=== PATIENT | female | born 1995 | race Hispanic/Latino ===

== ENCOUNTER → 2018-08-02 12:21 | Outpatient (CLI) | payer BC, SELFPAY ==
--- NOTE | 2018-08-06 12:09 | DIET.PN ---
Met for initial nutrition consultation. Pt reports she became very inactive due to depression; now doing better w/counseling and medication. Meds side effect cause wt gain; pt wants to lose wt. DX: Med nutrient interactions, wt gain Meds include: abilify Ht: 6 Weight hx- 1 yr ago: 160# Current: 227# BMI 44 Exercise: None. Used to like weight lifting & may try that again. Likes walking and running. Usual diet: likes anything. 2-3 meals, 1 snack daily. Eats w/family; helps w/food prep and shopping. Eat minimal processed foods. Assessment: Demonstrates good knowledge of healthy food choices and how to lose wt; needs encouragement and assistance with staying on focus now that depression is better controlled. Appears ready to work at lifestyle changes. Intervention: Provided ed on healthy plate model, portion control, importance of keeping track. Plan: Keep food record (prefers written journal) Increase exercise, starting with walking 15min 4X/week; increase weekly for goal of 30-60 minutes 4-5X/week. Will check insurance coverage; hopes to schedule f/u
== END ==
PROVIDERS: Visit Provider Psychiatry & Neurology Psychiatry
DX: E66.9 Obesity, unspecified (principal)
CPT/HCPCS: 97802

== ENCOUNTER → 2018-09-29 06:34 | Outpatient (CLI) | payer BC, SELFPAY ==
--- NOTE | 2018-09-29 06:37 | DI.US.S_ITS ---
PROCEDURE: US PELVIC COMPLETE INDICATIONS: AMENORRHEA TECHNIQUE: Real-time scanning was performed of the pelvic organs, with image documentation. Additional endovaginal scanning was necessary due to incomplete visualization of the adnexal and endometrial structures by transabdominal scanning. COMPARISON: None. FINDINGS: Transabdominal scanning: Limited scanning through the kidneys shows no hydronephrosis. No pathologic free abdominal or pelvic fluid. Endovaginal scanning: Uterus: Uterus is anteverted measuring 6.7 x 2.7 x 4.1 cm. The endometrium measures 7.8 mm in combined thickness. Ovaries: Right ovary measures 4.5 x 2.0 x 2.0 cm. Left ovary measures 2.9 x 2.0 x 1.4 cm. there multiple small cysts in ovaries. IMPRESSION: 1. Normal appearance of uterus. 2. Multiple small cysts in ovaries. Cannot rule out polycystic ovaries. Dictated by: Asim Jimenez M.D. on 09/29/2018 at 11:38 Approved by: Asim Jimenez M.D. on 09/29/2018 at 17:48
== END ==
PROVIDERS: PCP Family Medicine; Visit Provider Family Medicine
DX: N91.2 Amenorrhea, unspecified (principal); N83.202 Unspecified ovarian cyst, left side; N83.201 Unspecified ovarian cyst, right side
CPT/HCPCS: 76830; 76856

== ENCOUNTER → 2018-11-15 15:26 | Outpatient (CLI) | payer BC, SELFPAY ==
[2018-11-15 18:03] LABS: Follicle Stimulating Hormone 3.84 mIU/mL; Luteinizing Hormone 8.44 mIU/mL; Prolactin 11.6 ng/mL (3.0-18.6)
[2018-11-15 18:13] LABS: TSH w/ Reflex to FT4 1.87 uIU/mL (0.47-4.68)
[2018-11-18 21:35] LABS: Testosterone Total 55 ng/dL (2-45)
== END ==
PROVIDERS: PCP Family Medicine
DX: E28.2 Polycystic ovarian syndrome (principal)
CPT/HCPCS: 36415; 83001; 83002; 84146; 84402; 84403; 84443

== ENCOUNTER → 2019-02-22 12:06 | Outpatient (CLI) | payer BC, SELFPAY ==
[2019-02-22 13:12] LABS: Hemoglobin A1C% w Est Avg Glu 5.7 % (4.0-6.0)
[2019-02-22 13:24] LABS: Glucose 136 mg/dL (70-100)
[2019-02-22 13:35] LABS: LDL Cholesterol Direct 105 mg/dL (<100)
[2019-02-22 16:22] LABS: Follicle Stimulating Hormone 3.39 mIU/mL; Luteinizing Hormone 4.87 mIU/mL
[2019-02-26 11:12] LABS: Sex Hormone Binding Globulin 13 nmol/L (17-124); Testosterone, Bioavailable 16.8 ng/dL (0.5-8.5); Testosterone, Total 37 ng/dL (2-45); Testosterone,Free 8.2 pg/mL (0.2-5.0)
[2019-02-28 14:27] LABS: Albumin 4.5
--- NOTE | 2019-04-09 14:40 | PC.NURSE ---
Pt brought to ED by mother. Mother states pt is bipolar and in a manic state and unsafe and pt got out of [facility] [place] this morning. Mother states pt stated if mother didn't stop car she would jump out. Mother stopped car, didn't jump out. Mother brought pt to ED stating they were coming to bankruptcy processor patient's car. Marti SCOTT called as pt initially would not enter building and it was not known if patient was safe or having escalating behavior as per mother's report. Pt then voluntarily came into ED waiting area. Pt states she does not need to be seen. She denies SI / HI and is oriented to time / place/ person and situation. She is cooperative but appears angry. She states she has her medication and shows me the prescription vial. Police arrived and spoke to both parties. Mother states she feels safe being in car w/ patient. Verbal instructions given to all parties to return for SI/HI. Instructed mother to call 911 if any threatening behavior / behaviors making her feel unsafe. Marti SCOTT agree w/ plan of care.
== END ==
PROVIDERS: PCP Family Medicine
DX: E28.2 Polycystic ovarian syndrome (principal); Z11.3 Encounter for screening for infections with a predominantly sexual mode of transmission
CPT/HCPCS: 36415; 82040; 82947; 83001; 83002; 83036; 83721; 84270; 84403

== ENCOUNTER 2019-04-10 07:02 | Emergency (ER) | payer BC, SELFPAY ==
[2019-04-10 07:14] VITALS: BP 160/80; PULSE 91; RESP 16; TEMP 37.5; O2SAT 95; BMI 29.2
--- NOTE | 2019-04-10 07:22 | PC.NURSE ---
Pt's mom, Albina, is now in room with patient's permission.
--- NOTE | 2019-04-10 08:24 | ED_ITS ---
HPI - Psych General Chief Complaint: Psychiatric Symptoms Stated Complaint: states mental illness Time Seen by Provider: 04/10/19 07:07 Source: patient Mode of arrival: ambulatory Limitations: no limitations History of Present Illness HPI Narrative: 23-year-old female nonsmoker with history of bipolar presents with her mother and a chief complaint of insomnia for the past 2 days in feeling slightly nauseated. Additionally she has a nontender bump on the right anterior neck that she wants looked at. Patient states she has not taken her bipolar medications for 2 days because she does not like the way they make her feel. She denies any other change in diet or medications. She has had conversations with her psychiatrist about these medications and they are in agreement this is the most appropriate approach for now. She has a firm understanding that she will require medications and understands that if she does not take them she may get herself into trouble. She denies any suicidal or homicidal ideations. She also states that she has not taken her Ambien and this is likely why she is not sleeping. MD complaint: other Onset (ago): day(s) Duration: constant History of same: Yes Relieving factors: medication Exacerbating factors: other Context: not taking psychiatric medications Associated psychiatric symptoms: none Associated symptoms: nausea Treatments prior to arrival: none Related Data Previous Rx's Medication Instructions Recorded metformin 500 mg tablet See Rx Instructions PO .COMPLEX 11/19/18 #120 tab norethindrone 1.5 mg-ethinyl 1 tab PO DAILY #84 tab 11/19/18 estradiol 30 mcg(21)/iron 75 mg(7) tablet spironolactone 100 mg tablet 100 mg PO BID #60 tab 11/19/18 aripiprazole 30 mg tablet 30 mg PO DAILY 90 Days #90 tab 01/11/19 zolpidem 5 mg tablet 5 mg PO BEDTIME PRN #5 tab 03/15/19 Allergies Allergy/AdvReac Type Severity Reaction Status Date / Time No Known Drug Allergies Allergy Verified 04/10/19 07:14 Review of Systems Constitutional Denies chills, Reports difficulty sleeping, Reports fatigue, Denies fever(s), Denies lethargy and Denies weakness Eyes Denies change in vision, Denies eye discharge, Denies irritation and Denies loss of vision ENT Ears, Nose, Mouth, and Throat: Denies change in voice, Denies neck pain and Denies sore throat Cardiovascular Denies chest pain, Denies irregular heart rhythm, Denies lightheadedness, Denies palpitations, Denies dyspnea, Denies dyspnea on exertion and Denies orthopnea Respiratory Denies cough, Denies dyspnea, Denies dyspnea on exertion and Denies wheezing Gastrointestinal Gastrointestinal: Denies abdominal pain, Denies change in bowel habits, Denies diarrhea, Reports nausea and Denies vomiting Genitourinary Denies hematuria, Denies flank pain, Denies urinary incontinence and Denies urinary urgency Musculoskeletal Denies neck pain Integumentary/Breasts Denies pruritus, Denies erythema, Denies rash and Denies wounds Neurologic Denies confusion, Denies loss of vision and Denies weakness Psychiatric Denies anxiety, Denies confusion, Denies depression, Denies homicidal ideation and Denies suicidal ideation Endocrine Reports fatigue and Denies palpitations Hematologic/Lymphatic Denies easy bruising Allergic/Immunologic Denies wheezing [facility] Medical History Asthma (Chronic 1996) Bipolar disorder (Chronic 2017) Depression (Chronic 2015) PTSD (post-traumatic stress disorder) (Chronic 2015) Schizophrenia (Chronic 2015) Surgical History No history of previous surgery (Resolved) Family History Father No problems noted. Mother No problems noted. Social History Smoking Status: Never smoker alcohol intake: never Family History Father No problems noted. Mother No problems noted. Social History Smoking Status: Never smoker alcohol intake: never Exam Narrative Exam Narrative: GENERAL: 23-year-old female in no distress, visibly bothered by being here HEAD: Atraumatic. Normocephalic. No temporal or scalp tenderness. EYES: Pupils equal round and reactive. Extraocular motions intact. No scleral icterus. No injection or drainage. ENT: Nose without bleeding, purulent drainage or septal hematoma. Throat without erythema, tonsillar hypertrophy or exudate. Uvula midline. Airway patent. Nontender right anterior cervical node, freely movable, no redness or warmth NECK: Trachea midline. Supple, nontender, no meningeal signs. CARDIOVASCULAR: Regular rate and rhythm without murmurs, gallops, or rubs. RESPIRATORY: Clear to auscultation. Breath sounds equal bilaterally. No wheezes, rales, or rhonchi. GASTROINTESTINAL: Abdomen soft, non-tender, nondistended. No hepato- splenomegaly, or palpable masses. No guarding. EXTREMITIES: No clubbing, cyanosis, or edema. No joint tenderness, effusion, or edema noted. BACK: Nontender without deformity or crepitance. No flank tenderness. NEURO: AOx3. SKIN: No rash or erythema. Initial Vital Signs Initial Vital Signs: Vital Signs Temperature 99.5 F 04/10/19 07:14 Pulse Rate 91 H 04/10/19 07:14 Respiratory Rate 16 04/10/19 07:14 Blood Pressure 160/80 H 04/10/19 07:14 Pulse Oximetry 95 04/10/19 07:14 Course Vital Signs - 8 hr 04/10/19 07:14 Temperature 99.5 F Pulse Rate 91 H Respiratory Rate 16 Blood Pressure 160/80 H Pulse Oximetry 95 [facility] - Psych Lab Data Point of Care Testing Rapid Strep A Negative [facility] Narrative Medical decision making narrative: 23-year-old female with good insight and full capacity. She denies suicidal or homicidal ideations. She is performing her ADLs without difficulty. She has a firm understanding of why she needs to take her medications and what can happen if she does not. Patient agrees to become compliant with medications. We had a lengthy discussion about risks and benefits as well as return precautions. She has had her questions answered to her apparent satisfaction. Discharge Plan Departure Patient Disposition: Home Clinical Impression: Reactive cervical lymphadenopathy Bipolar disorder Qualifiers: Active/Remission status: remission status unspecified Qualified Code(s): F31.9 - Bipolar disorder, unspecified Discharge Date/Time: 04/10/19 08:05 Instructions: DI for Bipolar Disorder Activity Restrictions/Additional Instructions: *You have been diagnosed with [cervical reactive lymphadenopathy, nausea, insomnia] *What to do: *Take medications as directed *Follow up with your primary care provider in 2-3 days, call for an appointment. Let them know you were seen in the Emergency Department and that we ask that you be seen in follow up *Return to ER if you should have any new, worsening or concerning symptoms Prescriptions: No Action aripiprazole 30 mg tablet 30 mg PO DAILY 90 Days Qty: 90 RF: 3 zolpidem 5 mg tablet 5 mg PO BEDTIME PRN (Reason: insomnia) Qty: 5 RF: 1 metformin 500 mg tablet See Rx Instructions PO .COMPLEX Qty: 120 RF: 3 Loestrin Fe 1.5/30 (28-Day) 1.5 mg-30 mcg (21)/75 mg (7) tablet 1 tab PO DAILY Qty: 84 RF: 5 spironolactone 100 mg tablet 100 mg PO BID Qty: 60 RF: 5 Referrals: Radha Craig DO [Primary Care Provider] -
== END 2019-04-10 08:05 | disposition home or self-care (01) ==
PROVIDERS: Emergency Provider Emergency Medicine; PCP Family Medicine
DX: R59.0 Localized enlarged lymph nodes (principal); F31.9 Bipolar disorder, unspecified
CPT/HCPCS: 87880; 99282

== ENCOUNTER → 2019-11-04 13:09 | Outpatient (CLI) | payer BC, SELFPAY ==
--- NOTE | 2019-11-04 13:11 | DI.RAD.S_ITS ---
PROCEDURE: XR CHEST 2V INDICATIONS: COUGH TECHNIQUE: 2 views of the chest were acquired. COMPARISON: None. FINDINGS: Surgical changes and devices: None. Lungs and pleura: Lungs are clear. No pleural effusions or pneumothorax. Mediastinum: Mediastinal contours are normal. Heart size is normal. Bones and chest wall: No suspicious bony abnormalities. Soft tissues appear unremarkable. IMPRESSION: No acute cardiopulmonary disease process. Dictated by: Dai Mcfarlane MD, PhD on 11/04/2019 at 13:24 Approved by: Dai Mcfarlane MD, PhD on 11/04/2019 at 13:24
== END ==
PROVIDERS: PCP Family Medicine; Referring Provider Physician Assistant; Visit Provider Physician Assistant
DX: R05 Cough (principal)
CPT/HCPCS: 71046

== ENCOUNTER → 2020-03-10 15:05 | Outpatient (CLI) | payer BC, SELFPAY ==
[2020-03-14 09:01] LABS: COVID19 Sendout Detected (Not Detected)
== END ==
PROVIDERS: PCP Family Medicine; Visit Provider Physician Assistant
DX: Z20.818 Contact with and (suspected) exposure to other bacterial communicable diseases (principal)
CPT/HCPCS: 87635

== ENCOUNTER → 2020-05-11 11:22 | Outpatient (CLI) | payer BC, SELFPAY ==
[2020-05-11 12:33] LABS: Add Manual Diff / Slide Review NO; Basophils Absolute Auto 0 /uL (0-100); Basophils Percent Auto 0.7 % (0-2); Eosinophils Absolute Auto 100 /uL (0-450); Eosinophils Percent Auto 1.7 % (2-4); Hematocrit 43.1 % (36-46); Hemoglobin 14.4 g/dL (12.0-16.0); Lymphocytes Absolute Auto 2000 /uL (1100-4500); Mean Corpuscular HGB Conc 33.4 % (30-36); Mean Corpuscular Hemoglobin 28.3 PG (26-34); Mean Corpuscular Volume 84.9 fL (80-100); Monocytes Absolute Auto 400 /uL (0-900); Monocytes Percent Auto 7.2 % (3-14); Neutrophils Absolute Auto 3200 /uL (1500-7000); Neutrophils Percent Auto 55.4 % (50-75); Platelet Count 185 X10^3/uL (150-400); Red Blood Cell Count 5.07 X10^6/uL (4.0-5.2); Red Cell Distribution Width 14.4 % (11.6-14.8); White Blood Cell Count 5.8 X10^3/uL (4.5-11.0)
[2020-05-11 12:42] LABS: Hemoglobin A1C% w Est Avg Glu 11.1 % (4.0-6.0)
[2020-05-11 13:34] LABS: Free T4, Direct Thyroxine 2.11 ng/dL (0.78-2.19)
[2020-05-11 13:48] LABS: Thyroid Stimulating Hormone 3.72 uIU/mL (0.47-4.68)
[2020-05-11 14:23] LABS: Alanine Aminotransferase 117 IU/L (<35); Albumin 4.2 g/dL (3.5-5.0); Albumin Globulin Ratio 1.4 (1.0-2.8); Alkaline Phosphatase 80 U/L (38-126); Aspartate Aminotransferase 142 IU/L (14-36); BUN Creatinine Ratio 12.7 (6-22); Bilirubin Total 0.6 mg/dL (0.2-1.3); Blood Urea Nitrogen 9 mg/dL (7-17); Calcium 8.9 mg/dL (8.4-10.2); Carbon Dioxide 26 mmol/L (22-32); Chloride 95 mmol/L (98-107); Cholesterol 168 mg/dL (140-199); Estimated Glomerular Filt Rate > 60.0 mL/min (>60); Globulin 3.1 g/dL (1.7-4.1); HDL Cholesterol 24 mg/dL (40-60); HEMOLYSIS < 15 (0-50); LDL Cholesterol Calculated 71 mg/dL (<100); Potassium 4.3 mmol/L (3.4-5.1); Sodium 132 mmol/L (137-145); Total Protein 7.3 g/dL (6.3-8.2); Triglycerides 367 mg/dL (35-150)
[2020-05-11 14:39] LABS: Glucose 511 mg/dL (70-100)
[2020-05-12 04:12] LABS: Valproic Acid (Depakene) Total 122 ug/mL (50-100)
== END ==
PROVIDERS: Referring Provider Psychiatry & Neurology Psychiatry; Visit Provider Psychiatry & Neurology Psychiatry
DX: F25.0 Schizoaffective disorder, bipolar type (principal); Z51.81 Encounter for therapeutic drug level monitoring
CPT/HCPCS: 36415; 80053; 80061; 80164; 83036; 84439; 84443; 85025

== ENCOUNTER → 2020-07-31 10:16 | Outpatient (CLI) | payer BC, SELFPAY ==
[2020-07-31 12:11] LABS: Alanine Aminotransferase 37 IU/L (<35); Albumin 4.3 g/dL (3.5-5.0); Albumin Globulin Ratio 1.4 (1.0-2.8); Alkaline Phosphatase 66 U/L (38-126); Aspartate Aminotransferase 26 IU/L (14-36); BUN Creatinine Ratio 14.3 (6-22); Bilirubin Total 0.5 mg/dL (0.2-1.3); Blood Urea Nitrogen 8 mg/dL (7-17); Calcium 9.7 mg/dL (8.4-10.2); Carbon Dioxide 26 mmol/L (22-32); Chloride 99 mmol/L (98-107); Estimated Glomerular Filt Rate > 60.0 mL/min (>60); Globulin 3.1 g/dL (1.7-4.1); Glucose 360 mg/dL (70-100); HEMOLYSIS < 15 (0-50); Potassium 4.2 mmol/L (3.4-5.1); Sodium 135 mmol/L (137-145); Total Protein 7.4 g/dL (6.3-8.2)
[2020-08-01 08:29] LABS: Valproic Acid (Depakene) Total 86 ug/mL (50-100)
== END ==
PROVIDERS: PCP Registered Nurse; Referring Provider Psychiatry & Neurology Psychiatry; Visit Provider Psychiatry & Neurology Psychiatry
DX: F25.0 Schizoaffective disorder, bipolar type (principal); Z51.81 Encounter for therapeutic drug level monitoring; F43.10 Post-traumatic stress disorder, unspecified; R63.5 Abnormal weight gain; T50.905A Adverse effect of unspecified drugs, medicaments and biological substances, initial encounter
CPT/HCPCS: 36415; 80053; 80164; 80173; 96372

== ENCOUNTER → 2020-08-13 09:46 | Outpatient (CLI) | payer BC, SELFPAY ==
[2020-08-13 11:07] LABS: Hemoglobin A1C% w Est Avg Glu 12.9 % (4.0-6.0)
[2020-08-13 11:29] LABS: Creatinine Urine Random 89.2 mg/dL
[2020-08-13 11:31] LABS: Microalbumi Creatinin Ratio Ur 44.8 ug/mg CR (<30)
== END ==
PROVIDERS: PCP Registered Nurse; Referring Provider Registered Nurse; Visit Provider Registered Nurse
DX: E11.9 Type 2 diabetes mellitus without complications (principal)
CPT/HCPCS: 36415; 82043; 82570; 83036

== ENCOUNTER → 2021-01-21 08:20 | Outpatient (CLI) | payer BC, OTHER, SELFPAY ==
[2021-01-21 09:18] LABS: Add Manual Diff / Slide Review NO; Basophils Absolute Auto 0 /uL (0-100); Basophils Percent Auto 0.6 % (0-2); Eosinophils Absolute Auto 100 /uL (0-450); Eosinophils Percent Auto 1.4 % (2-4); Hematocrit 42.2 % (36-46); Hemoglobin 14.8 g/dL (12.0-16.0); Lymphocytes Absolute Auto 2700 /uL (1100-4500); Mean Corpuscular HGB Conc 35.1 % (30-36); Mean Corpuscular Hemoglobin 29.8 PG (26-34); Mean Corpuscular Volume 84.9 fL (80-100); Monocytes Absolute Auto 400 /uL (0-900); Monocytes Percent Auto 5.8 % (3-14); Neutrophils Absolute Auto 3700 /uL (1500-7000); Neutrophils Percent Auto 53.2 % (50-75); Platelet Count 247 X10^3/uL (150-400); Red Blood Cell Count 4.97 X10^6/uL (4.0-5.2); Red Cell Distribution Width 12.7 % (11.6-14.8)
[2021-01-21 09:34] LABS: Hemoglobin A1C% w Est Avg Glu 9.9 % (4.0-6.0)
[2021-01-21 10:28] LABS: Cholesterol 173 mg/dL (140-199); HDL Cholesterol 31 mg/dL (40-60); LDL Cholesterol Calculated 99 mg/dL (<100); Triglycerides 215 mg/dL (35-150)
[2021-01-21 10:30] LABS: Alanine Aminotransferase 38 IU/L (<35); Albumin 4.4 g/dL (3.5-5.0); Albumin Globulin Ratio 1.4 (1.0-2.8); Alkaline Phosphatase 67 U/L (38-126); Aspartate Aminotransferase 31 IU/L (14-36); BUN Creatinine Ratio 11.8 (6-22); Bilirubin Total 0.4 mg/dL (0.2-1.3); Blood Urea Nitrogen 6 mg/dL (7-17); Calcium 9.4 mg/dL (8.4-10.2); Carbon Dioxide 25 mmol/L (22-32); Chloride 99 mmol/L (98-107); Estimated Glomerular Filt Rate > 60.0 mL/min (>60); Globulin 3.2 g/dL (1.7-4.1); Glucose 308 mg/dL (70-100); HEMOLYSIS < 15 (0-50); Potassium 4.1 mmol/L (3.4-5.1); Sodium 136 mmol/L (137-145); Total Protein 7.6 g/dL (6.3-8.2)
[2021-01-21 11:36] LABS: Creatinine Urine Random 323.4 mg/dL
[2021-01-21 12:02] LABS: Microalbumi Creatinin Ratio Ur 90.9 ug/mg CR (<30); Microalbumin Urine Random 29.4 mg/dL (0-1.6)
[2021-01-22 05:50] LABS: Valproic Acid (Depakene) Total < 4 ug/mL (50-100)
== END ==
PROVIDERS: Psychiatry & Neurology Psychiatry; PCP Registered Nurse; Referring Provider Registered Nurse; Visit Provider Registered Nurse
DX: Z51.81 Encounter for therapeutic drug level monitoring (principal); R63.5 Abnormal weight gain; T50.905A Adverse effect of unspecified drugs, medicaments and biological substances, initial encounter; F25.0 Schizoaffective disorder, bipolar type; E78.5 Hyperlipidemia, unspecified; E11.9 Type 2 diabetes mellitus without complications
CPT/HCPCS: 36415; 80053; 80061; 80164; 82043; 82570; 83036; 85025

== ENCOUNTER 2021-08-31 13:02 | Emergency (ER) | payer BC, OTHER, MEDICAID, SELFPAY ==
[2021-08-31 14:05] VITALS: BP 154/92; PULSE 94; RESP 18; TEMP 36.8; O2SAT 96; BMI 36.3
[2021-08-31 14:23] LABS: Bacteria Urine Few (2-10); Culture Indicated Urine Cult Not Indicated; RBC Urine None Seen (0-5/HPF); Squamous Epithelial Cell Urine 0-1 /HPF (0-5/HPF); WBC Urine 0-1/HPF (0-5/HPF)
[2021-08-31 15:09] LABS: COVID19 -Nasal RAPID Negative (Negative)
== END 2021-08-31 16:00 | disposition left against medical advice (07) ==
PROVIDERS: Emergency Medicine; Emergency Provider Nurse Practitioner Critical Care Medicine; PCP Registered Nurse
DX: Z53.21 Procedure and treatment not carried out due to patient leaving prior to being seen by health care provider (principal); Z20.822 Contact with and (suspected) exposure to COVID-19
CPT/HCPCS: 81003; 81015; 81025; 87635; 99282; C9803

== ENCOUNTER 2021-09-01 13:54 | Emergency (ER) | payer BC, OTHER, MEDICAID, SELFPAY ==
[2021-09-01 14:08] VITALS: BP 150/67; PULSE 106; RESP 16; TEMP 36.8; O2SAT 95; BMI 36.3
[2021-09-01 14:36] LABS: COVID19 -Nasal RAPID Negative (Negative)
[2021-09-01 15:40] LABS: Appearance Urine UA SL CLOUDY; Bilirubin Urine UA NEGATIVE (NEGATIVE); Color Urine UA YELLOW; Glucose Urine UA 2+ g/dL (Negative); Ketones Urine UA TRACE (NEGATIVE); Leukocyte Esterase Urine UA 1+ (NEGATIVE); Nitrite Urine UA NEGATIVE (Negative); Occult Blood Urine UA 3+ (Negative); Protein Urine UA TRACE (Negative); Specific Gravity Urine UA <=1.005 (1.000-1.035); Urobilinogen Urine UA 0.2 E.U./dL (0.2)
--- NOTE | 2021-09-01 15:48 | ED.NAVMDI ---
HPI - Nausea/Vomiting/Diarrhea <JEFF Ang - Last Filed: 09/01/21 16:11> General Chief complaint: Nausea/Vomiting/Diarrhea Stated complaint: Vomiting x4 days Time Seen by Provider: 09/01/21 15:05 Source: patient Mode of arrival: Ambulatory History of Present Illness HPI Narrative: For your return to the emergency department today requesting COVID test, she reports she has had 3 days of nausea vomiting however this is resolved today. She denies any fever, chest pain, shortness breath, difficulty breathing, weakness, dizziness, or any other complaints. She denies any sick contacts, she denies any diarrhea, she denies any pain of any kind including abdominal pain or suprapubic pain. Related Data Previous Rx's Medication Instructions Recorded glucometer and test strips #1 ea 08/13/20 metformin 1,000 mg tablet,extended 1,000 mg PO BID #60 tab 01/08/21 release 24hr zolpidem 5 mg tablet 5 mg PO BEDTIME PRN #20 tab 05/13/21 haloperidol decanoate 100 mg/mL See Rx Instructions .ROUTE 06/17/21 intramuscular solution .COMPLEX #1 ml divalproex 500 mg tablet,delayed 500 mg PO BEDTIME #30 tab 08/06/21 release prazosin 5 mg capsule 5 mg PO .COMPLEX #30 cap 08/06/21 nitrofurantoin 100 mg PO BID 7 Days #14 cap 09/01/21 monohydrate/macrocrystals 100 mg capsule (Macrobid) Allergies Allergy/AdvReac Type Severity Reaction Status Date / Time No Known Drug Allergies Allergy Verified 08/31/21 14:08 Review of Systems <JEFF Ang - Last Filed: 09/01/21 16:11> Review of Systems Narrative: General: denies fever, chills Head/Neck: denies headache, neck pain Eyes: denies visual changes, eye pain Cardio: denies chest pain, palpitations Respiratory: denies shortness of breath, cough GI: denies abdominal pain, nausea, vomiting, or diarrhea : denies dysuria, hematuria MSK: denies joint pain, muscle weakness Skin: denies rash, itching Neuro: denies numbness, tingling Patient History <JEFF Ang - Last Filed: 09/01/21 16:11> Medical History Asthma (1997) Bipolar disorder (2018) Bronchitis Depression (2016) PTSD (post-traumatic stress disorder) (2016) Schizophrenia (2016) Surgical History No history of previous surgery Family History Father No problems noted. Mother No problems noted. Social History Smoking Status: Never smoker alcohol intake: never Smoking Status: Never smoker Substance Use Type: does not use Exam <JEFF Ang - Last Filed: 09/01/21 16:11> Narrative Exam Narrative: Independently reviewed vitals signs and nursing notes. General: Awake, alert, nontoxic, no cardiorespiratory distress Head/Neck: Atraumatic, neck full range of motion Eyes: EOMI, conjunctiva normal Nose: nares patent, no rhinorrhea Mouth/Throat: moist mucus membranes, posterior pharynx normal, no oral lesions Cardio: Regular rate and rhythm, no peripheral edema Respiratory: respirations unlabored without wheezing, stridor, or rales. No retractions. GI: Abdomen soft, nontender MSK: Moves all extremities, neurovascularly intact Skin: Normal capillary refill, no rash Neuro: Normal speech and cognition, normal gait Initial Vital Signs Initial Vital Signs: Vital Signs Temperature 98.3 F 09/01/21 14:08 Pulse Rate 106 H 09/01/21 14:08 Respiratory Rate 16 09/01/21 14:08 Blood Pressure 150/67 H 09/01/21 14:08 Pulse Oximetry 95 09/01/21 14:08 Course <JEFF Ang - Last Filed: 09/01/21 16:11> Orders Ordered: ED Orders 09/01/21 14:14 COVID19 -Nasal swab/Pre-Proc Stat 09/01/21 15:25 UA dip and micro [Urinalysis and Microscopic] Stat Urine Culture Stat Discontinued Medications Nitrofurantoin Macrocrystals (Nitrofurantoin Er 100 Mg Capsule) 100 mg PO NOW ONE Stop: 09/01/21 16:03 Last Admin: 09/01/21 16:06 Dose: 100 mg Documented by: SCOTT Vital Signs Vital signs: Vital Signs - 8 hr 09/01/21 14:08 09/01/21 16:11 Temperature 98.3 F Pulse Rate 106 H 95 H Respiratory Rate 16 Blood Pressure 150/67 H 116/73 Pulse Oximetry 95 96 MDM - Nausea/Vomiting/Diarrhea <OMEGA AngP - Last Filed: 09/01/21 16:11> Lab Data Labs: Lab Results 09/01/21 09/01/21 Range/Units 14:14 15:25 Urine Color Yellow Urine Appearance Sl cloudy Urine pH 6.0 (4.5-8.0) Ur Specific [place] <=1.005 (1.000-1.035) Urine Protein Trace H (Negative) Urine Glucose (UA) 2+ H (Negative) g/dL Urine Ketones Trace H (NEGATIVE) Urine Occult Blood 3+ H (Negative) Urine Nitrate Negative (Negative) Urine Bilirubin Negative (NEGATIVE) Urine Urobilinogen 0.2 (0.2) E.U./dL Ur Leukocyte Esterase 1+ H (NEGATIVE) Urine RBC 10-30/hpf H (0-5/HPF) Urine WBC 10-30/hpf H (0-5/HPF) Ur Squamous Epith Cells 5-10 /hpf H (0-5/HPF) Amorphous Sediment 1+ Urine Bacteria Moderate (10-30) H (None) Ur Culture Indicated? Specimen cultured SARS-CoV-2 (PCR) Negative (Negative) Point of Care Testing Test Results Negative Urine Dip Bedside Urine Glucose 500 mg/dl Bedside Urine Bilirubin - Negative Bedside Urine Ketone - Negative Urine Specific [place] 1.020 Bedside Urine Occult Blood ++ Bedside Urine pH 6.0 Bedside Urine Protein - Negative Bedside Urine Urobilinogen - Negative Bedside Urine Nitrite - Negative Bedside Urine Leukocytes +/- 15 Esterase MDM Narrative Medical decision making narrative: 26-year-old female returns to the emergency department today for COVID testing, she had this completed yesterday but left prior to being seen. Her COVID test was negative, she then told me that she had nausea vomiting for the last 3 days although this is improved and she does not have this problem today. Denies any fever, abdominal pain, dysuria, constipation or diarrhea. She reports she thought she ate something bad from [employer] 3 days ago and that maybe made her sick. Patient's test was negative, her urine did show moderate bacteria, white cells of 10 and 30, red blood cells of 10-30, leukocyte esterase of 1+. Opted to treat her with Macrobid as she did not have any CVA tenderness or systemic signs of infection. Patient understands to follow-up with her primary care provider in the next 1-2 days. She will return to the emergency department if she has any worsening of symptoms. Patient is appropriate and amenable to discharge home. Vital signs are stable on repeat examination is unremarkable. Patient has been informed of results. Patient has been given strict return to ER precautions for any new or worsening symptoms. Patient understands to follow up closely with outpatient providers as instructed. Patient understands plan and agrees to discharge home. All questions and concerns answered at this time. Discharge Plan Departure Patient Disposition: Home Clinical Impression: Encounter for screening laboratory testing for COVID-19 virus UTI (urinary tract infection) Qualifiers: Urinary tract infection type: acute cystitis Hematuria presence: with hematuria Qualified Code(s): N30.01 - Acute cystitis with hematuria Instructions: DI for Urinary Tract Infection (UTI) Activity Restrictions/Additional Instructions: *You have been diagnosed with a negative COVID test, nausea and vomiting which has resolved, and a bladder infection. Please take this medication, Macrobid twice a day for the next 7 days. If you develop a fever, worsening nausea vomiting, diarrhea, or any other concerning symptoms please return to the emergency department. It is reassuring that you do not have back pain, fever, or any other concerning symptoms at this time. Please try stay hydrated, and please check her blood sugar twice a day and ensure that it is less than 200. IOP feel better since *What to do: *Please continue to take your regular medications as directed. [ x] New medication prescriptions sent to your pharmacy: [[facility] in [place] ] [ ] New medication written as a paper prescription [ ] No new medications given *Please follow up with your primary care provider in 2-3 days, call for an appointment. Let them know you were seen in the Emergency Department and that we ask that you be seen in follow up. We will electronically transmit a record of today's note if your PCP is in our system *If you do not have a primary care provider please contact the [facility] Resource line at [phone]. They will ask some questions about your medical history and help get you set up with a doctor in the community. *Return to Emergency Department if you should have any new, worsening or concerning symptoms, such as [fever greater than 101F, chills, worsening pain, persistent vomiting or other bothersome symptoms] Prescriptions: New nitrofurantoin monohyd/m-cryst [Macrobid] 100 mg capsule 100 mg PO BID 7 Days Qty: 14 0RF Rx Instructions: must administer with a meal/food No Action divalproex 500 mg tablet,delayed release (DR/EC) 500 mg PO BEDTIME Qty: 30 5RF prazosin 5 mg capsule 5 mg PO .COMPLEX Qty: 30 5RF Rx Instructions: 1 cap at bedtime (DME) glucometer and test strips See Rx Instructions .Route .MEDSUPPLY Qty: 1 0RF Rx Instructions: 1 glucometer; test strips TID/day for 90 days, 2 refills metformin 1,000 mg tablet extended release 24hr 1,000 mg PO BID Qty: 60 0RF zolpidem 5 mg tablet 5 mg PO BEDTIME PRN (Reason: insomnia) Qty: 20 1RF Rx Instructions: Dr Drummond filling for Dr Hummel haloperidol decanoate 100 mg/mL solution See Rx Instructions .ROUTE .COMPLEX Qty: 1 2RF Dose Instruction: INJECT 100 MG EVERY 4 WEEKS (BRING TO CLINIC TO ADMINISTER) Rx Instructions: INJECT 100 MG EVERY 4 WEEKS (BRING TO CLINIC TO ADMINISTER) Referrals: Filippo Gutierres ARNP [Primary Care Provider] -
[2021-09-01 15:51] LABS: Amorphous Sediment Urine 1+; RBC Urine 10-30/HPF (0-5/HPF); Squamous Epithelial Cell Urine 5-10 /HPF (0-5/HPF); WBC Urine 10-30/HPF (0-5/HPF)
[2021-09-01 15:52] LABS: Bacteria Urine Moderate (10-30); Culture Indicated Urine Specimen Cultured
[2021-09-01] MEDS: NITROFURANTOIN ER 100 MG CAPSULE PO (16:06)
[2021-09-01 16:11] VITALS: BP 116/73; PULSE 95; O2SAT 96
== END 2021-09-01 16:13 | disposition home or self-care (01) ==
PROVIDERS: Emergency Medicine; Emergency Provider Nurse Practitioner Critical Care Medicine; PCP Registered Nurse
DX: N30.91 Cystitis, unspecified with hematuria (principal); R11.2 Nausea with vomiting, unspecified; Z20.822 Contact with and (suspected) exposure to COVID-19
CPT/HCPCS: 81001; 81003; 81025; 87077; 87086; 87147; 87635; 99283; C9803

== ENCOUNTER → 2021-09-03 12:52 | Outpatient (CLI) | payer BC, OTHER, MEDICAID, SELFPAY ==
[2021-09-03 14:24] LABS: Add Manual Diff / Slide Review NO; Basophils Absolute Auto 0 /uL (0-100); Basophils Percent Auto 0.5 % (0-2); Eosinophils Absolute Auto 100 /uL (0-450); Eosinophils Percent Auto 1.2 % (2-4); Hematocrit 43.3 % (36-46); Hemoglobin 14.7 g/dL (12.0-16.0); Lymphocytes Absolute Auto 1100 /uL (1100-4500); Lymphocytes Percent Auto 20.5 % (25-40); Mean Corpuscular HGB Conc 33.9 % (30-36); Mean Corpuscular Hemoglobin 28.9 PG (26-34); Mean Corpuscular Volume 85.2 fL (80-100); Monocytes Absolute Auto 300 /uL (0-900); Monocytes Percent Auto 6.3 % (3-14); Neutrophils Absolute Auto 3900 /uL (1500-7000); Neutrophils Percent Auto 71.5 % (50-75); Platelet Count 251 X10^3/uL (150-400); Red Blood Cell Count 5.08 X10^6/uL (4.0-5.2); Red Cell Distribution Width 12.4 % (11.6-14.8); White Blood Cell Count 5.5 X10^3/uL (4.5-11.0)
[2021-09-03 14:48] LABS: Hemoglobin A1C% w Est Avg Glu 12.2 % (4.0-6.0)
[2021-09-03 15:02] LABS: Alanine Aminotransferase 32 IU/L (<35); Albumin 4.4 g/dL (3.5-5.0); Albumin Globulin Ratio 1.4 (1.0-2.8); Alkaline Phosphatase 72 U/L (38-126); Aspartate Aminotransferase 33 IU/L (14-36); BUN Creatinine Ratio 14.5 (6-22); Bilirubin Total 0.5 mg/dL (0.2-1.3); Blood Urea Nitrogen 8 mg/dL (7-17); Calcium 9.2 mg/dL (8.4-10.2); Carbon Dioxide 24 mmol/L (22-32); Chloride 99 mmol/L (98-107); Cholesterol 164 mg/dL (140-199); Estimated Glomerular Filt Rate > 60.0 mL/min (>60); Globulin 3.1 g/dL (1.7-4.1); HDL Cholesterol 26 mg/dL (40-60); HEMOLYSIS < 15 (0-50); Potassium 4.1 mmol/L (3.4-5.1); Sodium 135 mmol/L (137-145); Total Protein 7.5 g/dL (6.3-8.2); Triglycerides 424 mg/dL (35-150)
[2021-09-03 15:15] LABS: Glucose 510 mg/dL (70-100)
[2021-09-03 15:18] LABS: Thyroid Stimulating Hormone 0.867 uIU/mL (0.47-4.68)
[2021-09-04 04:27] LABS: Valproic Acid (Depakene) Total 24 ug/mL (50-100)
== END ==
PROVIDERS: PCP Registered Nurse; Referring Provider Psychiatry & Neurology Psychiatry; Visit Provider Psychiatry & Neurology Psychiatry
DX: Z51.81 Encounter for therapeutic drug level monitoring (principal); F25.0 Schizoaffective disorder, bipolar type
CPT/HCPCS: 36415; 80053; 80061; 80164; 83036; 84443; 85025

== ENCOUNTER 2021-09-23 15:40 | Emergency (ER) | payer BC, OTHER, MEDICAID, SELFPAY ==
[2021-09-23 15:45] VITALS: BP 142/103; PULSE 103; RESP 20; TEMP 36.2; O2SAT 96; BMI 36.6
[2021-09-23 16:28] LABS: Add Manual Diff / Slide Review NO; Basophils Absolute Auto 0 /uL (0-100); Basophils Percent Auto 0.6 % (0-2); Eosinophils Absolute Auto 100 /uL (0-450); Eosinophils Percent Auto 1.1 % (2-4); Hematocrit 45.8 % (36-46); Lymphocytes Absolute Auto 2100 /uL (1100-4500); Lymphocytes Percent Auto 24.4 % (25-40); Mean Corpuscular HGB Conc 34.9 % (30-36); Mean Corpuscular Hemoglobin 28.7 PG (26-34); Mean Corpuscular Volume 82.2 fL (80-100); Monocytes Absolute Auto 500 /uL (0-900); Monocytes Percent Auto 5.9 % (3-14); Neutrophils Absolute Auto 6000 /uL (1500-7000); Platelet Count 238 X10^3/uL (150-400); Red Blood Cell Count 5.57 X10^6/uL (4.0-5.2); Red Cell Distribution Width 12.8 % (11.6-14.8); White Blood Cell Count 8.8 X10^3/uL (4.5-11.0)
--- NOTE | 2021-09-23 19:10 | PC.NURSE ---
Patient reports diabetes diagnosis for a year, does not check her BS and is only on oral control meds. Was called from psychiatrist office after lab draw to alert her to level ~ 500. Patient denies symptoms of hyperglycemia.
[2021-09-23 19:41] LABS: Alanine Aminotransferase 36 IU/L (<35); Albumin 4.5 g/dL (3.5-5.0); Albumin Globulin Ratio 1.3 (1.0-2.8); Alkaline Phosphatase 70 U/L (38-126); Aspartate Aminotransferase 29 IU/L (14-36); BUN Creatinine Ratio 25.5 (6-22); Bilirubin Total 0.5 mg/dL (0.2-1.3); Blood Urea Nitrogen 12 mg/dL (7-17); Calcium 9.4 mg/dL (8.4-10.2); Carbon Dioxide 23 mmol/L (22-32); Chloride 102 mmol/L (98-107); Estimated Glomerular Filt Rate > 60.0 mL/min (>60); Globulin 3.6 g/dL (1.7-4.1); Glucose 412 mg/dL (70-100); Potassium 4.3 mmol/L (3.4-5.1); Sodium 133 mmol/L (137-145); Total Protein 8.1 g/dL (6.3-8.2)
[2021-09-23 19:45] LABS: HEMOLYSIS 59 (0-50)
[2021-09-23] MEDS: SODIUM CHLORIDE 0.9% 1,000 ML 1000 ML IV (19:59)
--- NOTE | 2021-09-23 20:15 | ED_ITS ---
HPI - General Adult General Chief complaint: Diabetic Problem Stated complaint: GLUCOSE OVER 500 X3DAYS Time Seen by Provider: 09/23/21 19:11 Source: patient Mode of arrival: Ambulatory History of Present Illness HPI narrative: Patient is a 26-year-old female. His a known diabetic. Was diagnosed over a year ago. Was prescribed insulin by her primary doctor but has not taken any of the insulin. She states she does not know how to take it. She was told that she needs to make an appointment with the diabetic counselor but has not done so. This is been over a year ago. [facility] Had [facility] drawn. Was called and told that her blood sugar was elevated. Three days ago she did have some tingling in her hands and her feet which have resolved. She comes in today because of those symptoms and also her blood pressure being elevated. She does not take her blood pressure at home. She has an appointment with her primary provider already scheduled approximately 10 days from now. Related Data Previous Rx's Medication Instructions Recorded glucometer and test strips #1 ea 08/13/20 metformin 1,000 mg tablet,extended 1,000 mg PO BID #60 tab 01/08/21 release 24hr zolpidem 5 mg tablet 5 mg PO BEDTIME PRN #20 tab 05/13/21 divalproex 500 mg tablet,delayed 500 mg PO BEDTIME #30 tab 08/06/21 release prazosin 5 mg capsule 5 mg PO .COMPLEX #30 cap 08/06/21 haloperidol decanoate 100 mg/mL See Rx Instructions .ROUTE 09/02/21 intramuscular solution .COMPLEX #1 ml Allergies Allergy/AdvReac Type Severity Reaction Status Date / Time No Known Drug Allergies Allergy Verified 09/03/21 12:33 Review of Systems Constitutional Constitutional: Denies fever(s) Cardiovascular Comments: No chest pain Respiratory Comments: No shortness of breath Integumentary/Breasts Skin/Breast: Reports system reviewed and no additional complaints, except as documented Neurologic Neurologic: Reports system reviewed and no additional complaints, except as documented and Reports as per HPI Patient History Medical History Asthma (1997) Bipolar disorder (2017) Bronchitis Depression (2015) PTSD (post-traumatic stress disorder) (2016) Schizophrenia (2016) Surgical History No history of previous surgery Family History Father No problems noted. Mother No problems noted. Social History Smoking Status: Never smoker alcohol intake: never Smoking Status: Never smoker Substance Use Type: does not use Exam Initial Vital Signs Initial Vital Signs: Vital Signs Temperature 97.2 F L 09/23/21 15:45 Pulse Rate 103 H 09/23/21 15:45 Respiratory Rate 20 09/23/21 15:45 Blood Pressure 142/103 H 09/23/21 15:45 Pulse Oximetry 96 09/23/21 15:45 HENMT Head: normal to inspection and normocephalic Resp Effort & Inspection: normal respiratory effort Auscultation: clear to auscultation bilaterally Cardio Rate: regular rate Rhythm: regular rhythm Skin General: no rashes or lesions noted Neuro General: patient alert, patient awake, patient oriented x3 and moves all extremities Speech: speech normal Sensory Exam: no sensory deficits noted Extrem General: normal to inspection and capillary refill normal Psych Appearance: grossly normal and well kempt Course Orders Ordered: ED Orders 09/23/21 19:25 Comprehensive Metabolic Panel Stat 09/23/21 20:19 Consult to [facility] - Remote Sensing Research Scientist Stat Discontinued Medications Sodium Chloride (Normal Saline 0.9%) 1,000 mls @ 1,000 mls/hr IV BOLUS ONE Stop: 09/23/21 20:11 Last Infusion: 09/23/21 21:32 Dose: 0 mls/hr Documented by: Admin: 09/23/21 19:59 Dose: 1,000 mls/hr Documented by: ALETHEA Vital Signs Vital signs: Vital Signs - 8 hr 09/23/21 21:55 Pulse Rate 99 H Respiratory Rate 16 Blood Pressure 115/65 Pulse Oximetry 96 Medical Decision Making Lab Data Result diagrams: 09/23/21 16:00 09/23/21 19:25 Labs: Lab Results 09/23/21 09/23/21 Range/Units 16:00 19:25 WBC 8.8 (4.5-11.0) X10^3/uL RBC 5.57 H (4.0-5.2) X10^6/uL Hgb 16.0 (12.0-16.0) g/dL Hct 45.8 (36-46) % MCV 82.2 (80-100) fL MCH 28.7 (26-34) PG MCHC 34.9 (30-36) % RDW 12.8 (11.6-14.8) % Plt Count 238 (150-400) X10^3/uL Neut % (Auto) 68.0 (50-75) % Lymph % (Auto) 24.4 L (25-40) % [place] % (Auto) 5.9 (3-14) % Eos % (Auto) 1.1 L (2-4) % Baso % (Auto) 0.6 (0-2) % Neut # (Auto) 6000 (6649-1192) /uL Lymph # (Auto) 2100 (6318-6329) /uL [place] # (Auto) 500 (0-900) /uL Eos # (Auto) 100 (0-450) /uL Baso # (Auto) 0 (0-100) /uL Sodium 133 L (137-145) mmol/L Potassium 4.3 (3.4-5.1) mmol/L Chloride 102 (98-107) mmol/L Carbon Dioxide 23 (22-32) mmol/L BUN 12 (7-17) mg/dL Creatinine 0.47 L (0.52-1.04) mg/dL Estimated GFR > 60.0 (>60) mL/min BUN/Creatinine Ratio 25.5 H (6-22) Glucose 412 H (70-100) mg/dL Calcium 9.4 (8.4-10.2) mg/dL Total Bilirubin 0.5 (0.2-1.3) mg/dL AST 29 (14-36) IU/L ALT 36 H (<35) IU/L Alkaline Phosphatase 70 (38-126) U/L Total Protein 8.1 (6.3-8.2) g/dL Albumin 4.5 (3.5-5.0) g/dL Globulin 3.6 (1.7-4.1) g/dL Albumin/Globulin Ratio 1.3 (1.0-2.8) Point of Care Testing Glucose POC 299 Point of care testing: Point of Care Testing Glucose POC 299 MDM Narrative Medical decision making narrative: Patient is hyperglycemic but not in DKA. Her blood sugar improved with fluids. Social work was informed of the patient and they will contact the patient tomorrow when they come back in to work. Patient already has a primary provider appointment scheduled. She was informed that she needs to talk with her primary provider about her insulin. Patient does not know what kind of insulin that she has at home or how it is prescribed or had to use it. Her prescription was over a year old per her report. I will wait for her to talk with her primary doctor she has gone a year with her blood sugar being elevated. She was given return precautions. She expressed understanding and agreement. Discharge Plan Departure Patient Disposition: Home Clinical Impression: Diabetes mellitus, Hyperglycemia Instructions: DI for Hyperglycemia -- Adult Activity Restrictions/Additional Instructions: I recommend that tomorrow you contact your primary doctor for a follow-up. You do need to keep your appointment that is already scheduled for the . Continue all of your medications as directed. Return to the emergency department for any new or worsening symptoms. Prescriptions: No Action divalproex 500 mg tablet,delayed release (DR/EC) 500 mg PO BEDTIME Qty: 30 5RF prazosin 5 mg capsule 5 mg PO .COMPLEX Qty: 30 5RF Rx Instructions: 1 cap at bedtime (DME) glucometer and test strips See Rx Instructions .Route .MEDSUPPLY Qty: 1 0RF Rx Instructions: 1 glucometer; test strips TID/day for 90 days, 2 refills metformin 1,000 mg tablet extended release 24hr 1,000 mg PO BID Qty: 60 0RF zolpidem 5 mg tablet 5 mg PO BEDTIME PRN (Reason: insomnia) Qty: 20 1RF Rx Instructions: Dr Drummond filling for Dr Hummel haloperidol decanoate 100 mg/mL solution See Rx Instructions .ROUTE .COMPLEX Qty: 1 2RF Dose Instruction: INJECT 100 MG EVERY 4 WEEKS (BRING TO CLINIC TO ADMINISTER) Rx Instructions: INJECT 100 MG EVERY 4 WEEKS (BRING TO CLINIC TO ADMINISTER) Stand Alone Forms: Work Release Note
[2021-09-23 21:55] VITALS: BP 115/65; PULSE 99; RESP 16; O2SAT 96
--- NOTE | 2021-09-24 12:43 | CM.SWNOTE ---
WOOL SHEARING SUPERVISOR Note WOOL SHEARING SUPERVISOR receives f/u consult from ED provider Dr. Cardoso to ensure that patient's PCP office is aware of patient's need for diabetes education. WOOL SHEARING SUPERVISOR calls [facility] provider line to inform PCP's office of patient's presentation in the ED and concern for patient's high glucose levels. It is reported that PCP office is aware of patient and has been closely following up with patient. It is reported that there has been difficulty with patient's follow through with appts. Patient has appt scheduled for 10/04/21 with PCP. TIKI Abreu
== END 2021-09-23 22:04 | disposition home or self-care (01) ==
PROVIDERS: Emergency Medicine; Emergency Provider Emergency Medicine; PCP Registered Nurse
DX: E11.65 Type 2 diabetes mellitus with hyperglycemia (principal); Z79.84 Long term (current) use of oral hypoglycemic drugs
CPT/HCPCS: 36415; 80053; 82962; 85025; 96360; 96361; 99284

== ENCOUNTER 2022-06-25 19:30 | Emergency (ER) | payer BC, MEDICARE, MEDICAID, SELFPAY ==
[2022-06-25] VITALS (8 sets, daily range): BP systolic 126–139; BP diastolic 69–93; PULSE 102–114; RESP 20–31; TEMP 36.8; O2SAT 96–99; BMI 36.2
--- NOTE | 2022-06-25 19:49 | DI.RAD.S_ITS ---
PROCEDURE: XR CHEST 1V INDICATIONS: dka TECHNIQUE: One view of the chest was acquired. COMPARISON: [facility], CR, XR CHEST 2V, 11/04/2019, 13:07. FINDINGS: Surgical changes and devices: None. Lungs and pleura: Lungs are clear. No pleural effusions or pneumothorax. Mediastinum: Mediastinal contours appear normal. Heart size is normal. Bones and chest wall: No suspicious bony lesions. Overlying soft tissues appear unremarkable. IMPRESSION: No pneumonia found. Dictated by: Luis Armstrong M.D. on 06/25/2022 at 20:30 Approved by: Luis Armstrong M.D. on 06/25/2022 at 20:31
[2022-06-25] MEDS: SODIUM CHLORIDE 0.9% 1,000 ML 1000 ML IV (19:55)
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
--- NOTE | 2022-06-25 20:12 | ED.GENADULT ---
HPI - General Adult General Chief complaint: Diabetic Problem Stated complaint: vomiting, diabetic issues Time Seen by Provider: 06/25/22 19:48 Source: patient Mode of arrival: Ambulatory History of Present Illness HPI narrative: Patient is a 26-year-old female history of insulin-dependent diabetes, she states that she was living with her parents her parents throughout her insulin and her glucometer. She has not used her insulin for the last 2 weeks. Today at work she started feeling nauseous and had an elevated glucose. She did not throw up. No fever or chills. No painful or frequent urination. Worried that she might be in DKA. No chest pain or shortness of breath. She since since this happened she moved out of her parent's house and into a different house and plans on moving [place] cousin Related Data Previous Rx's Medication Instructions Recorded zolpidem 5 mg tablet 5 mg PO BEDTIME PRN insomnia #20 05/13/21 tabs glucometer and test strips #1 ea 11/04/21 BD Ultra Fine Pen Tips 31G x 8mm #1 ea 11/05/21 lancets 17 gauge (Acti-Po #200 ea 11/25/21 Lancets) haloperidol decanoate 100 mg/mL 100 mg IM Q4W #1 mL 01/01/22 intramuscular solution insulin glargine 100 unit/mL (3 10 unit (0.1 mL) SUBCUT QAM 01/24/22 mL) subcutaneous pen (Lantus diabetes #15 mL Solostar U-100 Insulin) divalproex 500 mg tablet,delayed 500 mg PO BEDTIME #30 tabs 01/27/22 release prazosin 5 mg capsule 5 mg PO BEDTIME #30 caps 01/27/22 metformin 1,000 mg tablet,extended 1,000 mg PO BID diabetes #180 tabs 01/29/22 release 24hr haloperidol 10 mg tablet 10 mg PO BEDTIME #30 tabs 05/20/22 haloperidol decanoate 100 mg/mL See Rx Instructions .Route 05/21/22 intramuscular solution .COMPLEX #1 mL insulin glargine 100 unit/mL (3 10 unit (0.1 mL) SUBCUT QAM #15 mL 06/25/22 mL) subcutaneous pen (Lantus Solostar U-100 Insulin) Allergies Allergy/AdvReac Type Severity Reaction Status Date / Time No Known Drug Allergies Allergy Verified 06/25/22 19:45 Review of Systems Review of Systems Narrative: GENERAL: Denies chills, fatigue, malaise, fever, sweats, travel HEENT: Denies sinus pain, ear pain, sore throat, difficulty swallowing, neck pain RESPIRATORY: Denies dyspnea, cough, wheezing, hemoptysis, sputum. CARDIOVASCULAR: Denies chest pain, palpitations, orthopnea, edema GASTROINTESTINAL: See HPI : Denies dysuria, frequency, incontinence, hematuria, urinary retention, flank pain. MUSCULOSKELETAL: Denies weakness, joint pain, or bony pain SKIN: No rash, no erythema, no pruritus NEUROLOGIC: Denies weakness, dizziness, headache, numbness, change in speech, confusion PSYCHIATRIC: No concerning psychosocial issues. 12 point review of systems is negative except for those stated above and HPI Patient History Medical History Asthma (1996) Bipolar disorder (2017) Bronchitis Depression (2015) PTSD (post-traumatic stress disorder) (2015) Schizophrenia (2016) Surgical History No history of previous surgery Family History Father No problems noted. Mother No problems noted. Social History Smoking Status: Never smoker alcohol intake: never Smoking Status: Never smoker alcohol intake frequency: 0-2 drinks per day Substance Use Type: does not use Exam Initial Vital Signs Initial Vital Signs: Vital Signs Temperature 98.3 F 06/25/22 19:43 Pulse Rate 114 H 06/25/22 19:43 Respiratory Rate 20 06/25/22 19:43 Blood Pressure 139/93 H 06/25/22 19:43 Pulse Oximetry 97 06/25/22 19:43 Oxygen Delivery Method 06/25/22 19:43 GENERAL: Well-appearing 26-year-old female and in no acute distress. HEENT: Head atraumatic,EOMI, pupils reactive, face symmetric, moist mucous membranes CARDIOVASCULAR: Regular rate and rhythm without murmurs, rubs or gallops. RESPIRATORY: Breath sounds equal bilaterally, no wheezes rales or rhonchi. ABDOMEN: Soft, nontender. Normoactive bowel sounds all 4 quadrants. No guarding or rebound. EXTREMITIES: Normal range of motion, no clubbing or edema. Neurovascularly intact NEUROLOGICAL: Alert and oriented x4.Normal gait and speech. SKIN: Warm, dry, no laceration, no petechiae, no rashes or lesions. Course Orders Ordered: ED Orders 06/25/22 19:49 Consult to MACHINE DESIGNER - Auto Rental Supervisor Stat Chest [XR chest 1V] Stat pH VBG Stat 06/25/22 19:50 CBC Auto Diff [Complete Blood Count AUTO DIFF] Stat CMP [Comprehensive Metabolic Panel] Stat Ketones (Beta-Hydroxybutyrate) Stat Lactate (Lactic Acid) Stat 06/25/22 20:01 EKG-12 Lead Stat Discontinued Medications Sodium Chloride (Normal Saline 0.9%) 1,000 mls @ 1,000 mls/hr IV BOLUS ONE Stop: 06/25/22 20:48 Last Infusion: 06/25/22 21:06 Dose: 0 mls/hr Documented By: Admin: 06/25/22 19:55 Dose: 1,000 mls/hr Documented By: AT Vital Signs Vital signs: Vital Signs - 8 hr 06/25/22 19:43 06/25/22 19:51 06/25/22 20:00 Temperature 98.3 F Pulse Rate 114 H 105 H 103 H Respiratory Rate 20 31 H Blood Pressure 139/93 H Pulse Oximetry 97 99 98 Oxygen Delivery Method Room Air Room Air 06/25/22 20:21 06/25/22 20:21 06/25/22 20:30 Temperature Pulse Rate 108 H Respiratory Rate Blood Pressure 127/77 126/74 Pulse Oximetry 99 Oxygen Delivery Method 06/25/22 20:30 06/25/22 21:00 06/25/22 21:06 Temperature Pulse Rate 102 H 103 H 106 H Respiratory Rate 28 H 26 H 20 Blood Pressure Pulse Oximetry 96 96 99 Oxygen Delivery Method Room Air Room Air 06/25/22 21:06 06/25/22 21:30 Temperature Pulse Rate 103 H Respiratory Rate 20 Blood Pressure 139/69 Pulse Oximetry 99 Oxygen Delivery Method Room Air Medical Decision Making Lab Data Result diagrams: 06/25/22 19:50 06/25/22 19:50 Labs: Lab Results 10/05/22 10/05/22 10/05/22 Range/Units 19:49 19:50 19:50 WBC 6.5 (4.5-11.0) X10^3/uL RBC 4.99 (4.0-5.2) X10^6/uL Hgb 15.1 (12.0-16.0) g/dL Hct 41.6 (36-46) % MCV 83.4 (80-100) fL MCH 30.2 (26-34) PG MCHC 36.3 H (30-36) % RDW 12.5 (11.6-14.8) % Plt Count 268 (150-400) X10^3/uL Neut % (Auto) 67.7 (50-75) % Lymph % (Auto) 23.6 L (25-40) % [place] % (Auto) 6.7 (3-14) % Eos % (Auto) 1.3 L (2-4) % Baso % (Auto) 0.7 (0-2) % Neut # (Auto) 4400 (7203-8392) /uL Lymph # (Auto) 1500 (9947-1547) /uL [place] # (Auto) 400 (0-900) /uL Eos # (Auto) 100 (0-450) /uL Baso # (Auto) 0 (0-100) /uL VBG pH 7.42 (7.33-7.43) Sodium 134 L (137-145) mmol/L Potassium 4.1 (3.4-5.1) mmol/L Chloride 97 L (98-107) mmol/L Carbon Dioxide 24 (22-32) mmol/L BUN 8 (7-17) mg/dL Creatinine 0.53 (0.52-1.04) mg/dL Estimated GFR > 60 (>60) mL/min BUN/Creatinine Ratio 15.1 (6-22) Glucose 394 H (70-100) mg/dL Lactate (0.7-2.1) mmol/L Calcium 8.6 (8.4-10.2) mg/dL Total Bilirubin 0.7 (0.2-1.3) mg/dL AST 39 H (14-36) IU/L ALT 42 H (<35) IU/L Alkaline Phosphatase 77 (38-126) U/L Total Protein 8.1 (6.3-8.2) g/dL Albumin 4.3 (3.5-5.0) g/dL Globulin 3.8 (1.7-4.1) g/dL Albumin/Globulin Ratio 1.1 (1.0-2.8) Ketones 0.40 H (<0.27) mmol/L 06/25/22 Range/Units 19:50 WBC (4.5-11.0) X10^3/uL RBC (4.0-5.2) X10^6/uL Hgb (12.0-16.0) g/dL Hct (36-46) % MCV (80-100) fL MCH (26-34) PG MCHC (30-36) % RDW (11.6-14.8) % Plt Count (150-400) X10^3/uL Neut % (Auto) (50-75) % Lymph % (Auto) (25-40) % [place] % (Auto) (3-14) % Eos % (Auto) (2-4) % Baso % (Auto) (0-2) % Neut # (Auto) (6402-8938) /uL Lymph # (Auto) (2429-4223) /uL [place] # (Auto) (0-900) /uL Eos # (Auto) (0-450) /uL Baso # (Auto) (0-100) /uL VBG pH (7.33-7.43) Sodium (137-145) mmol/L Potassium (3.4-5.1) mmol/L Chloride (98-107) mmol/L Carbon Dioxide (22-32) mmol/L BUN (7-17) mg/dL Creatinine (0.52-1.04) mg/dL Estimated GFR (>60) mL/min BUN/Creatinine Ratio (6-22) Glucose (70-100) mg/dL Lactate 1.4 (0.7-2.1) mmol/L Calcium (8.4-10.2) mg/dL Total Bilirubin (0.2-1.3) mg/dL AST (14-36) IU/L ALT (<35) IU/L Alkaline Phosphatase (38-126) U/L Total Protein (6.3-8.2) g/dL Albumin (3.5-5.0) g/dL Globulin (1.7-4.1) g/dL Albumin/Globulin Ratio (1.0-2.8) Ketones (<0.27) mmol/L Point of Care Testing Test Results Negative Urine Dip Bedside Urine Glucose 1000 mg/dl Bedside Urine Bilirubin - Negative Bedside Urine Ketone +/- 5 Urine Specific [place] 1.015 Bedside Urine Occult Blood - Negative Bedside Urine pH 6 Bedside Urine Protein +/- 15 Bedside Urine Urobilinogen - Negative Bedside Urine Nitrite - Negative Point of care testing: Point of Care Testing Test Results Negative Urine Dip Bedside Urine Glucose 1000 mg/dl Bedside Urine Bilirubin - Negative Bedside Urine Ketone +/- 5 Urine Specific [place] 1.015 Bedside Urine Occult Blood - Negative Bedside Urine pH 6 Bedside Urine Protein +/- 15 Bedside Urine Urobilinogen - Negative Bedside Urine Nitrite - Negative Imaging Data Chest x-ray: Radiologist's Impression: nt: Gilbert Puga MR#: [id number] : 1995 Acct:[id number] Age/Sex: 26 / F Date of Service: 06/25/22 Loc: ED Accession Number: [id number] ?? Procedure: XR chest 1V Ordering Provider: Luh Milan D.O. PROCEDURE:? XR CHEST 1V ? INDICATIONS:? dka ? TECHNIQUE:? One view of the chest was acquired.? ? COMPARISON:? [facility], , XR CHEST 2V, 11/04/2019, 13:07. ? FINDINGS:? ? Surgical changes and devices:? None.? ? Lungs and pleura:? Lungs are clear.? No pleural effusions or pneumothorax.? ? Mediastinum:? Mediastinal contours appear normal.? Heart size is normal.? ? Bones and chest wall:? No suspicious bony lesions.? Overlying soft tissues appear unremarkable.? ? IMPRESSION:? No pneumonia found. ? ? Dictated by: Luis Armstrong M.D. on 06/25/2022 at 20:30 ? ? ECG Data Interpretation: Normal sinus rhythm rate 103 NH interval 176 QRS [address] changes no T-wave inversions no sign ischemia MDM Narrative Medical decision making narrative: The patient has no evidence of DKA but is hyperglycemic. She has no sign of infection urinalysis is negative chest x-ray is negative. no Leukocytosis. It sounds as though she is more stable living situation. Discharge Plan Departure Patient Disposition: Home Clinical Impression: Acute hyperglycemia Instructions: DI for Diabetes Type 1 -- Adult Activity Restrictions/Additional Instructions: *You have been diagnosed with hyperglycemia type 1 diabetes *What to do: Please use your insulin. Recommend diet and exercise this will help control your diabetes *Continue to take medications as directed Lantus 10 units subQ every morning--> SENT TO [facility] *Follow up with your primary care provider in 2-3 days or call [phone] *Return to ER if you should have persistent vomiting elevated glucose >500, or any new, worsening or concerning symptoms Prescriptions: New insulin glargine [Lantus Solostar U-100 Insulin] 100 unit/mL (3 mL) insulin pen 10 unit SUBCUT QAM Qty: 15 0RF No Action divalproex 500 mg tablet,delayed release (DR/EC) 500 mg PO BEDTIME Qty: 30 5RF prazosin 5 mg capsule 5 mg PO BEDTIME Qty: 30 5RF zolpidem 5 mg tablet 5 mg PO BEDTIME PRN (Reason: insomnia) Qty: 20 1RF Rx Instructions: Dr Drummond filling for Dr Hummel (DME) BD Ultra Fine Pen Tips 31G x 8mm 100 package See Rx Instructions .ROUTE .MEDSUPPLY Qty: 1 2RF Rx Instructions: USE TO ADMINISTER LANTUS ONCE DAILY. haloperidol decanoate 100 mg/mL solution 100 mg IM Q4W Qty: 1 0RF Lantus Solostar U-100 Insulin 100 unit/mL (3 mL) insulin pen 10 unit SUBCUT QAM Qty: 15 3RF metformin 1,000 mg tablet extended release 24hr 1,000 mg PO BID Qty: 180 1RF haloperidol 10 mg tablet 10 mg PO BEDTIME Qty: 30 1RF Rx Instructions: Replaces injection haloperidol decanoate 100 mg/mL solution See Rx Instructions .ROUTE .COMPLEX Qty: 1 2RF Dose Instruction: INJECT 100 MG EVERY 4 WEEKS (BRING TO CLINIC TO ADMINISTER) Rx Instructions: INJECT 100 MG EVERY 4 WEEKS (BRING TO CLINIC TO ADMINISTER) (DME) glucometer and test strips See Rx Instructions .Route .MEDSUPPLY Qty: 1 0RF Rx Instructions: 1 glucometer; test strips TID/day for 90 days, 2 refills (DME) Acti-Po Lancets 17 gauge misc See Rx Instructions .Route Qty: 200 5RF Rx Instructions: As directed Referrals: Mariah Meyers MD [Primary Care Provider] - Visit Report Forms: Patient Portal/API
[2022-06-25 20:19] LABS: pH VBG 7.42 (7.33-7.43)
[2022-06-25 20:23] LABS: Add Manual Diff / Slide Review NO; Basophils Absolute Auto 0 /uL (0-100); Basophils Percent Auto 0.7 % (0-2); Eosinophils Absolute Auto 100 /uL (0-450); Eosinophils Percent Auto 1.3 % (2-4); Hematocrit 41.6 % (36-46); Hemoglobin 15.1 g/dL (12.0-16.0); Lymphocytes Absolute Auto 1500 /uL (1100-4500); Lymphocytes Percent Auto 23.6 % (25-40); Mean Corpuscular HGB Conc 36.3 % (30-36); Mean Corpuscular Hemoglobin 30.2 PG (26-34); Mean Corpuscular Volume 83.4 fL (80-100); Monocytes Absolute Auto 400 /uL (0-900); Monocytes Percent Auto 6.7 % (3-14); Neutrophils Absolute Auto 4400 /uL (1500-7000); Neutrophils Percent Auto 67.7 % (50-75); Platelet Count 268 X10^3/uL (150-400); Red Blood Cell Count 4.99 X10^6/uL (4.0-5.2); Red Cell Distribution Width 12.5 % (11.6-14.8); White Blood Cell Count 6.5 X10^3/uL (4.5-11.0)
[2022-06-25 20:36] LABS: Lactate (Lactic Acid) 1.4 mmol/L (0.7-2.1)
[2022-06-25 20:37] LABS: Alanine Aminotransferase 42 IU/L (<35); Albumin 4.3 g/dL (3.5-5.0); Albumin Globulin Ratio 1.1 (1.0-2.8); Alkaline Phosphatase 77 U/L (38-126); Aspartate Aminotransferase 39 IU/L (14-36); BUN Creatinine Ratio 15.1 (6-22); Bilirubin Total 0.7 mg/dL (0.2-1.3); Blood Urea Nitrogen 8 mg/dL (7-17); Calcium 8.6 mg/dL (8.4-10.2); Carbon Dioxide 24 mmol/L (22-32); Chloride 97 mmol/L (98-107); Estimated Glomerular Filt Rate > 60 mL/min (>60); Globulin 3.8 g/dL (1.7-4.1); Glucose 394 mg/dL (70-100); Potassium 4.1 mmol/L (3.4-5.1); Sodium 134 mmol/L (137-145); Total Protein 8.1 g/dL (6.3-8.2)
[2022-06-25 20:47] LABS: HEMOLYSIS 78 (0-50)
== END 2022-06-25 21:33 | disposition home or self-care (01) ==
PROVIDERS: Emergency Provider Emergency Medicine; PCP Family Medicine
DX: E10.65 Type 1 diabetes mellitus with hyperglycemia (principal); R07.9 Chest pain, unspecified
CPT/HCPCS: 36415; 71045; 80053; 81003; 81025; 82009; 83605; 83986; 85025; 93005; 99284

== ENCOUNTER 2022-11-27 18:03 | Emergency (ER) | payer BC, MEDICARE, MEDICAID, SELFPAY ==
[2022-11-27 18:11] VITALS: BP 159/85; PULSE 124; RESP 18; TEMP 37.2; O2SAT 96; BMI 34.3
[2022-11-27 18:56] LABS: UR Morphine/Opiate cutoff 300 Negative (Negative); Ur Creatinine Normal (Normal); Ur Specific Gravity Normal (Normal); Urine Amphetamines Negative (Negative); Urine Barbiturates Negative (Negative); Urine Benzodiazepines Negative (Negative); Urine Cocaine Negative (Negative); Urine MDMA Negative (Negative); Urine Methadone Negative (Negative); Urine Methamphetamines Negative (Negative); Urine Oxycodone Negative (Negative); Urine Phencyclidine Negative (Negative); Urine Tetrahydrocannabinol Negative (Negative); Urine Tricyclic Antidepressant Negative (Negative); Urine pH Normal (Normal)
[2022-11-27 18:58] LABS: Basophils Absolute Auto 0 /uL (0-100); Basophils Percent Auto 0.3 % (0-2); Eosinophils Absolute Auto 0 /uL (0-450); Eosinophils Percent Auto 0.5 % (2-4); Hematocrit 44.9 % (36-46); Hemoglobin 15.5 g/dL (12.0-16.0); Lymphocytes Absolute Auto 1100 /uL (1100-4500); Lymphocytes Percent Auto 14.8 % (25-40); Mean Corpuscular HGB Conc 34.5 % (30-36); Mean Corpuscular Hemoglobin 28.7 PG (26-34); Mean Corpuscular Volume 83.2 fL (80-100); Monocytes Absolute Auto 600 /uL (0-900); Neutrophils Absolute Auto 5500 /uL (1500-7000); Neutrophils Percent Auto 76.4 % (50-75); White Blood Cell Count 7.2 X10^3/uL (4.5-11.0)
[2022-11-27 19:02] LABS: Acetaminophen < 10 ug/mL (10-30); Alanine Aminotransferase 29 IU/L (<35); Albumin 4.3 g/dL (3.5-5.0); Albumin Globulin Ratio 1.2 (1.0-2.8); Alkaline Phosphatase 80 U/L (38-126); Aspartate Aminotransferase 27 IU/L (14-36); BUN Creatinine Ratio 15.9 (6-22); Bilirubin Total 0.4 mg/dL (0.2-1.3); Blood Urea Nitrogen 7 mg/dL (7-17); Carbon Dioxide 21 mmol/L (22-32); Chloride 101 mmol/L (98-107); Estimated Glomerular Filt Rate > 60 mL/min (>60); Ethanol (ETOH) < 10 mg/dL; Globulin 3.7 g/dL (1.7-4.1); Glucose 302 mg/dL (70-100); HEMOLYSIS < 15 (0-50); Potassium 3.5 mmol/L (3.4-5.1); Salicylate < 1.0 mg/dL (<20); Sodium 137 mmol/L (137-145)
[2022-11-27 19:03] LABS: Add Manual Diff / Slide Review SLIDE REVIEW
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
--- NOTE | 2022-11-27 19:17 | ED_ITS ---
HPI - Psych General Chief Complaint: Psychiatric Symptoms Stated Complaint: mental health check up, DMII Time Seen by Provider: 11/27/22 19:17 History of Present Illness HPI Narrative: 27F nonsmoker with history of schizoaffective disorder bipolar type, type 2 diabetes presents with suicidal ideation without plan requesting help. She has not been taking any medications for upwards of 2 years. Related Data Previous Rx's Medication Instructions Recorded zolpidem 5 mg tablet 5 mg PO BEDTIME PRN insomnia #20 05/13/21 tabs glucometer and test strips #1 ea 11/04/21 BD Ultra Fine Pen Tips 31G x 8mm #1 ea 11/05/21 lancets 17 gauge (Acti-Po #200 ea 11/25/21 Lancets) haloperidol decanoate 100 mg/mL 100 mg IM Q4W #1 mL 01/01/22 intramuscular solution insulin glargine 100 unit/mL (3 10 unit (0.1 mL) SUBCUT QAM 01/24/22 mL) subcutaneous pen (Lantus diabetes #15 mL Solostar U-100 Insulin) divalproex 500 mg tablet,delayed 500 mg PO BEDTIME #30 tabs 01/27/22 release prazosin 5 mg capsule 5 mg PO BEDTIME #30 caps 01/27/22 metformin 1,000 mg tablet,extended 1,000 mg PO BID diabetes #180 tabs 01/29/22 release 24hr haloperidol 10 mg tablet 10 mg PO BEDTIME #30 tabs 05/20/22 haloperidol decanoate 100 mg/mL See Rx Instructions .Route 05/21/22 intramuscular solution .COMPLEX #1 mL insulin glargine 100 unit/mL (3 10 unit (0.1 mL) SUBCUT QAM #15 mL 06/25/22 mL) subcutaneous pen (Lantus Solostar U-100 Insulin) Allergies Allergy/AdvReac Type Severity Reaction Status Date / Time No Known Drug Allergies Allergy Verified 07/02/22 13:47 Patient History Medical History (Updated 07/10/22 @ 00:00 by ) Asthma (1997) Bipolar disorder (2018) Bronchitis Depression (2015) PTSD (post-traumatic stress disorder) (2016) Schizophrenia (2016) Surgical History No history of previous surgery Family History Father No problems noted. Mother No problems noted. Social History Smoking Status: Never smoker alcohol intake: never Smoking Status: Never smoker alcohol intake frequency: 0-2 drinks per day Substance Use Type: does not use Exam Initial Vital Signs Initial Vital Signs: Vital Signs Temperature 98.9 F 11/27/22 18:11 Pulse Rate 124 H 11/27/22 18:11 Respiratory Rate 18 11/27/22 18:11 Blood Pressure 159/85 H 11/27/22 18:11 Pulse Oximetry 96 11/27/22 18:11 Oxygen Delivery Method Room Air 11/27/22 18:11 Course Orders Ordered: ED Orders 11/27/22 18:33 Acetaminophen Stat Complete Blood Count AUTO DIFF Stat Comprehensive Metabolic Panel Stat Ethanol (ETOH) Stat Free T4, Direct Thyroxine Stat Salicylate Stat Thyroid Stimulating Hormone Stat Urine Drug Screen, Rapid Stat Vital Signs Vital signs: Vital Signs - 8 hr 11/27/22 18:11 Temperature 98.9 F Pulse Rate 124 H Respiratory Rate 18 Blood Pressure 159/85 H Pulse Oximetry 96 Oxygen Delivery Method Room Air MDM - Psych Lab Data 11/27/22 18:33 11/27/22 18:33 Labs: Lab Results 11/27/22 11/27/22 11/27/22 Range/Units 18:33 18:33 18:33 WBC 7.2 (4.5-11.0) X10^3/uL RBC 5.40 H (4.0-5.2) X10^6/uL Hgb 15.5 (12.0-16.0) g/dL Hct 44.9 (36-46) % MCV 83.2 (80-100) fL MCH 28.7 (26-34) PG MCHC 34.5 (30-36) % RDW 13.0 (11.6-14.8) % Neut % (Auto) 76.4 H (50-75) % Lymph % (Auto) 14.8 L (25-40) % [place] % (Auto) 8.0 (3-14) % Eos % (Auto) 0.5 L (2-4) % Baso % (Auto) 0.3 (0-2) % Neut # (Auto) 5500 (9009-4428) /uL Lymph # (Auto) 1100 (4162-0900) /uL [place] # (Auto) 600 (0-900) /uL Eos # (Auto) 0 (0-450) /uL Baso # (Auto) 0 (0-100) /uL Sodium 137 (137-145) mmol/L Potassium 3.5 (3.4-5.1) mmol/L Chloride 101 (98-107) mmol/L Carbon Dioxide 21 L (22-32) mmol/L BUN 7 (7-17) mg/dL Creatinine 0.44 L (0.52-1.04) mg/dL Estimated GFR > 60 (>60) mL/min BUN/Creatinine Ratio 15.9 (6-22) Glucose 302 H (70-100) mg/dL Calcium 9.0 (8.4-10.2) mg/dL Total Bilirubin 0.4 (0.2-1.3) mg/dL AST 27 (14-36) IU/L ALT 29 (<35) IU/L Alkaline Phosphatase 80 (38-126) U/L Total Protein 8.0 (6.3-8.2) g/dL Albumin 4.3 (3.5-5.0) g/dL Globulin 3.7 (1.7-4.1) g/dL Albumin/Globulin Ratio 1.2 (1.0-2.8) Salicylates < 1.0 (<20) mg/dL U Opiates 300ng/mL cut Negative (Negative) Ur Oxycodone Screen Negative (Negative) Urine Methadone Screen Negative (Negative) Acetaminophen < 10 (10-30) ug/mL Ur Barbiturates Screen Negative (Negative) U Tricyclic Antidepress Negative (Negative) Ur Phencyclidine Scrn Negative (Negative) Ur Amphetamines Screen Negative (Negative) U Methamphetamines Scrn Negative (Negative) Ur MDMA Scrn (Ecstasy) Negative (Negative) U Benzodiazepines Scrn Negative (Negative) Urine Cocaine Screen Negative (Negative) U Marijuana (THC) Screen Negative (Negative) Ethyl Alcohol < 10 ( - 10) mg/dL Point of Care Testing Test Results Negative Urine Dip Bedside Urine Glucose Negative Bedside Urine Bilirubin - Negative Bedside Urine Ketone +/- 5 Urine Specific [place] 1.010 Bedside Urine Occult Blood - Negative Bedside Urine pH 6.0 Bedside Urine Protein - Negative Bedside Urine Urobilinogen +/- 1mg Bedside Urine Nitrite - Negative Bedside Urine Leukocytes - Negative Esterase Discharge Plan Departure Prescriptions: No Action divalproex 500 mg tablet,delayed release (DR/EC) 500 mg PO BEDTIME Qty: 30 5RF prazosin 5 mg capsule 5 mg PO BEDTIME Qty: 30 5RF zolpidem 5 mg tablet 5 mg PO BEDTIME PRN (Reason: insomnia) Qty: 20 1RF Rx Instructions: Dr Drummond filling for Dr Hummel (DME) BD Ultra Fine Pen Tips 31G x 8mm 100 package See Rx Instructions .ROUTE .MEDSUPPLY Qty: 1 2RF Rx Instructions: USE TO ADMINISTER LANTUS ONCE DAILY. haloperidol decanoate 100 mg/mL solution 100 mg IM Q4W Qty: 1 0RF Lantus Solostar U-100 Insulin 100 unit/mL (3 mL) insulin pen 10 unit SUBCUT QAM Qty: 15 3RF metformin 1,000 mg tablet extended release 24hr 1,000 mg PO BID Qty: 180 1RF haloperidol 10 mg tablet 10 mg PO BEDTIME Qty: 30 1RF Rx Instructions: Replaces injection haloperidol decanoate 100 mg/mL solution See Rx Instructions .ROUTE .COMPLEX Qty: 1 2RF Dose Instruction: INJECT 100 MG EVERY 4 WEEKS (BRING TO CLINIC TO ADMINISTER) Rx Instructions: INJECT 100 MG EVERY 4 WEEKS (BRING TO CLINIC TO ADMINISTER) (DME) glucometer and test strips See Rx Instructions .Route .MEDSUPPLY Qty: 1 0RF Rx Instructions: 1 glucometer; test strips TID/day for 90 days, 2 refills (DME) Acti-Po Lancets 17 gauge misc See Rx Instructions .Route Qty: 200 5RF Rx Instructions: As directed insulin glargine [Lantus Solostar U-100 Insulin] 100 unit/mL (3 mL) insulin pen 10 unit SUBCUT QAM Qty: 15 0RF Referrals: Mariah Meyers MD [Primary Care Provider] -
--- NOTE | 2022-11-27 19:42 | PC.NURSE ---
Went to call pt for blood work and there was no answer. [facility] states they believe she left with her mother and has not come back
--- NOTE | 2022-11-27 19:43 | CM.SWNOTE ---
ALL SOURCE INTELLIGENCE TECHNICIAN Note ALL SOURCE INTELLIGENCE TECHNICIAN is informed by RN that patient left lobby, it was reported that her mother tried to get patient to return to ED waiting room but patient endorsed she did not want to return. RN to inform ED provider. Soraya Walker, ROLL HAULER
[2022-11-27 19:58] LABS: Platelet Count 257 X10^3/uL (150-400)
[2022-11-27 20:03] LABS: Free T4, Direct Thyroxine 2.42 ng/dL (0.78-2.19)
== END 2022-11-27 19:40 | disposition left against medical advice (07) ==
PROVIDERS: Emergency Medicine; Emergency Provider Emergency Medicine; PCP Family Medicine
DX: R45.851 Suicidal ideations (principal)
CPT/HCPCS: 36415; 80053; 80305; 80320; 80329; 81003; 81025; 84439; 84443; 85025; 99283; G0480

== ENCOUNTER 2022-11-30 18:47 | Emergency (ER) | payer BC, MEDICARE, MEDICAID, SELFPAY ==
[2022-11-30 18:47] VITALS: BP 142/93; PULSE 108; RESP 16; TEMP 37.1; O2SAT 96
--- NOTE | 2022-11-30 19:13 | ED.PSYCH ---
HPI - Psych <Luh Milan DO - Last Filed: 12/02/22 04:12> General Chief Complaint: Psychiatric Symptoms Stated Complaint: Mental health, not sleeping Time Seen by Provider: 11/30/22 18:55 Source: patient Mode of arrival: EMS History of Present Illness HPI Narrative: Patient is a 27-year-old female history of bipolar versus schizoaffective disorder, depression presenting today with worsening depression and suicidal thoughts. She has not been taking Haldol or Depakote since at least May. Mom reports that she has been doing well until the last 2 weeks. She reports she has not slept basically at all she is not taken her meds. Patient reports feeling extremely depressed she has a vision of her lying in a bath tub with wrist bleeding. However she does not want to do that to her sister. She reports arguments with her mother. But is okay with mother being here and in the room although patient is questioned separately. Patient denies any voices. She is been hospitalized numerous times for psychiatric care she is requesting psychiatric care now. She is complaining of some palpitations. Patient also reports that she does not feel like her family is her biological family. She says that she looks different than them she is nothing like them she would like to try and find her biological. Related Data Previous Rx's Medication Instructions Recorded divalproex 500 mg tablet,delayed 500 mg PO BEDTIME #30 tabs 01/27/22 release haloperidol 10 mg tablet 10 mg PO BEDTIME #30 tabs 05/20/22 Allergies Allergy/AdvReac Type Severity Reaction Status Date / Time No Known Drug Allergies Allergy Verified 12/01/22 18:36 Review of Systems <Luh Milan DO - Last Filed: 12/02/22 04:12> Review of Systems ROS Unobtainable: All systems reviewed & are unremarkable except as noted in HPI and below Patient History <Luh Milan DO - Last Filed: 12/02/22 04:12> Medical History (Updated 12/01/22 @ 18:42 by Kings Cardoso DO) Asthma (1997) Bipolar disorder (2018) Bronchitis Depression (2016) PTSD (post-traumatic stress disorder) (2016) Schizophrenia (2016) Surgical History No history of previous surgery Family History Father No problems noted. Mother No problems noted. Social History Smoking Status: Current every day smoker alcohol intake: never Smoking Status: Current every day smoker tobacco type: vaping alcohol intake frequency: 0-2 drinks per day Substance Use Type: does not use Exam <DO Zurdo De Los Santos Last Filed: 12/02/22 04:12> Initial Vital Signs Initial Vital Signs: Vital Signs Temperature 98.7 F 11/30/22 18:47 Pulse Rate 108 H 11/30/22 18:47 Respiratory Rate 16 11/30/22 18:47 Blood Pressure 142/93 H 11/30/22 18:47 Pulse Oximetry 96 11/30/22 18:47 Oxygen Delivery Method Room Air 11/30/22 18:47 GENERAL: 27-year-old female HEENT: Head atraumatic,EOMI, pupils reactive, face symmetric, [moist] mucous membranes CARDIOVASCULAR: Regular rate and rhythm without murmurs, rubs or gallops. RESPIRATORY: Breath sounds equal bilaterally, no wheezes rales or rhonchi. EXTREMITIES: Normal range of motion, no clubbing or edema. Neurovascularly intact NEUROLOGICAL: Alert and oriented x4. SKIN: Warm, dry, no laceration, no petechiae, no rashes or lesions. Psych Appearance: grossly normal and well kempt Mental Status: mental status grossly normal Speech and Movement: speech clear, speech not pressured and slowed movement Affect: blunted Attitude: cooperative Thought Content: suicidality Judgment: limited <DO Zurdo Landers Last Filed: 12/01/22 19:06> Initial Vital Signs Initial Vital Signs: Vital Signs Temperature 98.7 F 11/30/22 18:47 Pulse Rate 108 H 11/30/22 18:47 Respiratory Rate 16 11/30/22 18:47 Blood Pressure 142/93 H 11/30/22 18:47 Pulse Oximetry 96 11/30/22 18:47 Oxygen Delivery Method Room Air 11/30/22 18:47 Course <DO Zurdo De Los Santos Last Filed: 12/02/22 04:12> Orders Ordered: Discontinued Medications Diphenhydramine HCl (Diphenhydramine 25 Mg Tablet) 50 mg PO NOW ONE Stop: 11/30/22 21:23 Last Admin: 11/30/22 21:41 Dose: 50 mg Documented By: SUKUMAR Divalproex Sodium (Divalproex Er 250 Mg Tab) 500 mg PO NOW ONE Stop: 11/30/22 19:22 Last Admin: 11/30/22 19:47 Dose: Not Given Documented By: SUKUMAR Haloperidol (Haloperidol 5 Mg Tablet) 5 mg PO NOW ONE Stop: 11/30/22 19:22 Last Admin: 11/30/22 19:50 Dose: Not Given Documented By: SUKUMAR Haloperidol (Haloperidol 5 Mg Tablet) 10 mg PO NOW ONE Stop: 11/30/22 19:35 Last Admin: 11/30/22 19:48 Dose: Not Given Documented By: SUKUMAR Sodium Chloride (Normal Saline 0.9%) 1,000 mls @ 1,000 mls/hr IV BOLUS ONE Stop: 12/01/22 18:24 Last Infusion: 12/01/22 20:12 Dose: 0 mls/hr Documented By: Admin: 12/01/22 17:44 Dose: 1,000 mls/hr Documented By: HARLEY Insulin Human Regular (Insulin Regular 100 Unit/Ml 3 Ml Vial) 2 unit SUBCUT NOW ONE Stop: 12/01/22 17:26 Last Admin: 12/01/22 17:45 Dose: 2 unit Documented By: HARLEY Co-signed By: AT Vital Signs Vital signs: Vital Signs - 8 hr 11/30/22 18:47 Temperature 98.7 F Pulse Rate 108 H Respiratory Rate 16 Blood Pressure 142/93 H Pulse Oximetry 96 Oxygen Delivery Method Room Air <Kings Cardoso DO - Last Filed: 12/01/22 19:06> Orders Ordered: Discontinued Medications Diphenhydramine HCl (Diphenhydramine 25 Mg Tablet) 50 mg PO NOW ONE Stop: 11/30/22 21:23 Last Admin: 11/30/22 21:41 Dose: 50 mg Documented By: SUKUMAR Divalproex Sodium (Divalproex Er 250 Mg Tab) 500 mg PO NOW ONE Stop: 11/30/22 19:22 Last Admin: 11/30/22 19:47 Dose: Not Given Documented By: SUKUMAR Haloperidol (Haloperidol 5 Mg Tablet) 5 mg PO NOW ONE Stop: 11/30/22 19:22 Last Admin: 11/30/22 19:50 Dose: Not Given Documented By: SUKUMAR Haloperidol (Haloperidol 5 Mg Tablet) 10 mg PO NOW ONE Stop: 11/30/22 19:35 Last Admin: 11/30/22 19:48 Dose: Not Given Documented By: SUKUMAR Sodium Chloride (Normal Saline 0.9%) 1,000 mls @ 1,000 mls/hr IV BOLUS ONE Stop: 12/01/22 18:24 Last Infusion: 12/01/22 20:12 Dose: 0 mls/hr Documented By: Admin: 12/01/22 17:44 Dose: 1,000 mls/hr Documented By: HARLEY Insulin Human Regular (Insulin Regular 100 Unit/Ml 3 Ml Vial) 2 unit SUBCUT NOW ONE Stop: 12/01/22 17:26 Last Admin: 12/01/22 17:45 Dose: 2 unit Documented By: HARLEY Co-signed By: AT Vital Signs Vital signs: Vital Signs - 8 hr 11/30/22 18:47 Temperature 98.7 F Pulse Rate 108 H Respiratory Rate 16 Blood Pressure 142/93 H Pulse Oximetry 96 Oxygen Delivery Method Room Air MDM - Psych <Luh Milan DO - Last Filed: 12/02/22 04:12> Lab Data 11/30/22 18:25 11/30/22 18:25 Labs: Lab Results 11/30/22 11/30/22 11/30/22 Range/Units 18:25 18:25 18:25 WBC 6.0 (4.5-11.0) X10^3/uL RBC 5.27 H (4.0-5.2) X10^6/uL Hgb 15.1 (12.0-16.0) g/dL Hct 43.7 (36-46) % MCV 83.0 (80-100) fL MCH 28.7 (26-34) PG MCHC 34.6 (30-36) % RDW 13.1 (11.6-14.8) % Plt Count 221 (150-400) X10^3/uL Neut % (Auto) 65.9 (50-75) % Lymph % (Auto) 24.6 L (25-40) % Frontier % (Auto) 8.4 (3-14) % Eos % (Auto) 0.8 L (2-4) % Baso % (Auto) 0.3 (0-2) % Neut # (Auto) 4000 (1241-1943) /uL Lymph # (Auto) 1500 (6394-8530) /uL Frontier # (Auto) 500 (0-900) /uL Eos # (Auto) 0 (0-450) /uL Baso # (Auto) 0 (0-100) /uL Sodium 133 L (137-145) mmol/L Potassium 4.2 (3.4-5.1) mmol/L Chloride 95 L (98-107) mmol/L Carbon Dioxide 26 (22-32) mmol/L BUN 10 (7-17) mg/dL Creatinine 0.55 (0.52-1.04) mg/dL Estimated GFR > 60 (>60) mL/min BUN/Creatinine Ratio 18.2 (6-22) Glucose 367 H (70-100) mg/dL Calcium 9.5 (8.4-10.2) mg/dL Magnesium (1.6-2.3) mg/dL Total Bilirubin 0.4 (0.2-1.3) mg/dL AST 33 (14-36) IU/L ALT 53 H (<35) IU/L Alkaline Phosphatase 82 (38-126) U/L Total Creatine Kinase (30-135) U/L Total Protein 7.8 (6.3-8.2) g/dL Albumin 4.3 (3.5-5.0) g/dL Globulin 3.5 (1.7-4.1) g/dL Albumin/Globulin Ratio 1.2 (1.0-2.8) TSH 2.35 (0.47-4.68) uIU/mL U Opiates 300ng/mL cut (Negative) Ur Oxycodone Screen (Negative) Urine Methadone Screen (Negative) Ur Barbiturates Screen (Negative) U Tricyclic Antidepress (Negative) Ur Phencyclidine Scrn (Negative) Ur Amphetamines Screen (Negative) U Methamphetamines Scrn (Negative) Ur MDMA Scrn (Ecstasy) (Negative) U Benzodiazepines Scrn (Negative) Urine Cocaine Screen (Negative) U Marijuana (THC) Screen (Negative) Ethyl Alcohol < 10 ( - 10) mg/dL SARS-CoV-2 (PCR) (Negative) 11/30/22 12/01/22 12/01/22 Range/Units 20:07 07:00 18:25 WBC (4.5-11.0) X10^3/uL RBC (4.0-5.2) X10^6/uL Hgb (12.0-16.0) g/dL Hct (36-46) % MCV (80-100) fL MCH (26-34) PG MCHC (30-36) % RDW (11.6-14.8) % Plt Count (150-400) X10^3/uL Neut % (Auto) (50-75) % Lymph % (Auto) (25-40) % Frontier % (Auto) (3-14) % Eos % (Auto) (2-4) % Baso % (Auto) (0-2) % Neut # (Auto) (4588-9918) /uL Lymph # (Auto) (5481-4157) /uL Frontier # (Auto) (0-900) /uL Eos # (Auto) (0-450) /uL Baso # (Auto) (0-100) /uL Sodium (137-145) mmol/L Potassium (3.4-5.1) mmol/L Chloride (98-107) mmol/L Carbon Dioxide (22-32) mmol/L BUN (7-17) mg/dL Creatinine (0.52-1.04) mg/dL Estimated GFR (>60) mL/min BUN/Creatinine Ratio (6-22) Glucose (70-100) mg/dL Calcium (8.4-10.2) mg/dL Magnesium 1.7 (1.6-2.3) mg/dL Total Bilirubin (0.2-1.3) mg/dL AST (14-36) IU/L ALT (<35) IU/L Alkaline Phosphatase (38-126) U/L Total Creatine Kinase 216 H (30-135) U/L Total Protein (6.3-8.2) g/dL Albumin (3.5-5.0) g/dL Globulin (1.7-4.1) g/dL Albumin/Globulin Ratio (1.0-2.8) TSH (0.47-4.68) uIU/mL U Opiates 300ng/mL cut Negative (Negative) Ur Oxycodone Screen Negative (Negative) Urine Methadone Screen Negative (Negative) Ur Barbiturates Screen Negative (Negative) U Tricyclic Antidepress Negative (Negative) Ur Phencyclidine Scrn Negative (Negative) Ur Amphetamines Screen Negative (Negative) U Methamphetamines Scrn Negative (Negative) Ur MDMA Scrn (Ecstasy) Negative (Negative) U Benzodiazepines Scrn Negative (Negative) Urine Cocaine Screen Negative (Negative) U Marijuana (THC) Screen Negative (Negative) Ethyl Alcohol ( - 10) mg/dL SARS-CoV-2 (PCR) Negative (Negative) Point of Care Testing Test Results Negative Glucose POC 255 Urine Dip Bedside Urine Bilirubin - Negative Bedside Urine Ketone +/- 5 Urine Specific [place] 1.015 Bedside Urine Occult Blood - Negative Bedside Urine pH 6.5 Bedside Urine Protein - Negative Bedside Urine Urobilinogen - Negative Bedside Urine Nitrite - Negative Bedside Urine Leukocytes - Negative Esterase ECG Data Interpretation: Normal sinus rhythm rate 93 OH interval 152 QRS 72 QTC 400 T-wave inversions noted in lead [address] changes very similar to previous EKG 06/25/2022 MDM Narrative Medical decision making narrative: Patient is a 27-year-old female currently voluntary for placement. History of bipolar versus schizophrenia with depressive suicidal ideations. Currently stable. She is given her home medications of Haldol 10 mg and Depakote 750 mg. <Kings Cardoso, DO - Last Filed: 12/01/22 19:06> Lab Data Labs: Lab Results 11/30/22 11/30/22 11/30/22 Range/Units 18:25 18:25 18:25 WBC 6.0 (4.5-11.0) X10^3/uL RBC 5.27 H (4.0-5.2) X10^6/uL Hgb 15.1 (12.0-16.0) g/dL Hct 43.7 (36-46) % MCV 83.0 (80-100) fL MCH 28.7 (26-34) PG MCHC 34.6 (30-36) % RDW 13.1 (11.6-14.8) % Plt Count 221 (150-400) X10^3/uL Neut % (Auto) 65.9 (50-75) % Lymph % (Auto) 24.6 L (25-40) % Frontier % (Auto) 8.4 (3-14) % Eos % (Auto) 0.8 L (2-4) % Baso % (Auto) 0.3 (0-2) % Neut # (Auto) 4000 (7153-0617) /uL Lymph # (Auto) 1500 (7211-4809) /uL Frontier # (Auto) 500 (0-900) /uL Eos # (Auto) 0 (0-450) /uL Baso # (Auto) 0 (0-100) /uL Sodium 133 L (137-145) mmol/L Potassium 4.2 (3.4-5.1) mmol/L Chloride 95 L (98-107) mmol/L Carbon Dioxide 26 (22-32) mmol/L BUN 10 (7-17) mg/dL Creatinine 0.55 (0.52-1.04) mg/dL Estimated GFR > 60 (>60) mL/min BUN/Creatinine Ratio 18.2 (6-22) Glucose 367 H (70-100) mg/dL Calcium 9.5 (8.4-10.2) mg/dL Magnesium (1.6-2.3) mg/dL Total Bilirubin 0.4 (0.2-1.3) mg/dL AST 33 (14-36) IU/L ALT 53 H (<35) IU/L Alkaline Phosphatase 82 (38-126) U/L Total Creatine Kinase (30-135) U/L Total Protein 7.8 (6.3-8.2) g/dL Albumin 4.3 (3.5-5.0) g/dL Globulin 3.5 (1.7-4.1) g/dL Albumin/Globulin Ratio 1.2 (1.0-2.8) TSH 2.35 (0.47-4.68) uIU/mL U Opiates 300ng/mL cut (Negative) Ur Oxycodone Screen (Negative) Urine Methadone Screen (Negative) Ur Barbiturates Screen (Negative) U Tricyclic Antidepress (Negative) Ur Phencyclidine Scrn (Negative) Ur Amphetamines Screen (Negative) U Methamphetamines Scrn (Negative) Ur MDMA Scrn (Ecstasy) (Negative) U Benzodiazepines Scrn (Negative) Urine Cocaine Screen (Negative) U Marijuana (THC) Screen (Negative) Ethyl Alcohol < 10 ( - 10) mg/dL SARS-CoV-2 (PCR) (Negative) 11/30/22 12/01/22 12/01/22 Range/Units 20:07 07:00 18:25 WBC (4.5-11.0) X10^3/uL RBC (4.0-5.2) X10^6/uL Hgb (12.0-16.0) g/dL Hct (36-46) % MCV (80-100) fL MCH (26-34) PG MCHC (30-36) % RDW (11.6-14.8) % Plt Count (150-400) X10^3/uL Neut % (Auto) (50-75) % Lymph % (Auto) (25-40) % Frontier % (Auto) (3-14) % Eos % (Auto) (2-4) % Baso % (Auto) (0-2) % Neut # (Auto) (4628-9625) /uL Lymph # (Auto) (6749-0359) /uL Frontier # (Auto) (0-900) /uL Eos # (Auto) (0-450) /uL Baso # (Auto) (0-100) /uL Sodium (137-145) mmol/L Potassium (3.4-5.1) mmol/L Chloride (98-107) mmol/L Carbon Dioxide (22-32) mmol/L BUN (7-17) mg/dL Creatinine (0.52-1.04) mg/dL Estimated GFR (>60) mL/min BUN/Creatinine Ratio (6-22) Glucose (70-100) mg/dL Calcium (8.4-10.2) mg/dL Magnesium 1.7 (1.6-2.3) mg/dL Total Bilirubin (0.2-1.3) mg/dL AST (14-36) IU/L ALT (<35) IU/L Alkaline Phosphatase (38-126) U/L Total Creatine Kinase 216 H (30-135) U/L Total Protein (6.3-8.2) g/dL Albumin (3.5-5.0) g/dL Globulin (1.7-4.1) g/dL Albumin/Globulin Ratio (1.0-2.8) TSH (0.47-4.68) uIU/mL U Opiates 300ng/mL cut Negative (Negative) Ur Oxycodone Screen Negative (Negative) Urine Methadone Screen Negative (Negative) Ur Barbiturates Screen Negative (Negative) U Tricyclic Antidepress Negative (Negative) Ur Phencyclidine Scrn Negative (Negative) Ur Amphetamines Screen Negative (Negative) U Methamphetamines Scrn Negative (Negative) Ur MDMA Scrn (Ecstasy) Negative (Negative) U Benzodiazepines Scrn Negative (Negative) Urine Cocaine Screen Negative (Negative) U Marijuana (THC) Screen Negative (Negative) Ethyl Alcohol ( - 10) mg/dL SARS-CoV-2 (PCR) Negative (Negative) Point of Care Testing Test Results Negative Glucose POC 255 Urine Dip Bedside Urine Bilirubin - Negative Bedside Urine Ketone +/- 5 Urine Specific [place] 1.015 Bedside Urine Occult Blood - Negative Bedside Urine pH 6.5 Bedside Urine Protein - Negative Bedside Urine Urobilinogen - Negative Bedside Urine Nitrite - Negative Bedside Urine Leukocytes - Negative Esterase MDM Narrative Medical decision making narrative: Patient is a 27-year-old female currently voluntary for placement. History of bipolar versus schizophrenia with depressive suicidal ideations. Currently stable. She is given her home medications of Haldol 10 mg and Depakote [address] Cardoso: Received turned over. Reviewed patient's workup up to this point. She is medically cleared. Patient is voluntary. Was seen by social work. We did have an accepting facility however they stated that her blood sugar needed to be lower. Patient has not been on any blood sugar regulating medications. Was given fluids and insulin which brought her blood sugar below the threshold of the accepting facility. Patient has been accepted. She has stable for transport. Continues to be voluntary. Discharge Plan Departure Patient Disposition: Xfer Psychiatric Hosp Clinical Impression: Bipolar disorder Prescriptions: No Action divalproex 500 mg tablet,delayed release (DR/EC) 500 mg PO BEDTIME Qty: 30 5RF haloperidol 10 mg tablet 10 mg PO BEDTIME Qty: 30 1RF Rx Instructions: Replaces injection Referrals: Mariah Meyers MD [Primary Care Provider] -
[2022-11-30 19:42] LABS: Add Manual Diff / Slide Review NO; Basophils Absolute Auto 0 /uL (0-100); Basophils Percent Auto 0.3 % (0-2); Eosinophils Absolute Auto 0 /uL (0-450); Eosinophils Percent Auto 0.8 % (2-4); Hematocrit 43.7 % (36-46); Hemoglobin 15.1 g/dL (12.0-16.0); Lymphocytes Absolute Auto 1500 /uL (1100-4500); Lymphocytes Percent Auto 24.6 % (25-40); Mean Corpuscular HGB Conc 34.6 % (30-36); Mean Corpuscular Hemoglobin 28.7 PG (26-34); Monocytes Absolute Auto 500 /uL (0-900); Monocytes Percent Auto 8.4 % (3-14); Neutrophils Absolute Auto 4000 /uL (1500-7000); Neutrophils Percent Auto 65.9 % (50-75); Platelet Count 221 X10^3/uL (150-400); Red Blood Cell Count 5.27 X10^6/uL (4.0-5.2); Red Cell Distribution Width 13.1 % (11.6-14.8)
--- NOTE | 2022-11-30 19:48 | PC.NURSE ---
provider ok'd use of home meds d/t medication availability
[2022-11-30 19:51] LABS: Alanine Aminotransferase 53 IU/L (<35); Albumin 4.3 g/dL (3.5-5.0); Albumin Globulin Ratio 1.2 (1.0-2.8); Alkaline Phosphatase 82 U/L (38-126); Aspartate Aminotransferase 33 IU/L (14-36); BUN Creatinine Ratio 18.2 (6-22); Bilirubin Total 0.4 mg/dL (0.2-1.3); Blood Urea Nitrogen 10 mg/dL (7-17); Calcium 9.5 mg/dL (8.4-10.2); Carbon Dioxide 26 mmol/L (22-32); Chloride 95 mmol/L (98-107); Estimated Glomerular Filt Rate > 60 mL/min (>60); Ethanol (ETOH) < 10 mg/dL; Globulin 3.5 g/dL (1.7-4.1); Glucose 367 mg/dL (70-100); HEMOLYSIS < 15 (0-50); Potassium 4.2 mmol/L (3.4-5.1); Sodium 133 mmol/L (137-145); Total Protein 7.8 g/dL (6.3-8.2)
[2022-11-30 20:21] LABS: TSH w/ Reflex to FT4 2.35 uIU/mL (0.47-4.68)
[2022-11-30 20:37] LABS: Ur Creatinine Normal (Normal); Ur Specific Gravity Normal (Normal); Urine pH Normal (Normal)
[2022-11-30 20:38] LABS: UR Morphine/Opiate cutoff 300 Negative (Negative); Urine Amphetamines Negative (Negative); Urine Barbiturates Negative (Negative); Urine Benzodiazepines Negative (Negative); Urine Cocaine Negative (Negative); Urine MDMA Negative (Negative); Urine Methadone Negative (Negative); Urine Methamphetamines Negative (Negative); Urine Oxycodone Negative (Negative); Urine Phencyclidine Negative (Negative); Urine Tetrahydrocannabinol Negative (Negative); Urine Tricyclic Antidepressant Negative (Negative)
[2022-11-30 21:29] VITALS: BP 133/82; PULSE 120; RESP 17; TEMP 36.6; O2SAT 93
--- NOTE | 2022-11-30 21:36 | PC.NURSE ---
Patient stepped out of the room and stated I'm glad there is no knife around, That's scary isn't it I told the patient no but I would like for you to stay in you room please X3.
[2022-11-30] MEDS: diphenhydrAMINE 25 MG TABLET 50 MG PO (21:41)
[2022-12-01 07:16] VITALS: BP 154/73; PULSE 85; RESP 18; TEMP 36.2; O2SAT 99
--- NOTE | 2022-12-01 07:17 | PC.NURSE ---
Pt awake, alert, and oriented x4/4, speaking in clear and coherent sentences. Calm, cooperative, and distractable. Breathing even and unlabored, skin warm and dry, with no acute distress noted. Pt moving extremities independently, repositioning self. Updated pt on plan of care and provided water per request.
[2022-12-01 07:24] LABS: COVID19 -Nasal RAPID Negative (Negative)
--- NOTE | 2022-12-01 12:47 | CM.SWNOTE ---
Addendum entered by Max Newton 12/01/22 18:46: Pt screened and accepted for admission to [facility] per RN Vickie. Accepting provider is Dr. Heather Dean. Pt can arrive JADA, unit asks to be notified when we have an ETA. Also call RN report at departure to the same number [phone] Max Newton, LINE PULLER, [facility] Original Note: LINE PULLER Mental Health Evaluation LINE PULLER - Forging Roll Operator Assessment LINE PULLER - Forging Roll Operator Assessment Start: 12/01/22 12:27 Freq: Status: Active Protocol: Document 12/01/22 12:27 VR (Rec: 12/01/22 12:46 VR [id number]) LINE PULLER/Forging Roll Operator Assessment Time Spent with Patient Start date 12/01/22 Visit Start Time 12:00 End date 12/01/22 Visit End Time 12:30 Total time Care Management spent on 30 patient visit-in minutes Mental Health Screening Include Onset, Duration, Intensity Presenting Problem Pt is a 27yo female who presents to the ED with her mother on the night of 11/30 for concern of mental health crisis. Pt reportedly has been decompensating for the past two weeks. pt indicates she is experiencing constant AH that say horrible things. about me. about everything. scary. i couldn't even tell you what they say it's so bad. Pt notes AH to harm herself they say to kill myself. when asked of a plan she states so many, and is not able to fully elaborate. she denies desire to end her life but does identify concern she needs to listen to the voices. she also reports crazy delusional thoughts about family and friends but is unable to provide details. she denies HI. she endorses VH see all kinds of crazy things. they're scary she then gets up out of bed and begins to walk around the room appearing to look at the corners of the room. she states i just heard Mony. when SW asked what specifically she heard pt states Mony mother of ashok. she also reports recent poor sleep, unable to provide details. Precipitating Event(s) Pt reportedly has not been routinely taking medications since roughly August. Pt denies she is enrolled in any OP MH services. Patient Strengths Pt actively seeking extra support and requesting voluntary IP psychiatric treatment. While identifying paranoia about her mom pt identifies mom as a support. Current Behavioral Health Provider(s) None Include Facility, Provider, Ph. # Psych. Hx Mental Health and Chemical Pt has a hx of Bipolar Dependency disorder she estimates began around her early 20's. No current OP MH services. She notes she took Haldol today, which she had been prescribed in the past, but has not been taking for a number of months. Pt PCP is Dr. Mariah Meyers Pt denies all relevant drug or alcohol use. On this visit BAL and UTOX are negative for all. Family Hx of Behavioral Abuse Unknown Psychiatric Hospitalizations (date(s)/ Pt reports she has had at location) least three [facility] admissions. [facility] . Psychosocial information & Support Pt lives with mom, dad, and Systems sister in [place]. School/Work Pt does not work. She graduated from high school. Legal Concerns Legal Matters - Outstanding Issues Pt denies all pending charges. denies hx of assaultive bx. denies access to firearms. Mental Status Orientation (Person/Place/Time) A&Ox4 Stated Mood scared Affect (Congruent with Mood?) apprehensive, congruent with mood. Thought Content - Specify/Describe Pt identifies AVH as above. Obsessions, Delusions, Hallucinations She does appaear to be responding to internal stimuli but is calm, cooperative, and easily re-directed. Also reported paranoia that her family isn't my real family. Thought Processes (Rvnrokc-Fplnbsnf-Xuou mildly tangential, largely Ywvvobuc-Nuglssjt-Mmmwarnzdz- organized. Goal directed. Efhyfezfiyuyyz-Ftljotf-Pjjczuvvzxql- Thought Blocking) Speech (Phxtuz-Ameq-Aidxjch-Rapid-Soft- Slow to respond at times but Loud-Pressured) largely WNL Motor (Bfqvcq-Hokmruwbu-Csdg-Other) Mildly restless. Initially sitting on bed, but then gets up and walks around the room a few times, then sits back down on bed. Insight (Tuud-Erfk-Lzli/Limited) Fair Judgement (Eiad-Rqnv-Qrwq/Limited) Impaired Impulse Control (Adequate-Impaired) Adequate Memory (Swgnguaqc-Avjryi-Unzsla, Adequate Impaired-Intact) Concentration (Intact-Impaired) largely intact Attention (Intact-Impaired) easily distracted Behavior (Appropriate-Inappropriate) calm, cooperative, appropriate Risk Assessment Suicidal Ideation (Plan) Yes: identifies suicidal thoughts and AH to harm herself. Homicidal Ideation (Plan) No Comment Pt identifies suicidal thoughts but denies plan or intent. she denies desire to be but does identify AH to harm herself. she identifies feeling some pressure to act on these thoughts. Pt identified to be at high risk of harm to herself. she denies concern she would harm herself here in the ED or in a structured setting like IP admission. Intervention Intervention SW met with pt at bedside after she had been here in the ED for over 17 hours. Pt is lying in bed when SW arrives to the room. Pt is polite and easily engaged in assessment. Pt confirmed her name and date of and is A&Ox4. Pt details recent increase in AVH as detailed above. Pt presents with some psychomotor agitation as above but is easily redirected. Pt is not currently taking regular psychiatric medications and is not enrolled in OP MH services. She identifies concern she would harm herself if discharged home. she is requesting voluntary IP psychiatric admission. Pt is assessed to be at imminent risk of harm to herself. she is assessed to meet criteria for IP admission and is agreeable to all expectations of same. Plan RA Plan Discussed with ED MD Cardoso. Plan to seek voluntary IP psychiatric bed for transfer. Pt aware and in agreement with plan. Denies all needs at this time. TIKI Keith, VP PURCHASING
[2022-12-01 14:23] LABS: Creatine Kinase 216 U/L (30-135); Magnesium 1.7 mg/dL (1.6-2.3)
[2022-12-01] MEDS: SODIUM CHLORIDE 0.9% 1,000 ML 1000 ML IV (17:44)
[2022-12-01] MEDS: INSULIN REGULAR 100 UNIT/ML 3 ML VIAL SUBCUT (17:45)
--- NOTE | 2022-12-01 18:45 | PC.NURSE ---
Pt's home medications reviewed with pt and pt family. Pt states she is only taking her depakote and her haldol. Pt states she has not taken her metformin or her insulin in years Pt's mom states she is supposed to take her medications as directed, but if the pt states she is not taking them then that is correct.
[2022-12-01 19:28] VITALS: BP 134/86; PULSE 99; RESP 18; TEMP 36.8; O2SAT 97
== END 2022-12-01 20:21 ==
PROVIDERS: Emergency Medicine; Emergency Provider Emergency Medicine; PCP Family Medicine
DX: F31.9 Bipolar disorder, unspecified (principal); R45.851 Suicidal ideations; R07.9 Chest pain, unspecified; Z20.822 Contact with and (suspected) exposure to COVID-19
CPT/HCPCS: 36415; 80053; 80305; 80320; 81003; 81025; 82550; 82962; 83735; 84443; 85025; 87635; 93005; 93010; 96360; 96361; 96372; 99284; 99285; C9803

== ENCOUNTER 2022-12-16 19:12 | Observation (INO) | payer BC, MEDICARE, MEDICAID, SELFPAY ==
[2022-12-16] VITALS (11 sets, daily range): BP systolic 127–160; BP diastolic 74–104; PULSE 86–105; RESP 19–26; TEMP 36.5–36.8; O2SAT 96–99; BMI 35.4
--- NOTE | 2022-12-16 19:40 | ED.GENADULT ---
HPI - General Adult General Chief complaint: Toxicology Problem Stated complaint: not feeling well Time Seen by Provider: 12/16/22 19:30 Source: family Mode of arrival: Ambulatory Limitations: altered mental status History of Present Illness HPI narrative: Patient is a 27-year-old female. Known history of multiple psychiatric issues. She is here with her mother for a chief complaint of generally not feeling very well. The patient is unwilling/unable to provide any HPI. The mother states that the patient seemed to be at her normal state of health this morning when she left for work when she came home from work she was acting weird. Did not have a specific complaints although there is some concern that potentially she took 6-8 Ambien pills. As reported by nursing that she would mentioned that she took the pills last evening however there some concern that maybe she took them throughout the day today. She did tell nursing staff that she was not suicidal. Related Data Previous Rx's Medication Instructions Recorded divalproex 500 mg tablet,delayed 500 mg PO BEDTIME #30 tabs 01/27/22 release haloperidol 10 mg tablet 10 mg PO BEDTIME #30 tabs 05/20/22 Allergies Allergy/AdvReac Type Severity Reaction Status Date / Time No Known Drug Allergies Allergy Verified 12/01/22 18:36 Review of Systems Review of Systems Narrative: Very limited review of systems secondary to the patient's ability/willingness to answer questions Psychiatric Psychiatric: Reports system reviewed and no additional complaints, except as documented Patient History Medical History Asthma (1997) Bipolar disorder (2018) Bronchitis Depression (2016) PTSD (post-traumatic stress disorder) (2016) Schizophrenia (2016) Surgical History No history of previous surgery Family History Father No problems noted. Mother No problems noted. Social History household members: family Smoking Status: Current every day smoker alcohol intake: never Smoking Status: Current every day smoker tobacco type: vaping alcohol intake frequency: 0-2 drinks per day Substance Use Type: does not use Exam Initial Vital Signs Initial Vital Signs: Vital Signs Pulse Rate 105 H 12/16/22 19:31 Pulse Oximetry 98 12/16/22 19:31 HENMT Head: normal to inspection and normocephalic Resp Effort & Inspection: normal respiratory effort Auscultation: clear to auscultation bilaterally Cardio Rate: regular rate Rhythm: regular rhythm GI Inspection: normal to inspection Neuro General: patient alert, patient awake and moves all extremities Gait: normal gait Extrem Other: No gross deformities Psych Other: Patient has a flat affect. Denied suicidal ideation to nursing staff. Minimally interactive with my exam. Does not seem to be responding to internal stimuli. Denies hearing voices. Course Orders Ordered: ED Orders 12/16/22 19:45 PTT Partial Thromboplastin Rudy Stat Prothrombin Time INR Stat 12/16/22 19:50 Acetaminophen Stat Complete Blood Count AUTO DIFF Stat Comprehensive Metabolic Panel Stat Ethanol (ETOH) Stat Lipase Stat Test Serum,Qual Stat Salicylate Stat Thyroid Stimulating Hormone Stat 12/16/22 20:02 COVID19 -Nasal RAPID Stat 12/16/22 20:18 Urinalysis and Microscopic Stat Urine Drug Screen, Rapid Stat Enoxaparin Sodium (Enoxaparin 40 Mg/0.4 Ml Syringe) 40 mg SUBCUT DAILY LEWIS Naloxone HCl (Naloxone 0.4 Mg/Ml Vial) 0.2 mg IV Q2MIN PRN PRN Reason: Opiate Reversal Discontinued Medications Haloperidol (Haloperidol 5 Mg Tablet) 5 mg PO NOW ONE Stop: 12/16/22 19:43 Last Admin: 12/16/22 20:10 Dose: Not Given Documented By: BS Acetylcysteine 13.77900 g/ (Dextrose) 265.9978 mls @ 265.998 mls/hr IV NOW ONE Stop: 12/16/22 20:46 Last Admin: 12/16/22 21:25 Dose: 265.998 mls/hr Documented By: SPF Acetylcysteine 4.33947 g/ (Dextrose) 521.9993 mls @ 130.5 mls/hr IV NOW ONE Stop: 12/16/22 21:09 Acetylcysteine 8.7997 g/ (Dextrose) 1,043.9985 mls @ 65.25 mls/hr IV NOW ONE Stop: 12/16/22 21:09 Vital Signs Vital signs: Vital Signs - 8 hr 12/16/22 19:38 12/16/22 19:31 12/16/22 19:32 Temperature 98.2 F Pulse Rate 105 H 105 H Respiratory Rate 19 Blood Pressure 160/104 H 160/104 H Pulse Oximetry 99 98 Oxygen Delivery Method Room Air 12/16/22 19:32 Temperature Pulse Rate 105 H Respiratory Rate Blood Pressure Pulse Oximetry 97 Oxygen Delivery Method Medical Decision Making Medical Records Medical records reviewed: Yes I reviewed the patient's medical records. Lab Data Lab results reviewed: Yes I reviewed the patient's lab results. 12/16/22 19:50 12/16/22 19:50 Labs: Lab Results 12/16/22 12/16/22 12/16/22 Range/Units 19:45 19:50 19:50 WBC 9.4 (4.5-11.0) X10^3/uL RBC 4.95 (4.0-5.2) X10^6/uL Hgb 14.2 (12.0-16.0) g/dL Hct 41.8 (36-46) % MCV 84.5 (80-100) fL MCH 28.7 (26-34) PG MCHC 34.0 (30-36) % RDW 13.1 (11.6-14.8) % Plt Count 334 (150-400) X10^3/uL Neut % (Auto) 65.6 (50-75) % Lymph % (Auto) 24.7 L (25-40) % [place] % (Auto) 8.7 (3-14) % Eos % (Auto) 0.2 L (2-4) % Baso % (Auto) 0.8 (0-2) % Neut # (Auto) 6100 (9354-5156) /uL Lymph # (Auto) 2300 (7478-3848) /uL [place] # (Auto) 800 (0-900) /uL Eos # (Auto) 0 (0-450) /uL Baso # (Auto) 100 (0-100) /uL PT 13.2 H (10.1-12.7) SECONDS INR 1.2 (0.9-1.3) APTT 36 (26-36) SECONDS Sodium 138 (137-145) mmol/L Potassium 3.8 (3.4-5.1) mmol/L Chloride 103 (98-107) mmol/L Carbon Dioxide 24 (22-32) mmol/L BUN 11 (7-17) mg/dL Creatinine 0.53 (0.52-1.04) mg/dL Estimated GFR > 60 (>60) mL/min BUN/Creatinine Ratio 20.8 (6-22) Glucose 120 H (70-100) mg/dL Calcium 8.6 (8.4-10.2) mg/dL Total Bilirubin 0.2 (0.2-1.3) mg/dL AST 25 (14-36) IU/L ALT 29 (<35) IU/L Alkaline Phosphatase 60 (38-126) U/L Total Protein 7.6 (6.3-8.2) g/dL Albumin 3.9 (3.5-5.0) g/dL Globulin 3.7 (1.7-4.1) g/dL Albumin/Globulin Ratio 1.1 (1.0-2.8) Lipase 61 (23-300) U/L TSH (0.47-4.68) uIU/mL Serum , Qual (Negative) Urine Color Urine Appearance Urine pH (4.5-8.0) Ur Specific [place] (1.000-1.035) Urine Protein (Negative) Urine Glucose (UA) (Negative) g/dL Urine Ketones (NEGATIVE) Urine Occult Blood (Negative) Urine Nitrate (Negative) Urine Bilirubin (NEGATIVE) Urine Urobilinogen (0.2) E.U./dL Ur Leukocyte Esterase (NEGATIVE) Urine RBC (0-5/HPF) Urine WBC (0-5/HPF) Ur Squamous Epith Cells (0-5/HPF) Urine Bacteria (None) Ur Culture Indicated? Salicylates (<20) mg/dL U Opiates 300ng/mL cut (Negative) Ur Oxycodone Screen (Negative) Urine Methadone Screen (Negative) Acetaminophen 92 H* (10-30) ug/mL Ur Barbiturates Screen (Negative) U Tricyclic Antidepress (Negative) Ur Phencyclidine Scrn (Negative) Ur Amphetamines Screen (Negative) U Methamphetamines Scrn (Negative) Ur MDMA Scrn (Ecstasy) (Negative) U Benzodiazepines Scrn (Negative) Urine Cocaine Screen (Negative) U Marijuana (THC) Screen (Negative) Ethyl Alcohol < 10 ( - 10) mg/dL SARS-CoV-2 (PCR) (Negative) 12/16/22 12/16/22 12/16/22 Range/Units 19:50 19:50 19:50 WBC (4.5-11.0) X10^3/uL RBC (4.0-5.2) X10^6/uL Hgb (12.0-16.0) g/dL Hct (36-46) % MCV (80-100) fL MCH (26-34) PG MCHC (30-36) % RDW (11.6-14.8) % Plt Count (150-400) X10^3/uL Neut % (Auto) (50-75) % Lymph % (Auto) (25-40) % [place] % (Auto) (3-14) % Eos % (Auto) (2-4) % Baso % (Auto) (0-2) % Neut # (Auto) (9302-9784) /uL Lymph # (Auto) (1266-7970) /uL [place] # (Auto) (0-900) /uL Eos # (Auto) (0-450) /uL Baso # (Auto) (0-100) /uL PT (10.1-12.7) SECONDS INR (0.9-1.3) APTT (26-36) SECONDS Sodium (137-145) mmol/L Potassium (3.4-5.1) mmol/L Chloride (98-107) mmol/L Carbon Dioxide (22-32) mmol/L BUN (7-17) mg/dL Creatinine (0.52-1.04) mg/dL Estimated GFR (>60) mL/min BUN/Creatinine Ratio (6-22) Glucose (70-100) mg/dL Calcium (8.4-10.2) mg/dL Total Bilirubin (0.2-1.3) mg/dL AST (14-36) IU/L ALT (<35) IU/L Alkaline Phosphatase (38-126) U/L Total Protein (6.3-8.2) g/dL Albumin (3.5-5.0) g/dL Globulin (1.7-4.1) g/dL Albumin/Globulin Ratio (1.0-2.8) Lipase (23-300) U/L TSH 3.95 D (0.47-4.68) uIU/mL Serum , Qual Negative (Negative) Urine Color Urine Appearance Urine pH (4.5-8.0) Ur Specific [place] (1.000-1.035) Urine Protein (Negative) Urine Glucose (UA) (Negative) g/dL Urine Ketones (NEGATIVE) Urine Occult Blood (Negative) Urine Nitrate (Negative) Urine Bilirubin (NEGATIVE) Urine Urobilinogen (0.2) E.U./dL Ur Leukocyte Esterase (NEGATIVE) Urine RBC (0-5/HPF) Urine WBC (0-5/HPF) Ur Squamous Epith Cells (0-5/HPF) Urine Bacteria (None) Ur Culture Indicated? Salicylates < 1.0 (<20) mg/dL U Opiates 300ng/mL cut (Negative) Ur Oxycodone Screen (Negative) Urine Methadone Screen (Negative) Acetaminophen (10-30) ug/mL Ur Barbiturates Screen (Negative) U Tricyclic Antidepress (Negative) Ur Phencyclidine Scrn (Negative) Ur Amphetamines Screen (Negative) U Methamphetamines Scrn (Negative) Ur MDMA Scrn (Ecstasy) (Negative) U Benzodiazepines Scrn (Negative) Urine Cocaine Screen (Negative) U Marijuana (THC) Screen (Negative) Ethyl Alcohol ( - 10) mg/dL SARS-CoV-2 (PCR) (Negative) 12/16/22 12/16/22 12/16/22 Range/Units 20:02 20:18 20:18 WBC (4.5-11.0) X10^3/uL RBC (4.0-5.2) X10^6/uL Hgb (12.0-16.0) g/dL Hct (36-46) % MCV (80-100) fL MCH (26-34) PG MCHC (30-36) % RDW (11.6-14.8) % Plt Count (150-400) X10^3/uL Neut % (Auto) (50-75) % Lymph % (Auto) (25-40) % [place] % (Auto) (3-14) % Eos % (Auto) (2-4) % Baso % (Auto) (0-2) % Neut # (Auto) (1437-1497) /uL Lymph # (Auto) (2061-9854) /uL [place] # (Auto) (0-900) /uL Eos # (Auto) (0-450) /uL Baso # (Auto) (0-100) /uL PT (10.1-12.7) SECONDS INR (0.9-1.3) APTT (26-36) SECONDS Sodium (137-145) mmol/L Potassium (3.4-5.1) mmol/L Chloride (98-107) mmol/L Carbon Dioxide (22-32) mmol/L BUN (7-17) mg/dL Creatinine (0.52-1.04) mg/dL Estimated GFR (>60) mL/min BUN/Creatinine Ratio (6-22) Glucose (70-100) mg/dL Calcium (8.4-10.2) mg/dL Total Bilirubin (0.2-1.3) mg/dL AST (14-36) IU/L ALT (<35) IU/L Alkaline Phosphatase (38-126) U/L Total Protein (6.3-8.2) g/dL Albumin (3.5-5.0) g/dL Globulin (1.7-4.1) g/dL Albumin/Globulin Ratio (1.0-2.8) Lipase (23-300) U/L TSH (0.47-4.68) uIU/mL Serum , Qual (Negative) Urine Color Yellow Urine Appearance Clear Urine pH 6.5 (4.5-8.0) Ur Specific [place] 1.020 (1.000-1.035) Urine Protein Negative (Negative) Urine Glucose (UA) Negative (Negative) g/dL Urine Ketones 1+ H (NEGATIVE) Urine Occult Blood Negative (Negative) Urine Nitrate Negative (Negative) Urine Bilirubin Negative (NEGATIVE) Urine Urobilinogen 0.2 (0.2) E.U./dL Ur Leukocyte Esterase Negative (NEGATIVE) Urine RBC 0-1/hpf D (0-5/HPF) Urine WBC 1-5/hpf (0-5/HPF) Ur Squamous Epith Cells 1-5 /hpf (0-5/HPF) Urine Bacteria Occasional (0-1) (None) Ur Culture Indicated? Cult not indicated Salicylates (<20) mg/dL U Opiates 300ng/mL cut Negative (Negative) Ur Oxycodone Screen Negative (Negative) Urine Methadone Screen Negative (Negative) Acetaminophen (10-30) ug/mL Ur Barbiturates Screen Negative (Negative) U Tricyclic Antidepress Negative (Negative) Ur Phencyclidine Scrn Negative (Negative) Ur Amphetamines Screen Negative (Negative) U Methamphetamines Scrn Negative (Negative) Ur MDMA Scrn (Ecstasy) Negative (Negative) U Benzodiazepines Scrn Negative (Negative) Urine Cocaine Screen Negative (Negative) U Marijuana (THC) Screen Negative (Negative) Ethyl Alcohol ( - 10) mg/dL SARS-CoV-2 (PCR) Negative (Negative) ECG Data Attestation: I personally reviewed and interpreted this ECG as follows: Interpretation: Sinus rhythm Ventricular rate 88 Normal axis Normal QRS Normal QTC MDM Narrative Medical decision making narrative: There was some question upon arrival as to whether not the patient took her prescription for Ambien and potentially how many of these pills that she took. According to the mother who is at bedside she is acting differently now than what she was earlier today. She did agree to have blood drawn and also for an exam although she was minimally interactive with the rest of the exam. Patient did have a elevated Tylenol level. It was not explicitly had a toxic level however are unsure whether not this level is increasing or decreasing given this 1 point of data. Her LFTs are unremarkable. I did discuss the case with poison control who recommended starting on NAC. I discussed the case with Dr. Huitron hospitalist who will admit the patient for further evaluation and treatment. Discussed the need for admission with the mother who expressed understanding and agreement. Discharge Plan Departure Patient Disposition: Admitted As Inpatient Clinical Impression: Tylenol overdose Admit Date/Time: 12/16/22 21:09 Admit Provider: Keith Huitron
[2022-12-16 20:05] LABS: Add Manual Diff / Slide Review NO; Basophils Absolute Auto 100 /uL (0-100); Basophils Percent Auto 0.8 % (0-2); Eosinophils Absolute Auto 0 /uL (0-450); Eosinophils Percent Auto 0.2 % (2-4); Hematocrit 41.8 % (36-46); Hemoglobin 14.2 g/dL (12.0-16.0); Lymphocytes Absolute Auto 2300 /uL (1100-4500); Lymphocytes Percent Auto 24.7 % (25-40); Mean Corpuscular Hemoglobin 28.7 PG (26-34); Mean Corpuscular Volume 84.5 fL (80-100); Monocytes Absolute Auto 800 /uL (0-900); Monocytes Percent Auto 8.7 % (3-14); Neutrophils Absolute Auto 6100 /uL (1500-7000); Neutrophils Percent Auto 65.6 % (50-75); Platelet Count 334 X10^3/uL (150-400); Red Blood Cell Count 4.95 X10^6/uL (4.0-5.2); Red Cell Distribution Width 13.1 % (11.6-14.8); White Blood Cell Count 9.4 X10^3/uL (4.5-11.0)
[2022-12-16 20:28] LABS: COVID19 -Nasal RAPID Negative (Negative)
[2022-12-16 20:31] LABS: Alanine Aminotransferase 29 IU/L (<35); Albumin 3.9 g/dL (3.5-5.0); Albumin Globulin Ratio 1.1 (1.0-2.8); Alkaline Phosphatase 60 U/L (38-126); Aspartate Aminotransferase 25 IU/L (14-36); BUN Creatinine Ratio 20.8 (6-22); Bilirubin Total 0.2 mg/dL (0.2-1.3); Blood Urea Nitrogen 11 mg/dL (7-17); Calcium 8.6 mg/dL (8.4-10.2); Carbon Dioxide 24 mmol/L (22-32); Chloride 103 mmol/L (98-107); Estimated Glomerular Filt Rate > 60 mL/min (>60); Ethanol (ETOH) < 10 mg/dL; Globulin 3.7 g/dL (1.7-4.1); Glucose 120 mg/dL (70-100); HEMOLYSIS < 15 (0-50); Lipase 61 U/L (23-300); Potassium 3.8 mmol/L (3.4-5.1); Salicylate < 1.0 mg/dL (<20); Sodium 138 mmol/L (137-145); Total Protein 7.6 g/dL (6.3-8.2)
[2022-12-16 20:40] LABS: Acetaminophen 92 ug/mL (10-30)
[2022-12-16 20:45] LABS: INR 1.2 (0.9-1.3); Prothrombin Time 13.2 SECONDS (10.1-12.7)
[2022-12-16 20:48] LABS: PTT Partial Thromboplastin Tim 36 SECONDS (26-36)
[2022-12-16 20:50] LABS: Appearance Urine UA CLEAR; Bilirubin Urine UA NEGATIVE (NEGATIVE); Color Urine UA YELLOW; Glucose Urine UA NEGATIVE (Negative); Ketones Urine UA 1+ (NEGATIVE); Leukocyte Esterase Urine UA NEGATIVE (NEGATIVE); Nitrite Urine UA NEGATIVE (Negative); Occult Blood Urine UA NEGATIVE (Negative); Protein Urine UA NEGATIVE (Negative); UR Morphine/Opiate cutoff 300 Negative (Negative); Ur Creatinine Normal (Normal); Ur Specific Gravity Normal (Normal); Urine Amphetamines Negative (Negative); Urine Barbiturates Negative (Negative); Urine Benzodiazepines Negative (Negative); Urine Cocaine Negative (Negative); Urine MDMA Negative (Negative); Urine Methadone Negative (Negative); Urine Methamphetamines Negative (Negative); Urine Oxycodone Negative (Negative); Urine Phencyclidine Negative (Negative); Urine Tetrahydrocannabinol Negative (Negative); Urine Tricyclic Antidepressant Negative (Negative); Urine pH Normal (Normal); Urobilinogen Urine UA 0.2 E.U./dL (0.2)
[2022-12-16 20:55] LABS: pH Urine UA 6.5 (4.5-8.0)
[2022-12-16 20:56] LABS: Pregnancy Test Serum,Qual Negative (Negative)
[2022-12-16 20:59] LABS: Bacteria Urine Occasional (0-1); Culture Indicated Urine Cult Not Indicated; RBC Urine 0-1/HPF (0-5/HPF); Squamous Epithelial Cell Urine 1-5 /HPF (0-5/HPF); WBC Urine 1-5/HPF (0-5/HPF)
[2022-12-16 21:02] LABS: Thyroid Stimulating Hormone 3.95 uIU/mL (0.47-4.68)
[2022-12-16] MEDS: WATER IV ×2 (21:25→22:41)
[2022-12-16] MEDS: DEXTROSE 5% IV ×2 (21:25→22:41)
[2022-12-16] MEDS: ACETYLCYSTEINE IV ×2 (21:25→22:41)
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
--- NOTE | 2022-12-16 22:59 | PC.NURSE ---
Pt high risk on suicide risk scale. Pt maddy
--- NOTE | 2022-12-16 23:03 | PC.NURSE ---
When completed suicide risk assessment pt verbalized that she took Tylenol, ibuprofen and ambien with the plan to kill herself. She stated, I wanted to end the pain. Hospitalist at bedside was notified, 1:[address]. Pt is in paper scrubs. Underwear and cross necklace left in place for pt comfort. Coordinator made aware.
[2022-12-17] VITALS (22 sets, daily range): BP systolic 116–145; BP diastolic 66–87; PULSE 85–98; RESP 13–27; TEMP 36.6–37.2; O2SAT 96–100
[2022-12-17 00:10] LABS: MRSA (Nasal) PCR Not Detected (Not Detect)
[2022-12-17] MEDS: DEXTROSE 5% IV (03:08)
[2022-12-17] MEDS: ACETYLCYSTEINE IV (03:08)
[2022-12-17] MEDS: WATER IV (03:08)
[2022-12-17 05:05] LABS: Add Manual Diff / Slide Review NO; Basophils Absolute Auto 100 /uL (0-100); Basophils Percent Auto 0.7 % (0-2); Eosinophils Absolute Auto 0 /uL (0-450); Eosinophils Percent Auto 0.4 % (2-4); Hematocrit 38.7 % (36-46); Hemoglobin 13.3 g/dL (12.0-16.0); Lymphocytes Absolute Auto 1300 /uL (1100-4500); Mean Corpuscular HGB Conc 34.5 % (30-36); Mean Corpuscular Hemoglobin 28.8 PG (26-34); Mean Corpuscular Volume 83.5 fL (80-100); Monocytes Absolute Auto 800 /uL (0-900); Monocytes Percent Auto 10.5 % (3-14); Neutrophils Absolute Auto 5600 /uL (1500-7000); Neutrophils Percent Auto 71.4 % (50-75); Platelet Count 282 X10^3/uL (150-400); Red Blood Cell Count 4.63 X10^6/uL (4.0-5.2); Red Cell Distribution Width 13.4 % (11.6-14.8); White Blood Cell Count 7.9 X10^3/uL (4.5-11.0)
[2022-12-17 05:09] LABS: INR 1.3 (0.9-1.3); Prothrombin Time 15.5 SECONDS (10.1-12.7)
[2022-12-17 05:12] LABS: Acetaminophen < 10 ug/mL (10-30); Alanine Aminotransferase 26 IU/L (<35); Albumin 3.3 g/dL (3.5-5.0); Alkaline Phosphatase 44 U/L (38-126); Aspartate Aminotransferase 22 IU/L (14-36); Bilirubin Total 0.3 mg/dL (0.2-1.3); Blood Urea Nitrogen 7 mg/dL (7-17); Calcium 7.9 mg/dL (8.4-10.2); Carbon Dioxide 24 mmol/L (22-32); Chloride 102 mmol/L (98-107); Estimated Glomerular Filt Rate > 60 mL/min (>60); Globulin 3.2 g/dL (1.7-4.1); Glucose 159 mg/dL (70-100); HEMOLYSIS < 15 (0-50); PTT Partial Thromboplastin Tim 34 SECONDS (26-36); Potassium 3.3 mmol/L (3.4-5.1); Sodium 136 mmol/L (137-145); Total Protein 6.5 g/dL (6.3-8.2)
--- NOTE | 2022-12-17 09:20 | PM.PN.1 ---
Exam Vital Signs (past 8 hours): - 12/17/22 02:22 12/17/22 01:30 12/17/22 02:00 Temperature Pulse Rate 86 87 Respiratory Rate 23 27 H Blood Pressure Pulse Oximetry 98 97 96 Oxygen Delivery Method Room Air Oxygen Flow Rate 12/17/22 02:30 12/17/22 03:00 12/17/22 03:32 Temperature Pulse Rate 85 94 H Respiratory Rate 24 26 H Blood Pressure Pulse Oximetry 96 97 Oxygen Delivery Method Room Air Oxygen Flow Rate 12/17/22 06:00 12/17/22 08:28 12/17/22 07:00 Temperature 97.9 F 98.9 F Pulse Rate 86 91 H Respiratory Rate 24 22 Blood Pressure 135/84 Pulse Oximetry 99 97 Oxygen Delivery Method Room Air Oxygen Flow Rate 0 Oxygen Delivery Method Room Air Oxygen Flow Rate 0 Narrative Exam Narrative: GEN: no acute distress HEENT: moist mucous membranes, PERRL NECK: trachea midline, no jvd PULM: clear bilaterally, no wheezes, rhonchi, rales CV: regular rate and rhythm, no murmurs ABD: soft, nontender, nondistended, no organomegagly EXT: warm and well perfused with no edema NEURO: awake, alert, slow to verbally respond to voices, flat affect, moving all extremities Objective Labs 12/17/22 04:44 12/17/22 04:44 Labs: Laboratory Results - last 24 hr 12/16/22 12/16/22 12/16/22 19:45 19:50 19:50 WBC 9.4 RBC 4.95 Hgb 14.2 Hct 41.8 MCV 84.5 MCH 28.7 MCHC 34.0 RDW 13.1 Plt Count 334 Neut % (Auto) 65.6 Lymph % (Auto) 24.7 L [place] % (Auto) 8.7 Eos % (Auto) 0.2 L Baso % (Auto) 0.8 Neut # (Auto) 6100 Lymph # (Auto) 2300 [place] # (Auto) 800 Eos # (Auto) 0 Baso # (Auto) 100 PT 13.2 H INR 1.2 APTT 36 Sodium 138 Potassium 3.8 Chloride 103 Carbon Dioxide 24 BUN 11 Creatinine 0.53 Estimated GFR > 60 BUN/Creatinine Ratio 20.8 Glucose 120 H Calcium 8.6 Total Bilirubin 0.2 AST 25 ALT 29 Alkaline Phosphatase 60 Total Protein 7.6 Albumin 3.9 Globulin 3.7 Albumin/Globulin Ratio 1.1 Lipase 61 TSH Serum , Qual Urine Color Urine Appearance Urine pH Ur Specific [place] Urine Protein Urine Glucose (UA) Urine Ketones Urine Occult Blood Urine Nitrate Urine Bilirubin Urine Urobilinogen Ur Leukocyte Esterase Urine RBC Urine WBC Ur Squamous Epith Cells Urine Bacteria Ur Culture Indicated? Nasal Screen MRSA (PCR) Salicylates U Opiates 300ng/mL cut Ur Oxycodone Screen Urine Methadone Screen Acetaminophen 92 H* Ur Barbiturates Screen U Tricyclic Antidepress Ur Phencyclidine Scrn Ur Amphetamines Screen U Methamphetamines Scrn Ur MDMA Scrn (Ecstasy) U Benzodiazepines Scrn Urine Cocaine Screen U Marijuana (THC) Screen Ethyl Alcohol < 10 SARS-CoV-2 (PCR) 12/16/22 12/16/22 12/16/22 19:50 19:50 19:50 WBC RBC Hgb Hct MCV MCH MCHC RDW Plt Count Neut % (Auto) Lymph % (Auto) [place] % (Auto) Eos % (Auto) Baso % (Auto) Neut # (Auto) Lymph # (Auto) [place] # (Auto) Eos # (Auto) Baso # (Auto) PT INR APTT Sodium Potassium Chloride Carbon Dioxide BUN Creatinine Estimated GFR BUN/Creatinine Ratio Glucose Calcium Total Bilirubin AST ALT Alkaline Phosphatase Total Protein Albumin Globulin Albumin/Globulin Ratio Lipase TSH 3.95 D Serum , Qual Negative Urine Color Urine Appearance Urine pH Ur Specific [place] Urine Protein Urine Glucose (UA) Urine Ketones Urine Occult Blood Urine Nitrate Urine Bilirubin Urine Urobilinogen Ur Leukocyte Esterase Urine RBC Urine WBC Ur Squamous Epith Cells Urine Bacteria Ur Culture Indicated? Nasal Screen MRSA (PCR) Salicylates < 1.0 U Opiates 300ng/mL cut Ur Oxycodone Screen Urine Methadone Screen Acetaminophen Ur Barbiturates Screen U Tricyclic Antidepress Ur Phencyclidine Scrn Ur Amphetamines Screen U Methamphetamines Scrn Ur MDMA Scrn (Ecstasy) U Benzodiazepines Scrn Urine Cocaine Screen U Marijuana (THC) Screen Ethyl Alcohol SARS-CoV-2 (PCR) 12/16/22 12/16/22 12/16/22 20:02 20:18 20:18 WBC RBC Hgb Hct MCV MCH MCHC RDW Plt Count Neut % (Auto) Lymph % (Auto) [place] % (Auto) Eos % (Auto) Baso % (Auto) Neut # (Auto) Lymph # (Auto) [place] # (Auto) Eos # (Auto) Baso # (Auto) PT INR APTT Sodium Potassium Chloride Carbon Dioxide BUN Creatinine Estimated GFR BUN/Creatinine Ratio Glucose Calcium Total Bilirubin AST ALT Alkaline Phosphatase Total Protein Albumin Globulin Albumin/Globulin Ratio Lipase TSH Serum , Qual Urine Color Yellow Urine Appearance Clear Urine pH 6.5 Ur Specific [place] 1.020 Urine Protein Negative Urine Glucose (UA) Negative Urine Ketones 1+ H Urine Occult Blood Negative Urine Nitrate Negative Urine Bilirubin Negative Urine Urobilinogen 0.2 Ur Leukocyte Esterase Negative Urine RBC 0-1/hpf D Urine WBC 1-5/hpf Ur Squamous Epith Cells 1-5 /hpf Urine Bacteria Occasional (0-1) Ur Culture Indicated? Cult not indicated Nasal Screen MRSA (PCR) Salicylates U Opiates 300ng/mL cut Negative Ur Oxycodone Screen Negative Urine Methadone Screen Negative Acetaminophen Ur Barbiturates Screen Negative U Tricyclic Antidepress Negative Ur Phencyclidine Scrn Negative Ur Amphetamines Screen Negative U Methamphetamines Scrn Negative Ur MDMA Scrn (Ecstasy) Negative U Benzodiazepines Scrn Negative Urine Cocaine Screen Negative U Marijuana (THC) Screen Negative Ethyl Alcohol SARS-CoV-2 (PCR) Negative 12/16/22 12/17/22 12/17/22 20:25 04:44 04:44 WBC 7.9 RBC 4.63 Hgb 13.3 Hct 38.7 MCV 83.5 MCH 28.8 MCHC 34.5 RDW 13.4 Plt Count 282 Neut % (Auto) 71.4 Lymph % (Auto) 17.0 L [place] % (Auto) 10.5 Eos % (Auto) 0.4 L Baso % (Auto) 0.7 Neut # (Auto) 5600 Lymph # (Auto) 1300 [place] # (Auto) 800 Eos # (Auto) 0 Baso # (Auto) 100 PT 15.5 H INR 1.3 APTT 34 Sodium Potassium Chloride Carbon Dioxide BUN Creatinine Estimated GFR BUN/Creatinine Ratio Glucose Calcium Total Bilirubin AST ALT Alkaline Phosphatase Total Protein Albumin Globulin Albumin/Globulin Ratio Lipase TSH Serum , Qual Urine Color Urine Appearance Urine pH Ur Specific [place] Urine Protein Urine Glucose (UA) Urine Ketones Urine Occult Blood Urine Nitrate Urine Bilirubin Urine Urobilinogen Ur Leukocyte Esterase Urine RBC Urine WBC Ur Squamous Epith Cells Urine Bacteria Ur Culture Indicated? Nasal Screen MRSA (PCR) Not detected Salicylates U Opiates 300ng/mL cut Ur Oxycodone Screen Urine Methadone Screen Acetaminophen Ur Barbiturates Screen U Tricyclic Antidepress Ur Phencyclidine Scrn Ur Amphetamines Screen U Methamphetamines Scrn Ur MDMA Scrn (Ecstasy) U Benzodiazepines Scrn Urine Cocaine Screen U Marijuana (THC) Screen Ethyl Alcohol SARS-CoV-2 (PCR) 12/17/22 04:44 WBC RBC Hgb Hct MCV MCH MCHC RDW Plt Count Neut % (Auto) Lymph % (Auto) [place] % (Auto) Eos % (Auto) Baso % (Auto) Neut # (Auto) Lymph # (Auto) [place] # (Auto) Eos # (Auto) Baso # (Auto) PT INR APTT Sodium 136 L Potassium 3.3 L Chloride 102 Carbon Dioxide 24 BUN 7 Creatinine 0.35 L Estimated GFR > 60 BUN/Creatinine Ratio 20.0 Glucose 159 H Calcium 7.9 L Total Bilirubin 0.3 AST 22 ALT 26 Alkaline Phosphatase 44 Total Protein 6.5 Albumin 3.3 L Globulin 3.2 Albumin/Globulin Ratio 1.0 Lipase TSH Serum , Qual Urine Color Urine Appearance Urine pH Ur Specific [place] Urine Protein Urine Glucose (UA) Urine Ketones Urine Occult Blood Urine Nitrate Urine Bilirubin Urine Urobilinogen Ur Leukocyte Esterase Urine RBC Urine WBC Ur Squamous Epith Cells Urine Bacteria Ur Culture Indicated? Nasal Screen MRSA (PCR) Salicylates U Opiates 300ng/mL cut Ur Oxycodone Screen Urine Methadone Screen Acetaminophen < 10 Ur Barbiturates Screen U Tricyclic Antidepress Ur Phencyclidine Scrn Ur Amphetamines Screen U Methamphetamines Scrn Ur MDMA Scrn (Ecstasy) U Benzodiazepines Scrn Urine Cocaine Screen U Marijuana (THC) Screen Ethyl Alcohol SARS-CoV-2 (PCR) [facility] Medical History Asthma (1997) Bipolar disorder (2018) Bronchitis Depression (2016) PTSD (post-traumatic stress disorder) (2016) Schizophrenia (2016) Surgical History No history of previous surgery Family History Father No problems noted. Mother No problems noted. Social History household members: family Smoking Status: Current every day smoker alcohol intake: never Assessment & Plan Assessment & Plan narrative: 1. Tylenol overdose -patient admits to intentional suicidal overdose -says she took tylenol, ibuprofen, ambien -initial tylenol level 92 -initially asymptomatic on admission -lfts, inr, creatinine normal on admission -started NAC 20hr protocol in ED -monitor for anaphylactoid symptoms in ICU -check creatinine, lfts, inr, tylenol level at 1700 and if normal can stop NAC per poison control -will need psychiatric eval once medically cleared 2. Depression and bipoloar vs schizoaffective disorder -hold home medications tonight as unclear which other substances patient took 3. Type 2 DM on insulin -hold oral meds -insulin sliding scale I have discussed plan of care with patient. History was obtained from information from patient and also from family and other medical staff. I have discussed plan of care with ED physician and bedside nurse. I have reviewed labs. CODE: Full Proxy: Albina Guaman, mother Quality VTE Deep Vein Thrombosis/Pulmonary Embolism Present on Admission: No
[2022-12-17] MEDS: POTASSIUM CHLORIDE 20 MEQ TAB 40 MEQ PO (10:00)
[2022-12-17] MEDS: MAGNESIUM OXIDE 400 MG TABLET PO (10:46)
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
--- NOTE | 2022-12-17 13:46 | CM.IDA ---
Initial DCP Assessment Note Patient is 27 y/o female who presents to after intentional overdose of ibuprofen, tylenol and ambien. Patient has hx of Schizoaffective Disorder-Bipolar type, Depression and PTSD. Patient endorses hx of Paranoia and hallucinations. Patient's PCP is Dr. Meyers, Patient has [facility] MCR and [employer] out of [place] [employer] insurance. ELECTRONIC TRAIN CONTROL TECHNICIAN enters room to meet with patient and conducts full ELECTRONIC TRAIN CONTROL TECHNICIAN assessment, see assessment in other note. Patient presents as A/Ox4, with slightly flat and euthymic affect. Patient endorses independence with ADLs but states last year she battled depression and her mother had to remind her to do ADLs. Patient endorses she can drive, but does not drive due to suspended license and patient relies on family for transportation. Patient endorses she resides with family in [place]. Patient endorses local family members as supports. Patient has upcoming Psychiatry appt with Dr. Drummond at [facility] for 01/13/23. Patient has not been established with Psychiatry since 05/2022 with previous psychiatrist. Patient had recent inpatient hospitalization on 12/01/22 at [facility] due to concern for Auditory hallucinations and SI. Pyschiatry consult has been placed to evaluate patient, at this time patient endorses preference to d/c to home. Patient endorses willingness to meet with Dr. Drummond and follow recommendations. Plan: Pending Psychiatry consult. inpatient hospitalization vs. Safety plan home with outpatient f/u. AMY Abreu Discharge Planning/Care Management CM Discharge Assessment Start: 12/17/22 12:59 Freq: Status: Active Protocol: Document 12/17/22 13:44 LN (Rec: 12/17/22 13:46 LN [id number]) Discharge Planning Assessment Assigned Costume Maker AMY Lira Advance Directives? No History Provided By Patient,Medical Record Has Patient been admitted in last 30 No days? Prior Living Arrangements House Household Members family Type of transporation used prior to Relies on Others admit Comment Patient endorses that she can drive but her license is suspended and patient relies on others for transportation Independent with ADL's Yes Is patient alert and oriented? Yes Comment Safety plan home vs. inpatient hospitalization Please Provide Date Initial DC 12/17/22
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
[2022-12-17 17:30] LABS: INR 1.3 (0.9-1.3); Prothrombin Time 14.6 SECONDS (10.1-12.7)
[2022-12-17 17:34] LABS: Acetaminophen < 10 ug/mL (10-30); Alanine Aminotransferase 34 IU/L (<35); Albumin 3.7 g/dL (3.5-5.0); Albumin Globulin Ratio 1.1 (1.0-2.8); Alkaline Phosphatase 52 U/L (38-126); Aspartate Aminotransferase 27 IU/L (14-36); BUN Creatinine Ratio 17.5 (6-22); Bilirubin Total 0.1 mg/dL (0.2-1.3); Blood Urea Nitrogen 7 mg/dL (7-17); Carbon Dioxide 26 mmol/L (22-32); Chloride 102 mmol/L (98-107); Estimated Glomerular Filt Rate > 60 mL/min (>60); Globulin 3.5 g/dL (1.7-4.1); Glucose 261 mg/dL (70-100); HEMOLYSIS < 15 (0-50); Potassium 4.3 mmol/L (3.4-5.1); Sodium 135 mmol/L (137-145); Total Protein 7.2 g/dL (6.3-8.2)
--- NOTE | 2022-12-17 18:21 | P.DS_ITS ---
History of Present Illness History of Present Illness Date Patient Seen: 12/17/22 Time Patient Seen: 10:00 Chief complaint: admitted for suicidal ideation Narrative: Ms. Puga is a 27W with H schizoaffective disorder vs bipolar disorder, depression who presents today with altered behavior. The patient has provided little history to me. She did state to the bedside RN that she intentionally took ambien, ibuprofen, and tylenol at 12pm today in a suicidal attempt in order to harm herself. She does affirm this to me when asked, she is unable to state how many pills she took. She does not respond when asked if still suicidal. She is quite flat in affect and only intermittently answers questions when asked. She denies any pain currently and no nausea. She visited the ED on 11/30/22 with psychiatric concerns including depression and suicidality and was voluntarily transferred to a psychiatric hospital and she has since been released. In the ED workup was done, vitals notable for afebrile, tachycardic in the 100s, blood pressure 160s/100s. O2 sats in 90s on room air. Labs notable for WBC 9.4, hgb 14.2, plts 334. creatinine 0.53. INR 1.2. AST/ALT . Tylenol level 92 at 19:50. Poison control was called and recommended NAC which was started in ED. She was admitted for further treatment. Discharge Providers Provider Date of admission: 12/16/22 21:09 Discharge Date: 12/17/22 Primary care physician: Mariah Meyers MD Consults: 12/17/22 09:21 Consult to [facility] [place] - Family Counselor Routine Comment: suicide attempt 12/17/22 14:23 Consult to Physician Routine Comment: Consulting Provider: Lance Drummond Reason for consultation: intentional OD Discharge provider: Nigel Antonio DO Summary Hospital Course Discharge Diagnosis: 1. Tylenol overdose, resolved -patient admits to intentional suicidal overdose -says she took tylenol, ibuprofen, ambien -initial tylenol level 92, <10 on recheck x2 -initially asymptomatic on admission -lfts, inr, creatinine normal on admission -started NAC 20hr protocol in ED -monitor for anaphylactoid symptoms in ICU -creatinine, lfts, inr, tylenol levels on recheck were normal so NAC stopped per poison control's direction -cleared by Dr. Hammer psych as not suicidal but impulsive, can return home and he will see her in clinic soon 2. Depression and bipoloar vs schizoaffective disorder -hold home medications tonight as unclear which other substances patient took -restarted on discharge 3. Type 2 DM on insulin -hold oral meds -insulin sliding scale CODE: Full Proxy: Albina Guaman, mother Hospital Course: Admitted for intentional OD on tylenol, ambien and ibuprofen. Tylenol level was 92 in ED so started on NAC protocol per poison control. LFT's, INR were normal and remained normal. Recheck of tylenol was <10 twice so able to stop NAC. Psych evaluated her and cleared her to return home as she was deemed not suicidal but impulsively took extra meds after a fight with her mother. He will see her in clinic next month to adjust her psych meds as needed. Time Spent with Patient Time spent: Greater than 30 minutes Exam Vital Signs (past 8 hours): - 12/17/22 14:00 12/17/22 16:00 12/17/22 18:00 Temperature 98.3 F Pulse Rate 90 Respiratory Rate 20 Blood Pressure 116/66 Pulse Oximetry 100 97 99 Oxygen Delivery Method Room Air Room Air Oxygen Flow Rate 0 Oxygen Delivery Method Room Air Oxygen Flow Rate 0 Narrative Exam Narrative: MENTAL STATUS EXAM * Appearance: Short-statured overweight [place] female seen in her hospital room and dressed in hospital attire. She appears her stated age. * Grooming: Neatly dressed and adequately groomed * Behavior: Calm and cooperative with the evaluation * Eye contact: Fair eye contact. * Gait: Normal * Speech: Normal rate, volume, and martir * Mood: ?I am okay.? * Affect: Pleasant, smiling, generally euthymic Congruent with content, normal r renetta and reactivity * Thought Process: Linear, logical, and goal-directed for the most part, with some occasional circumstantiality. * Thought Content: Denies suicidal ideation, denies homicidal ideation, intent or plan; and there was no evidence of a formal thought or perceptual disturbance. * Attention: Attentive to interview * Orientation: Oriented to person, place, time, and circumstance * Memory: Intact for interview, not formally tested * Insight: Fair * Judgment: Fair Objective Labs 12/17/22 04:44 12/17/22 17:05 Labs: Laboratory Results - last 24 hr 12/16/22 12/16/22 12/16/22 19:45 19:50 19:50 WBC 9.4 RBC 4.95 Hgb 14.2 Hct 41.8 MCV 84.5 MCH 28.7 MCHC 34.0 RDW 13.1 Plt Count 334 Neut % (Auto) 65.6 Lymph % (Auto) 24.7 L [place] % (Auto) 8.7 Eos % (Auto) 0.2 L Baso % (Auto) 0.8 Neut # (Auto) 6100 Lymph # (Auto) 2300 [place] # (Auto) 800 Eos # (Auto) 0 Baso # (Auto) 100 PT 13.2 H INR 1.2 APTT 36 Sodium 138 Potassium 3.8 Chloride 103 Carbon Dioxide 24 BUN 11 Creatinine 0.53 Estimated GFR > 60 BUN/Creatinine Ratio 20.8 Glucose 120 H Calcium 8.6 Total Bilirubin 0.2 AST 25 ALT 29 Alkaline Phosphatase 60 Total Protein 7.6 Albumin 3.9 Globulin 3.7 Albumin/Globulin Ratio 1.1 Lipase 61 TSH Serum , Qual Urine Color Urine Appearance Urine pH Ur Specific [place] Urine Protein Urine Glucose (UA) Urine Ketones Urine Occult Blood Urine Nitrate Urine Bilirubin Urine Urobilinogen Ur Leukocyte Esterase Urine RBC Urine WBC Ur Squamous Epith Cells Urine Bacteria Ur Culture Indicated? Nasal Screen MRSA (PCR) Salicylates U Opiates 300ng/mL cut Ur Oxycodone Screen Urine Methadone Screen Acetaminophen 92 H* Ur Barbiturates Screen U Tricyclic Antidepress Ur Phencyclidine Scrn Ur Amphetamines Screen U Methamphetamines Scrn Ur MDMA Scrn (Ecstasy) U Benzodiazepines Scrn Urine Cocaine Screen U Marijuana (THC) Screen Ethyl Alcohol < 10 SARS-CoV-2 (PCR) 12/16/22 12/16/22 12/16/22 19:50 19:50 19:50 WBC RBC Hgb Hct MCV MCH MCHC RDW Plt Count Neut % (Auto) Lymph % (Auto) [place] % (Auto) Eos % (Auto) Baso % (Auto) Neut # (Auto) Lymph # (Auto) [place] # (Auto) Eos # (Auto) Baso # (Auto) PT INR APTT Sodium Potassium Chloride Carbon Dioxide BUN Creatinine Estimated GFR BUN/Creatinine Ratio Glucose Calcium Total Bilirubin AST ALT Alkaline Phosphatase Total Protein Albumin Globulin Albumin/Globulin Ratio Lipase TSH 3.95 D Serum , Qual Negative Urine Color Urine Appearance Urine pH Ur Specific [place] Urine Protein Urine Glucose (UA) Urine Ketones Urine Occult Blood Urine Nitrate Urine Bilirubin Urine Urobilinogen Ur Leukocyte Esterase Urine RBC Urine WBC Ur Squamous Epith Cells Urine Bacteria Ur Culture Indicated? Nasal Screen MRSA (PCR) Salicylates < 1.0 U Opiates 300ng/mL cut Ur Oxycodone Screen Urine Methadone Screen Acetaminophen Ur Barbiturates Screen U Tricyclic Antidepress Ur Phencyclidine Scrn Ur Amphetamines Screen U Methamphetamines Scrn Ur MDMA Scrn (Ecstasy) U Benzodiazepines Scrn Urine Cocaine Screen U Marijuana (THC) Screen Ethyl Alcohol SARS-CoV-2 (PCR) 12/16/22 12/16/22 12/16/22 20:02 20:18 20:18 WBC RBC Hgb Hct MCV MCH MCHC RDW Plt Count Neut % (Auto) Lymph % (Auto) [place] % (Auto) Eos % (Auto) Baso % (Auto) Neut # (Auto) Lymph # (Auto) [place] # (Auto) Eos # (Auto) Baso # (Auto) PT INR APTT Sodium Potassium Chloride Carbon Dioxide BUN Creatinine Estimated GFR BUN/Creatinine Ratio Glucose Calcium Total Bilirubin AST ALT Alkaline Phosphatase Total Protein Albumin Globulin Albumin/Globulin Ratio Lipase TSH Serum , Qual Urine Color Yellow Urine Appearance Clear Urine pH 6.5 Ur Specific [place] 1.020 Urine Protein Negative Urine Glucose (UA) Negative Urine Ketones 1+ H Urine Occult Blood Negative Urine Nitrate Negative Urine Bilirubin Negative Urine Urobilinogen 0.2 Ur Leukocyte Esterase Negative Urine RBC 0-1/hpf D Urine WBC 1-5/hpf Ur Squamous Epith Cells 1-5 /hpf Urine Bacteria Occasional (0-1) Ur Culture Indicated? Cult not indicated Nasal Screen MRSA (PCR) Salicylates U Opiates 300ng/mL cut Negative Ur Oxycodone Screen Negative Urine Methadone Screen Negative Acetaminophen Ur Barbiturates Screen Negative U Tricyclic Antidepress Negative Ur Phencyclidine Scrn Negative Ur Amphetamines Screen Negative U Methamphetamines Scrn Negative Ur MDMA Scrn (Ecstasy) Negative U Benzodiazepines Scrn Negative Urine Cocaine Screen Negative U Marijuana (THC) Screen Negative Ethyl Alcohol SARS-CoV-2 (PCR) Negative 12/16/22 12/17/22 12/17/22 20:25 04:44 04:44 WBC 7.9 RBC 4.63 Hgb 13.3 Hct 38.7 MCV 83.5 MCH 28.8 MCHC 34.5 RDW 13.4 Plt Count 282 Neut % (Auto) 71.4 Lymph % (Auto) 17.0 L [place] % (Auto) 10.5 Eos % (Auto) 0.4 L Baso % (Auto) 0.7 Neut # (Auto) 5600 Lymph # (Auto) 1300 [place] # (Auto) 800 Eos # (Auto) 0 Baso # (Auto) 100 PT 15.5 H INR 1.3 APTT 34 Sodium Potassium Chloride Carbon Dioxide BUN Creatinine Estimated GFR BUN/Creatinine Ratio Glucose Calcium Total Bilirubin AST ALT Alkaline Phosphatase Total Protein Albumin Globulin Albumin/Globulin Ratio Lipase TSH Serum , Qual Urine Color Urine Appearance Urine pH Ur Specific [place] Urine Protein Urine Glucose (UA) Urine Ketones Urine Occult Blood Urine Nitrate Urine Bilirubin Urine Urobilinogen Ur Leukocyte Esterase Urine RBC Urine WBC Ur Squamous Epith Cells Urine Bacteria Ur Culture Indicated? Nasal Screen MRSA (PCR) Not detected Salicylates U Opiates 300ng/mL cut Ur Oxycodone Screen Urine Methadone Screen Acetaminophen Ur Barbiturates Screen U Tricyclic Antidepress Ur Phencyclidine Scrn Ur Amphetamines Screen U Methamphetamines Scrn Ur MDMA Scrn (Ecstasy) U Benzodiazepines Scrn Urine Cocaine Screen U Marijuana (THC) Screen Ethyl Alcohol SARS-CoV-2 (PCR) 12/17/22 12/17/22 12/17/22 04:44 17:05 17:05 WBC RBC Hgb Hct MCV MCH MCHC RDW Plt Count Neut % (Auto) Lymph % (Auto) [place] % (Auto) Eos % (Auto) Baso % (Auto) Neut # (Auto) Lymph # (Auto) [place] # (Auto) Eos # (Auto) Baso # (Auto) PT 14.6 H INR 1.3 APTT Sodium 136 L 135 L Potassium 3.3 L 4.3 Chloride 102 102 Carbon Dioxide 24 26 BUN 7 7 Creatinine 0.35 L 0.40 L Estimated GFR > 60 > 60 BUN/Creatinine Ratio 20.0 17.5 Glucose 159 H 261 H D Calcium 7.9 L 9.0 Total Bilirubin 0.3 0.1 L AST 22 27 ALT 26 34 Alkaline Phosphatase 44 52 Total Protein 6.5 7.2 Albumin 3.3 L 3.7 Globulin 3.2 3.5 Albumin/Globulin Ratio 1.0 1.1 Lipase TSH Serum , Qual Urine Color Urine Appearance Urine pH Ur Specific [place] Urine Protein Urine Glucose (UA) Urine Ketones Urine Occult Blood Urine Nitrate Urine Bilirubin Urine Urobilinogen Ur Leukocyte Esterase Urine RBC Urine WBC Ur Squamous Epith Cells Urine Bacteria Ur Culture Indicated? Nasal Screen MRSA (PCR) Salicylates U Opiates 300ng/mL cut Ur Oxycodone Screen Urine Methadone Screen Acetaminophen < 10 < 10 Ur Barbiturates Screen U Tricyclic Antidepress Ur Phencyclidine Scrn Ur Amphetamines Screen U Methamphetamines Scrn Ur MDMA Scrn (Ecstasy) U Benzodiazepines Scrn Urine Cocaine Screen U Marijuana (THC) Screen Ethyl Alcohol SARS-CoV-2 (PCR) [facility] Medical History Asthma (1996) Bipolar disorder (2017) Bronchitis Depression (2015) PTSD (post-traumatic stress disorder) (2016) Schizophrenia (2016) Surgical History No history of previous surgery Family History Father No problems noted. Mother No problems noted. Social History household members: family Smoking Status: Current every day smoker alcohol intake: never Discharge Plan Discharge Plan Patient Disposition: Home Provider Discharge Comment: You were admitted for taking too much tylenol and having a high level which can cause liver damage. Thankfully your liver enzymes returned to normal with treatment and you were cleared by poison control and Dr. Drummond psych to return home. You will see Dr. Drummond in clinic next month to review your meds and adjust as needed. Discharge orders & Medications Prescriptions: Continued divalproex 500 mg tablet,delayed release (DR/EC) 500 mg PO BEDTIME Qty: 30 5RF metformin 500 mg tablet PO BIDWMEAL Rx Instructions: 1 tablet by mouth twice daily with meals divalproex 250 mg tablet,delayed release (DR/EC) See Rx Instructions .ROUTE .COMPLEX Rx Instructions: take 3 tablets by mouth in the morning and at bedtime glipizide 5 mg tablet extended release 24hr PO QACBREAK zolpidem 5 mg tablet PRN (Reason: Insomnia) haloperidol 10 mg tablet 10 mg PO SEEINSTR Rx Instructions: Replaces injection. 1/2 tablet by mouth once daily in the morning, 1 tab twice daily at 3pm and at bedtime. Follow up/Referrals: Mariah Meyers MD [Primary Care Provider] - Visit Report/Discharge Packet Stand Alone Forms: Patient Portal/API, Stroke Signs & Symptoms Discharge Data Primary Care Provider: Mariah Meyers Discharges patient from system. Discharge Date/Time: 12/17/22 18:51 Quality VTE Deep Vein Thrombosis/Pulmonary Embolism Present on Admission: No
== END 2022-12-17 18:51 | disposition home or self-care (01) | DRG 918 ==
LOC: ED 21:09 → AC 21:34 → ICU 12-17 09:34 → AC 12-22 09:27 → ICU 12-22 09:27
PROVIDERS: Student in an Organized Health Care Education/Training Program; Admitting Provider Internal Medicine; Emergency Provider Emergency Medicine; PCP Family Medicine; Referring Provider Emergency Medicine; Visit Provider Internal Medicine
DX: T39.1X2A Poisoning by 4-Aminophenol derivatives, intentional self-harm, initial encounter (principal); F25.0 Schizoaffective disorder, bipolar type; F17.290 Nicotine dependence, other tobacco product, uncomplicated; E11.9 Type 2 diabetes mellitus without complications; F32.A Depression, unspecified; Z79.4 Long term (current) use of insulin; Z20.822 Contact with and (suspected) exposure to COVID-19
CPT/HCPCS: 36415; 80053; 80305; 80320; 80329; 81001; 82962; 83690; 84443; 84703; 85025; 85610; 85730; 87635; 87797; 90792; 93005; 96365; 99284; C9803; G0378; G0480; J0132

== ENCOUNTER 2023-01-04 00:37 | Emergency (ER) | payer BC, MEDICARE, MEDICAID, SELFPAY ==
[2022-12-16 22:22] VITALS: BMI 35.4
[2023-01-04] VITALS (30 sets, daily range): BP systolic 102–135; BP diastolic 58–80; PULSE 73–101; RESP 12–27; TEMP 36.5; O2SAT 93–99; BMI 35.2
--- NOTE | 2023-01-04 01:20 | ED.PSYCH ---
HPI - Psych <Ella Pacheco, DO - Last Filed: 01/08/23 07:26> General Chief Complaint: Psychiatric Symptoms Stated Complaint: tried to overdose/mental issues Time Seen by Provider: 01/04/23 00:52 Source: family Mode of arrival: Ambulatory History of Present Illness HPI Narrative: This is a 27-year-old female with history of bipolar versus schizoaffective disorder, depression and insulin-dependent diabetes, PCOS. Patient was discharged from [facility] inpatient psychiatry Thursday the 02 of January after being hospitalized for several days. Patient had been seen in our department on December 16 had a Tylenol overdose and was admitted. Patient is quite flat, she is not very forthcoming with history. She tells me that her underwear are burgundy, and that she feels flushed. She presents with her mother and sister. They states she started acting different at about noon they indicate that she seems to be acting like when she is having psychiatric issues. They state that she did try to take extra medication mom has been in control of the medication and had given her evening meds at 10:00 p.m.. Patient told her that she wanted to kill herself and was trying to take extra medication overdose. Mom states she was willing to come to the emergency department tonight which is atypical she usually will not. Patient has not had any fevers, not complaining of headaches, no chest pain or shortness of breath, no vomiting diarrhea or other changes appreciated at home. Patient does not answer ros questions for myself. She states the patient does not have any known drug allergies. She does vape nicotine which patient states she does. No regular alcohol noted. Sister states she does sometimes use THC. No known recreational substances otherwise. Patient does not answer this question when asked. Related Data Home Medications Medication Instructions Recorded Confirmed divalproex 250 mg tablet,delayed 500 mg PO BID 12/17/22 01/04/23 release glipizide 5 mg tablet, extended 5 mg PO QACBREAK 12/17/22 01/04/23 release 24 hr haloperidol 10 mg tablet 10 mg PO DAILY 12/17/22 01/04/23 metformin 500 mg tablet 500 mg PO BIDWMEAL 12/17/22 01/04/23 duloxetine 30 mg capsule,delayed 30 mg PO BID 01/04/23 01/04/23 release hydroxyzine pamoate 50 mg capsule 50 mg PO Q4HR PRN Anxiety 01/04/23 01/04/23 insulin glargine 100 unit/mL 25 unit SUBCUT BID 01/04/23 01/04/23 subcutaneous solution (Lantus U-100 Insulin) trazodone 50 mg tablet 50 mg PO BEDTIME PRN Insomnia 01/04/23 01/04/23 Allergies Allergy/AdvReac Type Severity Reaction Status Date / Time No Known Drug Allergies Allergy Verified 12/01/22 18:36 Review of Systems <Ella Pacheco DO - Last Filed: 01/08/23 07:26> Review of Systems ROS Unobtainable: All systems reviewed & are unremarkable except as noted in HPI and below Patient History <Ella Pacheco DO - Last Filed: 01/08/23 07:26> Medical History Asthma (1996) Bipolar disorder (2017) Bronchitis Depression (2015) PTSD (post-traumatic stress disorder) (2015) Schizophrenia (2015) Surgical History No history of previous surgery Family History Father No problems noted. Mother No problems noted. Social History household members: family Smoking Status: Current every day smoker alcohol intake: never Smoking Status: Current every day smoker tobacco type: vaping alcohol intake frequency: 0-2 drinks per day Substance Use Type: does not use Exam <Ella Pacheco DO - Last Filed: 01/08/23 07:26> Narrative Exam Narrative: GEN: Well-nourished female, alert and oriented, patient appears to be in moderate distress. Patient answers 1 or 2 questions but does not answer majority of questions. HEENT: Atraumatic, pupils are equal round reactive to light, extraocular movements are intact, nares are clear, TMs are clear with no fluid, there is no conjunctival pallor. Throat is clear without any exudates, erythema, tonsillar enlargement or uvular deviation HEART: Regular rate and rhythm without murmur, clicks, rubs. No JVD. LUNGS:Lungs clear to auscultation, no wheezes, rales, crackles, chest moves symmetrically ABD:bowel sounds normal, soft, non-tender, no guarding, rebound, rigidity, no masses noted, no hepatosplenomegaly :No CVA tenderness MSCL: Non-tender, no muscle atrophy, muscles strength 5/5 upper and lower extremities, full range of motion, normal gait NEURO:CN 2-12 intact, sensation normal, no nystagmus. SKIN: No rash, erythema or other skin changes PSYCH: Patient has very flat affect, she does not answer questions about thoughts of harming herself or other, patient does not appear to have good judgment or insight currently. She does follow commands but has to be redirected frequently. Initial Vital Signs Initial Vital Signs: Vital Signs Temperature 97.7 F 01/04/23 00:59 Pulse Rate 95 H 01/04/23 00:59 Respiratory Rate 17 01/04/23 00:59 Blood Pressure 135/76 01/04/23 00:59 Pulse Oximetry 98 01/04/23 00:59 Oxygen Delivery Method Room Air 01/04/23 00:59 <Kings Cardoso, DO - Last Filed: 01/04/23 12:37> Initial Vital Signs Initial Vital Signs: Vital Signs Temperature 97.7 F 01/04/23 00:59 Pulse Rate 95 H 01/04/23 00:59 Respiratory Rate 17 01/04/23 00:59 Blood Pressure 135/76 01/04/23 00:59 Pulse Oximetry 98 01/04/23 00:59 Oxygen Delivery Method Room Air 01/04/23 00:59 Course <Ella Pacheco, DO - Last Filed: 01/08/23 07:26> Orders Ordered: Discontinued Medications Divalproex Sodium (Divalproex Dr 250 Mg Tablet) 500 mg PO BID [facility] Last Admin: 01/04/23 08:19 Dose: 500 mg Documented By: RLS Duloxetine HCl (Duloxetine 30 Mg Capsule) 30 mg PO BID [facility] Last Admin: 01/04/23 08:20 Dose: 30 mg Documented By: RLS Glipizide (Glipizide 5 Mg Tablet) 5 mg PO QACBREAK [facility] Last Admin: 01/04/23 08:24 Dose: Not Given Documented By: RLS Haloperidol (Haloperidol 5 Mg Tablet) 10 mg PO DAILY [facility] Last Admin: 01/04/23 08:20 Dose: 10 mg Documented By: LORENA Insulin Glargine (Insulin Glargine 100 Unit/Ml 3ml Pen) 25 unit SUBCUT BID [facility] [place] Last Admin: 01/04/23 08:41 Dose: Not Given Documented By: LORENA Metformin HCl (Metformin Hcl 500 Mg Tablet) 500 mg PO 0800,1200,1700 [facility] Last Admin: 01/04/23 13:04 Dose: Not Given Documented By: Admin: 01/04/23 08:22 Dose: 500 mg Documented By: LORENA Trazodone HCl (Trazodone 50 Mg Tablet) 50 mg PO BEDTIME [facility] Vital Signs Vital signs: Vital Signs - 8 hr 01/04/23 05:00 01/04/23 05:30 01/04/23 06:19 Pulse Rate 74 74 75 Respiratory Rate 19 16 Blood Pressure 106/59 L Pulse Oximetry 95 94 96 Oxygen Delivery Method Room Air 01/04/23 05:36 01/04/23 05:36 01/04/23 06:00 Pulse Rate 78 73 Respiratory Rate 21 Blood Pressure 108/65 109/59 L Pulse Oximetry 94 93 Oxygen Delivery Method 01/04/23 06:19 01/04/23 06:19 01/04/23 06:30 Pulse Rate 75 76 Respiratory Rate 18 20 Blood Pressure 106/59 L Pulse Oximetry 96 96 Oxygen Delivery Method 01/04/23 07:00 01/04/23 07:30 01/04/23 08:00 Pulse Rate 75 74 73 Respiratory Rate 18 20 20 Blood Pressure Pulse Oximetry 97 96 95 Oxygen Delivery Method 01/04/23 08:10 01/04/23 08:10 01/04/23 08:30 Pulse Rate 88 87 Respiratory Rate 22 21 Blood Pressure 104/62 Pulse Oximetry 97 97 Oxygen Delivery Method 01/04/23 08:31 01/04/23 08:31 01/04/23 09:00 Pulse Rate 88 97 H Respiratory Rate 23 22 Blood Pressure 108/65 Pulse Oximetry 97 99 Oxygen Delivery Method 01/04/23 09:30 01/04/23 10:00 01/04/23 10:30 Pulse Rate 85 76 75 Respiratory Rate 21 23 20 Blood Pressure Pulse Oximetry 96 94 95 Oxygen Delivery Method 01/04/23 11:00 01/04/23 11:30 01/04/23 11:30 Pulse Rate 78 91 H Respiratory Rate 21 22 Blood Pressure 106/60 Pulse Oximetry 96 98 Oxygen Delivery Method <Kings Cardoso, DO - Last Filed: 01/04/23 12:37> Orders Ordered: Discontinued Medications Divalproex Sodium (Divalproex Dr 250 Mg Tablet) 500 mg PO BID [facility] Last Admin: 01/04/23 08:19 Dose: 500 mg Documented By: LORENA Duloxetine HCl (Duloxetine 30 Mg Capsule) 30 mg PO BID [facility] Last Admin: 01/04/23 08:20 Dose: 30 mg Documented By: LORENA Glipizide (Glipizide 5 Mg Tablet) 5 mg PO QACBREAK [facility] [place] Last Admin: 01/04/23 08:24 Dose: Not Given Documented By: LORENA Haloperidol (Haloperidol 5 Mg Tablet) 10 mg PO DAILY [facility] [place] Last Admin: 01/04/23 08:20 Dose: 10 mg Documented By: LORENA Insulin Glargine (Insulin Glargine 100 Unit/Ml 3ml Pen) 25 unit SUBCUT BID [facility] [place] Last Admin: 01/04/23 08:41 Dose: Not Given Documented By: LORENA Metformin HCl (Metformin Hcl 500 Mg Tablet) 500 mg PO 0800,1200,1700 [facility] [place] Last Admin: 01/04/23 13:04 Dose: Not Given Documented By: Admin: 01/04/23 08:22 Dose: 500 mg Documented By: LORENA Trazodone HCl (Trazodone 50 Mg Tablet) 50 mg PO BEDTIME [facility] Vital Signs Vital signs: Vital Signs - 8 hr 01/04/23 05:00 01/04/23 05:30 01/04/23 06:19 Pulse Rate 74 74 75 Respiratory Rate 19 16 Blood Pressure 106/59 L Pulse Oximetry 95 94 96 Oxygen Delivery Method Room Air 01/04/23 05:36 01/04/23 05:36 01/04/23 06:00 Pulse Rate 78 73 Respiratory Rate 21 Blood Pressure 108/65 109/59 L Pulse Oximetry 94 93 Oxygen Delivery Method 01/04/23 06:19 01/04/23 06:19 01/04/23 06:30 Pulse Rate 75 76 Respiratory Rate 18 20 Blood Pressure 106/59 L Pulse Oximetry 96 96 Oxygen Delivery Method 01/04/23 07:00 01/04/23 07:30 01/04/23 08:00 Pulse Rate 75 74 73 Respiratory Rate 18 20 20 Blood Pressure Pulse Oximetry 97 96 95 Oxygen Delivery Method 01/04/23 08:10 01/04/23 08:10 01/04/23 08:30 Pulse Rate 88 87 Respiratory Rate 22 21 Blood Pressure 104/62 Pulse Oximetry 97 97 Oxygen Delivery Method 01/04/23 08:31 01/04/23 08:31 01/04/23 09:00 Pulse Rate 88 97 H Respiratory Rate 23 22 Blood Pressure 108/65 Pulse Oximetry 97 99 Oxygen Delivery Method 01/04/23 09:30 01/04/23 10:00 01/04/23 10:30 Pulse Rate 85 76 75 Respiratory Rate 21 23 20 Blood Pressure Pulse Oximetry 96 94 95 Oxygen Delivery Method 01/04/23 11:00 01/04/23 11:30 01/04/23 11:30 Pulse Rate 78 91 H Respiratory Rate 21 22 Blood Pressure 106/60 Pulse Oximetry 96 98 Oxygen Delivery Method MDM - Psych <Ella Pacheco, DO - Last Filed: 01/08/23 07:26> Lab Data 01/04/23 01:45 01/04/23 01:45 Labs: Lab Results 01/04/23 01/04/23 01/04/23 Range/Units 01:40 01:45 01:45 WBC 9.8 (4.5-11.0) X10^3/uL RBC 4.98 (4.0-5.2) X10^6/uL Hgb 14.5 (12.0-16.0) g/dL Hct 41.5 (36-46) % MCV 83.4 (80-100) fL MCH 29.0 (26-34) PG MCHC 34.8 (30-36) % RDW 13.3 (11.6-14.8) % Plt Count 262 (150-400) X10^3/uL Neut % (Auto) 66.3 (50-75) % Lymph % (Auto) 26.4 (25-40) % Cannon % (Auto) 5.7 (3-14) % Eos % (Auto) 0.9 L (2-4) % Baso % (Auto) 0.7 (0-2) % Neut # (Auto) 6500 (2295-1573) /uL Lymph # (Auto) 2600 (9101-4063) /uL Cannon # (Auto) 600 (0-900) /uL Eos # (Auto) 100 (0-450) /uL Baso # (Auto) 100 (0-100) /uL Sodium 139 (137-145) mmol/L Potassium 3.6 (3.4-5.1) mmol/L Chloride 100 (98-107) mmol/L Carbon Dioxide 28 (22-32) mmol/L BUN 6 L (7-17) mg/dL Creatinine 0.55 (0.52-1.04) mg/dL Estimated GFR > 60 (>60) mL/min BUN/Creatinine Ratio 10.9 (6-22) Glucose 107 H (70-100) mg/dL Calcium 9.2 (8.4-10.2) mg/dL Total Bilirubin 0.5 (0.2-1.3) mg/dL AST 26 (14-36) IU/L ALT 31 (<35) IU/L Alkaline Phosphatase 59 (38-126) U/L Total Protein 8.7 H (6.3-8.2) g/dL Albumin 4.4 (3.5-5.0) g/dL Globulin 4.3 H (1.7-4.1) g/dL Albumin/Globulin Ratio 1.0 (1.0-2.8) TSH (0.47-4.68) uIU/mL Free T4 (0.78-2.19) ng/dL Salicylates < 1.0 (<20) mg/dL U Opiates 300ng/mL cut Negative (Negative) Ur Oxycodone Screen Negative (Negative) Urine Methadone Screen Negative (Negative) Acetaminophen < 10 (10-30) ug/mL Ur Barbiturates Screen Negative (Negative) U Tricyclic Antidepress Negative (Negative) Ur Phencyclidine Scrn Negative (Negative) Ur Amphetamines Screen Negative (Negative) U Methamphetamines Scrn Negative (Negative) Ur MDMA Scrn (Ecstasy) Negative (Negative) U Benzodiazepines Scrn Negative (Negative) Urine Cocaine Screen Negative (Negative) U Marijuana (THC) Screen Negative (Negative) Ethyl Alcohol < 10 ( - 10) mg/dL SARS-CoV-2 (PCR) (Negative) 01/04/23 01/04/23 Range/Units 01:45 04:25 WBC (4.5-11.0) X10^3/uL RBC (4.0-5.2) X10^6/uL Hgb (12.0-16.0) g/dL Hct (36-46) % MCV (80-100) fL MCH (26-34) PG MCHC (30-36) % RDW (11.6-14.8) % Plt Count (150-400) X10^3/uL Neut % (Auto) (50-75) % Lymph % (Auto) (25-40) % Cannon % (Auto) (3-14) % Eos % (Auto) (2-4) % Baso % (Auto) (0-2) % Neut # (Auto) (8104-1587) /uL Lymph # (Auto) (3491-8285) /uL Cannon # (Auto) (0-900) /uL Eos # (Auto) (0-450) /uL Baso # (Auto) (0-100) /uL Sodium (137-145) mmol/L Potassium (3.4-5.1) mmol/L Chloride (98-107) mmol/L Carbon Dioxide (22-32) mmol/L BUN (7-17) mg/dL Creatinine (0.52-1.04) mg/dL Estimated GFR (>60) mL/min BUN/Creatinine Ratio (6-22) Glucose (70-100) mg/dL Calcium (8.4-10.2) mg/dL Total Bilirubin (0.2-1.3) mg/dL AST (14-36) IU/L ALT (<35) IU/L Alkaline Phosphatase (38-126) U/L Total Protein (6.3-8.2) g/dL Albumin (3.5-5.0) g/dL Globulin (1.7-4.1) g/dL Albumin/Globulin Ratio (1.0-2.8) TSH 5.56 H D (0.47-4.68) uIU/mL Free T4 1.70 (0.78-2.19) ng/dL Salicylates (<20) mg/dL U Opiates 300ng/mL cut (Negative) Ur Oxycodone Screen (Negative) Urine Methadone Screen (Negative) Acetaminophen (10-30) ug/mL Ur Barbiturates Screen (Negative) U Tricyclic Antidepress (Negative) Ur Phencyclidine Scrn (Negative) Ur Amphetamines Screen (Negative) U Methamphetamines Scrn (Negative) Ur MDMA Scrn (Ecstasy) (Negative) U Benzodiazepines Scrn (Negative) Urine Cocaine Screen (Negative) U Marijuana (THC) Screen (Negative) Ethyl Alcohol ( - 10) mg/dL SARS-CoV-2 (PCR) Negative (Negative) Point of Care Testing Test Results Negative Glucose POC 91 Urine Dip Bedside Urine Glucose Negative Bedside Urine Bilirubin - Negative Bedside Urine Ketone - Negative Urine Specific Joice 1.005 Bedside Urine Occult Blood - Negative Bedside Urine pH 6.0 Bedside Urine Protein - Negative Bedside Urine Urobilinogen - Negative Bedside Urine Nitrite - Negative Bedside Urine Leukocytes - Negative Esterase ECG Data Attestation: I personally reviewed and interpreted this ECG as follows: Prior ECG tracings: not available for review Interpretation: Sinus rhythm with occasional PVCs rate of 92 NE 160 QRS is 72, QTC of [address] changes noted. No change from prior 12/16/22. MDM Narrative Medical decision making narrative: This is a 27-year-old female with known psychiatric disorder who was recently discharged from [facility] after having a Tylenol overdose. Patient does not have any known recent ingestions, mom has been controlling her medications and states she gave her evening meds at 10:00 p.m.. She does have a history of diabetes, PCOS and mom states she is been taking her medications during her hospitalization and since discharge. Mom states she seems to be worsening in terms of her psychiatric care, she did tell her mother that she wanted to harm herself but was also indicated she would come here willingly which is atypical according to her mom. Patient does not have good insight and a feel that she is gravely disabled at this time. Labs, EKG and urine were obtained patient glucose is 107, TSH is elevated by free t4 is normal. urine is negative, UDS is negative. salicylate, tylenol and etoh levels are negative. Patient is medically cleared. Patient medications were confirmed with her mother and were ordered, patient had her evening medications prior to arrival. Plan to call to dispatch DCR patient appears gravely disabled at this time. Patient met with Gia SCHROEDER. She spoke with patient's mother this morning. Going to potentially seek placement at this time, going to check with [facility] first. Patient signed out to Dr. Cardoso while working toward disposition. <Kings Cardoso, DO - Last Filed: 04/16/23 12:37> Lab Data Labs: Lab Results 01/04/23 01/04/23 01/04/23 Range/Units 01:40 01:45 01:45 WBC 9.8 (4.5-11.0) X10^3/uL RBC 4.98 (4.0-5.2) X10^6/uL Hgb 14.5 (12.0-16.0) g/dL Hct 41.5 (36-46) % MCV 83.4 (80-100) fL MCH 29.0 (26-34) PG MCHC 34.8 (30-36) % RDW 13.3 (11.6-14.8) % Plt Count 262 (150-400) X10^3/uL Neut % (Auto) 66.3 (50-75) % Lymph % (Auto) 26.4 (25-40) % Cannon % (Auto) 5.7 (3-14) % Eos % (Auto) 0.9 L (2-4) % Baso % (Auto) 0.7 (0-2) % Neut # (Auto) 6500 (3123-5516) /uL Lymph # (Auto) 2600 (7774-5068) /uL Cannon # (Auto) 600 (0-900) /uL Eos # (Auto) 100 (0-450) /uL Baso # (Auto) 100 (0-100) /uL Sodium 139 (137-145) mmol/L Potassium 3.6 (3.4-5.1) mmol/L Chloride 100 (98-107) mmol/L Carbon Dioxide 28 (22-32) mmol/L BUN 6 L (7-17) mg/dL Creatinine 0.55 (0.52-1.04) mg/dL Estimated GFR > 60 (>60) mL/min BUN/Creatinine Ratio 10.9 (6-22) Glucose 107 H (70-100) mg/dL Calcium 9.2 (8.4-10.2) mg/dL Total Bilirubin 0.5 (0.2-1.3) mg/dL AST 26 (14-36) IU/L ALT 31 (<35) IU/L Alkaline Phosphatase 59 (38-126) U/L Total Protein 8.7 H (6.3-8.2) g/dL Albumin 4.4 (3.5-5.0) g/dL Globulin 4.3 H (1.7-4.1) g/dL Albumin/Globulin Ratio 1.0 (1.0-2.8) TSH (0.47-4.68) uIU/mL Free T4 (0.78-2.19) ng/dL Salicylates < 1.0 (<20) mg/dL U Opiates 300ng/mL cut Negative (Negative) Ur Oxycodone Screen Negative (Negative) Urine Methadone Screen Negative (Negative) Acetaminophen < 10 (10-30) ug/mL Ur Barbiturates Screen Negative (Negative) U Tricyclic Antidepress Negative (Negative) Ur Phencyclidine Scrn Negative (Negative) Ur Amphetamines Screen Negative (Negative) U Methamphetamines Scrn Negative (Negative) Ur MDMA Scrn (Ecstasy) Negative (Negative) U Benzodiazepines Scrn Negative (Negative) Urine Cocaine Screen Negative (Negative) U Marijuana (THC) Screen Negative (Negative) Ethyl Alcohol < 10 ( - 10) mg/dL SARS-CoV-2 (PCR) (Negative) 01/04/23 01/04/23 Range/Units 01:45 04:25 WBC (4.5-11.0) X10^3/uL RBC (4.0-5.2) X10^6/uL Hgb (12.0-16.0) g/dL Hct (36-46) % MCV (80-100) fL MCH (26-34) PG MCHC (30-36) % RDW (11.6-14.8) % Plt Count (150-400) X10^3/uL Neut % (Auto) (50-75) % Lymph % (Auto) (25-40) % Cannon % (Auto) (3-14) % Eos % (Auto) (2-4) % Baso % (Auto) (0-2) % Neut # (Auto) (8049-1750) /uL Lymph # (Auto) (2669-1031) /uL Cannon # (Auto) (0-900) /uL Eos # (Auto) (0-450) /uL Baso # (Auto) (0-100) /uL Sodium (137-145) mmol/L Potassium (3.4-5.1) mmol/L Chloride (98-107) mmol/L Carbon Dioxide (22-32) mmol/L BUN (7-17) mg/dL Creatinine (0.52-1.04) mg/dL Estimated GFR (>60) mL/min BUN/Creatinine Ratio (6-22) Glucose (70-100) mg/dL Calcium (8.4-10.2) mg/dL Total Bilirubin (0.2-1.3) mg/dL AST (14-36) IU/L ALT (<35) IU/L Alkaline Phosphatase (38-126) U/L Total Protein (6.3-8.2) g/dL Albumin (3.5-5.0) g/dL Globulin (1.7-4.1) g/dL Albumin/Globulin Ratio (1.0-2.8) TSH 5.56 H D (0.47-4.68) uIU/mL Free T4 1.70 (0.78-2.19) ng/dL Salicylates (<20) mg/dL U Opiates 300ng/mL cut (Negative) Ur Oxycodone Screen (Negative) Urine Methadone Screen (Negative) Acetaminophen (10-30) ug/mL Ur Barbiturates Screen (Negative) U Tricyclic Antidepress (Negative) Ur Phencyclidine Scrn (Negative) Ur Amphetamines Screen (Negative) U Methamphetamines Scrn (Negative) Ur MDMA Scrn (Ecstasy) (Negative) U Benzodiazepines Scrn (Negative) Urine Cocaine Screen (Negative) U Marijuana (THC) Screen (Negative) Ethyl Alcohol ( - 10) mg/dL SARS-CoV-2 (PCR) Negative (Negative) Point of Care Testing Test Results Negative Glucose POC 91 Urine Dip Bedside Urine Glucose Negative Bedside Urine Bilirubin - Negative Bedside Urine Ketone - Negative Urine Specific Joice 1.005 Bedside Urine Occult Blood - Negative Bedside Urine pH 6.0 Bedside Urine Protein - Negative Bedside Urine Urobilinogen - Negative Bedside Urine Nitrite - Negative Bedside Urine Leukocytes - Negative Esterase MDM Narrative Medical decision making narrative: This is a 27-year-old female with known psychiatric disorder who was recently discharged from [facility] after having a Tylenol overdose. Patient does not have any known recent ingestions, mom has been controlling her medications and states she gave her evening meds at 10:00 p.m.. She does have a history of diabetes, PCOS and mom states she is been taking her medications during her hospitalization and since discharge. Mom states she seems to be worsening in terms of her psychiatric care, she did tell her mother that she wanted to harm herself but was also indicated she would come here willingly which is atypical according to her mom. Patient does not have good insight and a feel that she is gravely disabled at this time. Labs, EKG and urine were obtained patient glucose is 107, TSH is elevated by free t4 is normal. urine is negative, UDS is negative. salicylate, tylenol and etoh levels are negative. Patient is medically cleared. Patient medications were confirmed with her mother and were ordered, patient had her evening medications prior to arrival. Plan to call to dispatch DCR patient appears gravely disabled at this time. Patient met with Gia SCHROEDER. She spoke with patient's mother this morning. Going to potentially seek placement at this time, going to check with [facility] first. Patient signed out to Dr. Cardoso while working toward disposition. Dr cardoso: Received turned over. Review patient's history and physical workup up to this point. Patient remains medically clear. DCR has been involved and will involuntarily detained patient. Placement has been found by DCR. Patient will be transported. Patient is stable for transport. Discharge Plan Departure Patient Disposition: Xfer Psychiatric Hosp Clinical Impression: Suicidal ideation Prescriptions: No Action metformin 500 mg tablet 500 mg PO BIDWMEAL Rx Instructions: 1 tablet by mouth twice daily with meals divalproex 250 mg tablet,delayed release (DR/EC) 500 mg PO BID glipizide 5 mg tablet extended release 24hr 5 mg PO QACBREAK haloperidol 10 mg tablet 10 mg PO DAILY trazodone 50 mg Tablet 50 mg PO BEDTIME PRN (Reason: Insomnia) hydroxyzine pamoate 50 mg capsule 50 mg PO Q4HR PRN (Reason: Anxiety) duloxetine 30 mg capsule,delayed release(DR/EC) 30 mg PO BID insulin glargine [Lantus U-100 Insulin] 100 unit/mL solution 25 unit SUBCUT BID Patient Comments: INJECT 25 UNITS SUBCUTANEOUSLY IN THE MORNING AND AT BEDTIME
[2023-01-04 01:49] LABS: UR Morphine/Opiate cutoff 300 Negative (Negative); Ur Creatinine Normal (Normal); Ur Specific Gravity Normal (Normal); Urine Amphetamines Negative (Negative); Urine Barbiturates Negative (Negative); Urine Benzodiazepines Negative (Negative); Urine Cocaine Negative (Negative); Urine MDMA Negative (Negative); Urine Methadone Negative (Negative); Urine Methamphetamines Negative (Negative); Urine Oxycodone Negative (Negative); Urine Phencyclidine Negative (Negative); Urine Tetrahydrocannabinol Negative (Negative); Urine Tricyclic Antidepressant Negative (Negative); Urine pH Normal (Normal)
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
[2023-01-04 02:01] LABS: Add Manual Diff / Slide Review NO; Basophils Absolute Auto 100 /uL (0-100); Basophils Percent Auto 0.7 % (0-2); Eosinophils Absolute Auto 100 /uL (0-450); Eosinophils Percent Auto 0.9 % (2-4); Hematocrit 41.5 % (36-46); Hemoglobin 14.5 g/dL (12.0-16.0); Lymphocytes Absolute Auto 2600 /uL (1100-4500); Lymphocytes Percent Auto 26.4 % (25-40); Mean Corpuscular HGB Conc 34.8 % (30-36); Mean Corpuscular Volume 83.4 fL (80-100); Monocytes Absolute Auto 600 /uL (0-900); Monocytes Percent Auto 5.7 % (3-14); Neutrophils Absolute Auto 6500 /uL (1500-7000); Neutrophils Percent Auto 66.3 % (50-75); Platelet Count 262 X10^3/uL (150-400); Red Blood Cell Count 4.98 X10^6/uL (4.0-5.2); Red Cell Distribution Width 13.3 % (11.6-14.8); White Blood Cell Count 9.8 X10^3/uL (4.5-11.0)
[2023-01-04 02:05] LABS: Acetaminophen < 10 ug/mL (10-30); Alanine Aminotransferase 31 IU/L (<35); Albumin 4.4 g/dL (3.5-5.0); Alkaline Phosphatase 59 U/L (38-126); Aspartate Aminotransferase 26 IU/L (14-36); BUN Creatinine Ratio 10.9 (6-22); Bilirubin Total 0.5 mg/dL (0.2-1.3); Blood Urea Nitrogen 6 mg/dL (7-17); Calcium 9.2 mg/dL (8.4-10.2); Carbon Dioxide 28 mmol/L (22-32); Chloride 100 mmol/L (98-107); Estimated Glomerular Filt Rate > 60 mL/min (>60); Ethanol (ETOH) < 10 mg/dL; Globulin 4.3 g/dL (1.7-4.1); Glucose 107 mg/dL (70-100); HEMOLYSIS 17 (0-50); Potassium 3.6 mmol/L (3.4-5.1); Salicylate < 1.0 mg/dL (<20); Sodium 139 mmol/L (137-145); Total Protein 8.7 g/dL (6.3-8.2)
[2023-01-04 02:40] LABS: Thyroid Stimulating Hormone 5.56 uIU/mL (0.47-4.68)
[2023-01-04 04:45] LABS: COVID19 -Nasal RAPID Negative (Negative)
[2023-01-04] MEDS: DIVALPROEX DR 250 MG TABLET 500 MG PO (08:19)
[2023-01-04] MEDS: DULOXETINE 30 MG CAPSULE PO (08:20)
[2023-01-04] MEDS: haloperidoL 5 MG TABLET 10 MG PO (08:20)
[2023-01-04] MEDS: METFORMIN HCL 500 MG TABLET PO (08:22)
--- NOTE | 2023-01-04 09:16 | PC.NURSE ---
pt had a unmeasured void.
--- NOTE | 2023-01-04 11:01 | PC.NURSE ---
SPoke with ELDA, Jewels Hemphill twice. She is working on a bed for patient.
--- NOTE | 2023-01-04 12:15 | PC.NURSE ---
[facility] papers served to patient via DCR video call and staff in the room. Pt received her appropriate copies as instructed by DCR.
== END 2023-01-04 12:50 ==
PROVIDERS: Emergency Medicine; Emergency Provider Emergency Medicine
DX: R45.851 Suicidal ideations (principal); R07.9 Chest pain, unspecified; Z79.899 Other long term (current) drug therapy; Z20.822 Contact with and (suspected) exposure to COVID-19
CPT/HCPCS: 36415; 80053; 80305; 80320; 80329; 81003; 81025; 82962; 84439; 84443; 85025; 87635; 93005; 93010; 99284; C9803; G0480